=== PATIENT | male | born 1965 | race Caucasian/White ===

== ENCOUNTER 2023-04-05 14:49 | Outpatient (OUT) | payer BC, SELFPAY ==
[2023-04-05 15:19] LABS: Basophils Absolute Auto 0.1 10^3/uL (0.0-0.1); Basophils Percent Auto 0.8 % (0.2-2.0); Eosinophils Absolute Auto 0.1 10^3/uL (0.0-0.7); Eosinophils Percent Auto 1.3 % (0.9-7.0); Hematocrit 43.9 % (42.0-54.0); Hemoglobin 15.1 g/dL (14.0-18.0); Immature Granulocytes Abs Auto 0.02 10^3/uL (0.00-0.03); Immature Granulocytes Pct Auto 0.3 % (0.0-0.5); Lymphocytes Absolute Auto 2.6 10^3/uL (1.2-3.8); Mean Corpuscular HGB Conc 34.4 g/dL (29.9-35.2); Mean Corpuscular Hemoglobin 32.8 pg (25.9-34.0); Mean Corpuscular Volume 95.4 fL (80.0-94.0); Mean Platelet Volume 9.1 fL (9.5-13.5); Monocytes Absolute Auto 0.7 10^3/uL (0.3-0.8); Monocytes Percent Auto 10.5 % (1.7-12.0); Neutrophils Absolute Auto 2.8 10^3/uL (1.4-6.5); Neutrophils Percent Auto 45.1 % (43.0-75.0); Platelet Count 265 10^3/uL (150-450); Red Cell Distribution Width 12.6 % (11.0-15.0); White Blood Count 6.3 10^3/uL (4.0-11.0)
[2023-04-05 15:37] LABS: Alanine Aminotransferase 16 U/L (16-63); Albumin Globulin Ratio 1.2; Albumin Level 3.6 g/dL (3.4-5.0); Alkaline Phosphatase 76 U/L (46-116); Anion Gap 7.7; Aspartate Amino Transferase 24 U/L (15-37); BUN Creatinine Ratio 12.2; Bilirubin Total 0.4 mg/dL (0.2-1.0); Calcium 8.6 mg/dL (8.5-10.1); Carbon Dioxide 32.1 mmol/L (21.0-32.0); Chloride 103 mmol/L (98-107); Chol HDL Ratio 3.8; Cholesterol 181 mg/dL (<=200); Estimated GFR (African America >60 (>=60); Estimated GFR (Non-African Ame >60 (>=60); Glucose 88 mg/dL (74-106); HDL Cholesterol 48 mg/dL (40-60); Potassium 3.8 mmol/L (3.5-5.1); Sodium 139 mmol/L (136-145); Total Protein 6.6 g/dL (6.4-8.2); Triglycerides 150 mg/dL (<=150)
== END 2023-04-05 14:50 | disposition home or self-care (01) ==
PROVIDERS: PCP Nurse Practitioner Family; Visit Provider Nurse Practitioner Family
DX: Z00.00 Encounter for general adult medical examination without abnormal findings (principal); Z13.220 Encounter for screening for lipoid disorders; Z13.228 Encounter for screening for other metabolic disorders; Z13.0 Encounter for screening for diseases of the blood and blood-forming organs and certain disorders involving the immune mechanism
CPT/HCPCS: 36415; 80053; 80061; 85025

== ENCOUNTER 2023-04-23 15:00 | Outpatient (OUT) | payer BC, SELFPAY ==
--- NOTE | 2023-04-23 15:03 | CT_ITS ---
The [address] [address] Patient Name: BRYANT RICHARD MRN: [id number] date: 1965 Sex: M Assigned Patient Location: CT Current Patient Location: Accession/Order Number: [id number] Exam Date: 04/23/2023 15:10 Report Date: 04/24/2023 04:16 At the request of: NICOLA BELTRAN Procedure: CT lung screening low-dose EXAMINATION: CT lung screening low-dose HISTORY: Nicotine dependence F17.210 COMPARISON: No relevant comparison available. TECHNIQUE: Axial, Coronal, and Sagittal images were created without the administration of IV contrast material. Dose reduction techniques were achieved by using automated exposure control and/or adjustment of mA and/or kV according to patient size and/or use of iterative reconstruction technique. FINDINGS: LUNGS: Mild emphysematous changes. Several 5 mm smoothly circumscribed pleural-based nodules. PLEURA: No pleural effusion or pneumothorax. VASCULATURE: No abnormality. REGAN: No mass or pathologic adenopathy. MEDIASTINUM: No mass or pathologic adenopathy. CARDIAC: No enlargement, pericardial thickening, or significant calcification. AORTA: No aneurysm or dissection. CHEST WALL: No mass or axillary adenopathy BONES: No bone lesion or fracture. LIMITED ABDOMEN: No suspicious findings. Limited images of the upper abdomen. OTHER: Negative. CT/CT lung screening low-dose IMPRESSION: 1. Lung-RADS Category 3- Probably benign. Probably benign finding(s)- short term follow up suggested; includes nodules with a low likelihood of becoming a clinically active cancer. Six month LDCT. Electronically authenticated by: DINESH SANCHEZ Date: 04/24/2023 04:16
== END 2023-04-23 15:01 | disposition home or self-care (01) ==
LOC: CT 15:00
PROVIDERS: PCP Nurse Practitioner Family; Visit Provider Nurse Practitioner Family
DX: F17.210 Nicotine dependence, cigarettes, uncomplicated (principal)
CPT/HCPCS: 71271

== ENCOUNTER 2023-05-29 09:43 | Outpatient (OUT) | payer BC, SELFPAY ==
[2023-05-30 08:11] LABS: Testosterone 551 ng/dL (264-916)
== END 2023-05-29 09:44 | disposition home or self-care (01) ==
LOC: LAB 09:44
PROVIDERS: PCP Nurse Practitioner Family; Visit Provider Urology
DX: N52.9 Male erectile dysfunction, unspecified (principal)
CPT/HCPCS: 36415; 84403

== ENCOUNTER 2025-07-27 10:05 | Outpatient (OUT) | payer BC, SELFPAY ==
--- OUTSIDE RECORDS SUMMARY | 2025-06-30 13:15 | XMS_ITS | Encounter Summary ---
Author Organization [facility] Address [address] [facility] [address] [place] [place] [address] Care Team Providers Care Human Resources Clerk Name Role Phone Dorothea White RAEANN-ELECTRICAL ELECTRONICS ENGINEER Unavailable [phone] Mar Singh MD Unavailable Reason for Visit * ReasonCommentsPost Op Check Encounter Details DateTypeDepartmentCare Team (Latest Contact Info)Vkcwiuxqzzb39/19/2025 1:15 PM ESTOffice Visit [facility] [address] [place] [address] Mar Singh MD [address] [facility] [place] [address] Encounter for attention to colostomy (HCC) (Primary Dx); Body mass index (BMI) 26.0-26.9, adult Social History Tobacco UseTypesPacks/DayYears UsedDateSmoking Tobacco: Some DaysCigarettes Smokeless Tobacco: Never Tobacco Cessation:Counseling Given: Yes [facility] UtilitiesAnswerDate RecordedIn the past 12 months has the [employer], gas, oil, or water [employer] threatened to shut off services in your home?No04/26/2025 Humiliation, Afraid, Rape, and Kick questionnaireAnswerDate RecordedFear of Current or Ex-PartnerNot on file04/26/2025Within the last year, have you been humiliated or emotionally abused in other ways by your partner or ex-partner?No 04/26/2025Physically AbusedNot on file04/26/2025Sexually AbusedNot on file 04/26/2025Hunger Vital SignAnswerDate RecordedWithin the past 12 months, you worried that your food would run out before you got the money to buymore.Never true04/26/2025Ran Out of Food in the Last YearNot on file04/26/2025PRAPARE - TransportationAnswerDate RecordedIn the past 12 months, has lack of transportation kept you from medical appointments or from getting medications?No 04/26/2025Lack of Transportation (Non-Medical)Not on file04/26/2025Housing Stability Vital SignAnswerDate RecordedIn the last 12 months, was there a time when you were not able to pay the mortgage or rent on time?No04/26/2025Number of Times Moved in the Last YearNot on file04/26/2025Homeless in the Last YearNot on file04/26/2025Utilities - HistoricalAnswerDate RecordedIn the past 12 months has the [employer], gas, oil, or water [employer] threatened to shut off services in your home?No04/26/2025Sex and Gender InformationValueDate RecordedSex Assigned at BirthNot on fileLegal HsiFfsh9704/25/2025 9:14 PM EDTGender IdentityNot on file Sexual OrientationNot on filedocumented as of this encounter Last Filed Vital Signs Vital SignReadingTime TakenCommentsBlood Twmhygpk671/8206/30/2025 1:10 PM EST Mnffb470906/30/2025 1:10 PM ESTTemperature--Respiratory Rate--Oxygen Saturation-- Inhaled Oxygen Concentration--Kkpgwz48.9 kg (185 lb)06/30/2025 1:10 PM ESTHeight 177.8 cm (5' 10 )06/30/2025 1:10 PM ESTBody Mass Index26.5406/30/2025 1:10 PM ESTdocumented in this encounter Progress Notes * Mar Singh MD - 06/30/2025 1:15 PM EST [facility] Follow Up Cr Hall is a 59 year old male with obesity (BMI 26), tobacco use, diverticulitis s/p open Kourtney's with Drs. Milton and Americo on 04/30/25 here for follow-up. HPI: He was last seen by me in the office on 06/03/25 at which time he wasn't feeling a whole lot bettercompared to before surgery. He described chronic indigestion with decreased appetite and difficultywith this stoma bag. He saw Dorothea Valentinoalan on a weekly basis and they identified a pouching system that appears to be working. I did order a CT adrenal for him which he has this afternoon. Today he says he is doing well. He denies pain, bleeding. His stoma is pouching well and his wound is healing. Stoma has good function and has been stable in size. He has no complaints. Colonoscopy 1 year ago per patient report with precancerous polyps removed. Medical History[1] Surgical History[2] Medications Ordered Prior to Encounter[3] Allergies: Allergies[4] Family History[5] Social History[6] Review of Systems: A complete review of systems was performed and is negative except as noted in the HPI Physical Examination: Vitals Recorded in This Encounter No data found in the last 1 encounters. BMI: Data Unavailable General: No distress, awake Skin: No jaundice or rashes HEENT: Normocephalic, mucous membranes moist Lungs: Normal work of breathing Abdomen: Soft, nontender, nondistended. No masses. Healing midline wound, small colostomy which is pink, healthy peristomal skin. Extremities: Warm, no edema Neuro: Grossly intact Assessment & Plan Encounter for attention to colostomy (HCC) Doing well! Reports a colonoscopy last year. I would wait at least 6 months from the time of his surgery to reverse - today is two months. - Return to clinic 2 months to discus reversal in October Documentation: Mode: In Person Time-Based Billing Justifications: Charting in Epic Patient visit (including performing a medically appropriate exam) Obtaining history (or reviewing separately obtained history) Reviewing (chart, labs, and other clinical notes) Counseling/educating the patient/family/caregiver Mar Singh MD 06/30/25 7:55 AM [1] No past medical history on file. [2] Past Surgical History: Procedure Laterality Date INSERTION, STENT Bilateral 04/30/2025 Procedure: INSERTION, STENT; Surgeon: Domonique Milton MD; Location: PERIOPERATIVE SERVICES; Service: General LAPAROTOMY, EXPLORATORY N/A 04/30/2025 Procedure: Exploratory laparotomy, abdominal washout, sigmoidectomy, end colostomy, drainage pelvisabscess; Surgeon: Domonique Milton MD; Location: PERIOPERATIVE SERVICES; Service: General [3] Current Outpatient Medications on File Prior to Visit Medication Sig Dispense Refill AMOXICILLIN ORAL Take by mouth. acetaminophen (TYLENOL) 500 MG tablet Take 2 Tablets by mouth every 8 hours. 60 Tablet 0 methocarbamol (ROBAXIN) 750 MG tablet Take 1 Tablet by mouth every 6 (six) hours. 120 Tablet 3 pantoprazole (PROTONIX) 40 MG tablet Take 40 mg by mouth daily. No current facility-administered medications on file prior to visit. [4] No Known Allergies [5] No family history on file. [6] Social History Socioeconomic History Marital status: Tobacco Use Smoking status: Some Days Types: Cigarettes Smokeless tobacco: Never Vaping Use Vaping status: Never Used Social Drivers of Studentgems Food Insecurity: Unknown (04/26/2025) Hunger Vital Sign Worried About Running Out of Food in the Last Year: Never true Transportation Needs: Unknown (04/26/2025) PRAPARE - Transportation Lack of Transportation (Medical): No Intimate Partner Violence: Unknown (04/26/2025) Humiliation, Afraid, Rape, and Kick questionnaire Emotionally Abused: No documented in this encounter Plan of Treatment DateTypeDepartmentCare Team (Latest Contact Info)Hlnbfprvsod27/30/2025 1:30 PM ESTOffice Visit [facility] [address] [place] [phone] Dorothea White APRN-MCKENZIE [address] [place] [address] 09/01/2025 1:30 PM ESTOffice Visit [facility] General Surgery [address] [place] [address] Mar Singh MD [address] [place] [address] documented as of this encounter Visit Diagnoses Diagnosis Encounter for attention to colostomy (HCC)- Primary Attention to colostomy Body mass index (BMI) 26.0-26.9, adult documented in this encounter Care Teams Team MemberRelationshipSpecialtyStart DateEnd Date Thombs, Dorothea, [employer] HRMS DEVELOPER-ELECTRICAL ELECTRONICS ENGINEER [address] [place], [place] [id number] APNGeneral Slptepd04/6/25 Mar Singh MD [address] [place] [address] PhysicianGeneral Faxgifw59/6/25documented as of this encounter
--- OUTSIDE RECORDS SUMMARY | 2025-07-14 14:00 | XMS_ITS | Encounter Summary ---
Author Organization [facility] Address [address] [place] [address] Care Team Providers Care Tar Distillation Supervisor Name Role Phone Christopher Dorothea MACHINE HEEL SEAT LASTER-CONSTRUCTION SITE CROSSING GUARD Unavailable [phone] Mar Singh MD Unavailable Reason for Visit * ReasonCommentsWound CheckColostomy in place Encounter Details DateTypeDepartmentCare Team (Latest Contact Info)Tzaqlzworeu30/03/2025 2:00 PM ESTOffice Visit [facility] [address] [place] [address] Dorothea White, MACHINE HEEL SEAT LASTERCONSTRUCTION SITE CROSSING GUARD [address] [place], [place] [phone] 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); Peristomal dermatitis associated with moisture; Open wound of anterior abdominal wall with complication, subsequent encounter Social History Tobacco UseTypesPacks/DayYears UsedDateSmoking Tobacco: Some DaysCigarettes Smokeless Tobacco: NeverAHC UtilitiesAnswerDate RecordedIn the past 12 months has the [employer], gas, oil, or water [employer] threatened to shut off services in your home?No04/26/2025Humiliation, Afraid, Rape, and Kick questionnaireAnswer Date RecordedFear of Current or Ex-PartnerNot on file04/26/2025Within the last year, have you been humiliated or emotionally abused in other ways by your partner or ex-partner?No04/26/2025Physically AbusedNot on file04/26/2025Sexually AbusedNot on file04/26/2025Hunger Vital SignAnswerDate RecordedWithin the past 12 months, you worried that your food would run out before you got the money to buymore.Never true04/26/2025Ran Out of Food in the Last YearNot on file 04/26/2025PRAPARE - TransportationAnswerDate RecordedIn the past 12 months, has lack of transportation kept you from medical appointments or from getting medications?No04/26/2025Lack of Transportation (Non-Medical)Not on file 04/26/2025Housing Stability Vital SignAnswerDate RecordedIn the last 12 months, was there a time when you were not able to pay the mortgage or rent on time?No 04/26/2025Number of Times Moved in the Last YearNot on file04/26/2025Homeless in the Last YearNot on file04/26/2025Utilities - HistoricalAnswerDate RecordedIn the past 12 months has the electric, gas, oil, or water company threatened to shut off services in your home?No04/26/2025Sex and Gender InformationValueDate RecordedSex Assigned at BirthNot on fileLegal LapFefj1304/25/2025 9:14 PM EDT Gender IdentityNot on fileSexual OrientationNot on filedocumented as of this encounter Patient Instructions * Patient Instructions* Dorothea White APRN-CNS - 07/14/2025 2:20 PM EST Clean skin around stoma using soap and water, then dry. Use the domboro's solution soak only when needed for irritated skin, otherwise you can skip this step Apply ostomy powder all over skin- OK if it gets on the ostomy. Rub in the powder and brush off theexcess. Apply skin barrier all over skin to seal and to protect skin. Apply hollihesive triangle to skin, cut center out to accommodate ostomy Apply small bead of paste on sides of ostomy- at 3 and 9 o'clock Cut the pouch to about 7/8 size, oval and apply paste to edge of opening Apply the one piece Coloplast pouch. Apply curved barrier strips. Wear belt Follow up in 2 weeks. documented in this encounter Progress Notes * Dorothea White APRN-CNS - 07/14/2025 2:00 PM EST Ostomy Clinic Visit Patient was identified by name and date of . Preferred Language: Ethiopian Intervention Used: none HPI: 59 yo male with PMH of BPH, recently admitted with perforated diverticulitis S/p open sigmoidectomy, abdominal washout, end colostomy with rectal stump (Kourtney Procedure) with Dr Milton and Dr Driscoll on 04/30/25. Using the [place] hollihesive, paste applied to edge of pouch opening. coloplast deep convex pouchwith curved barrier strips and belt Pouch placed Saturday, still intact but with leakage medially Home is coming weekly to help with dressings/pouching Medical History[1] Surgical History[2] Allergies[3] Medications Ordered Prior to Encounter[4] Problem List[5] Review Of Systems: Skin: abdominal wounds Gastrointestinal: ostomy Neurologic: weakness Exam: General: No signs of distress, A+Ox3, ambulated to room independently Type of Stoma: colostomy and end Location: [facility] Present: no Stoma Measurement (inches) 3/4 , cut to 1 inch, oval Mucosa color/condition: red and moist Mucocutaneous Juncture: separation is minimal and healing well Peristomal Skin: intact, slight maceration just under ostomy due to location of opening Peristomal Contour: semi-firm abdomen with large mound of skin superiorly and ostomy in concave area under this mound Supportive Tissue: semi-firm Output: semi-loose stool Protrusion: skin level Pouch Changed: yes Pouch/Appliance: Peristomal skin cleansed using soap and water, then dried. Skin then dusted with nystatin powder. Excess powder dusted off and no sting barrier film applied. [place] hollihesive, paste applied to edge of pouch opening. Midline wounds covered in aquacel AG followed by rectangle hollihesive. Paste applied to medial edge of rectangle to caulk. Placed patient in a coloplast deep convex pouch with curved barrier strips and belt. 2 remaining open areas along surgical incision, mainly superior to ostomy. Hypergranular- silver nitrate applied. Smaller in size. Patient Education: Reviewed ostomy pouching procedure with patient. Reviewed wound care instructions. Time-based billing justifications: Reviewing (chart, labs, and other clinical notes) Obtaining history (or reviewing separately obtained history) Patient visit (including performing a medically appropriate exam) Counseling/educating the patient/family/caregiver Charting in [facility] Impression: 59 yo male with healing abdominal wounds, continue with pouching with deep convexity, added some beads of paste to sides today Plan: Clean skin around stoma using soap and water, then dry. Use the domboro's solution soak only when needed for irritated skin, otherwise you can skip this step Apply ostomy powder all over skin- OK if it gets on the ostomy. Rub in the powder and brush off theexcess. Apply skin barrier all over skin to seal and to protect skin. Apply hollihesive triangle to skin, cut center out to accommodate ostomy Apply small bead of paste on sides of ostomy- at 3 and 9 o'clock Cut the pouch to about 7/8 size, oval and apply paste to edge of opening Apply the one piece Coloplast pouch. Apply curved barrier strips. Wear belt Follow up in 2 weeks. Dorothea White, MACHINE HEEL SEAT LASTER- CONSTRUCTION SITE CROSSING GUARD, CWOCN [1] No past medical history on file. [2] Past Surgical History: Procedure Laterality Date INSERTION, STENT Bilateral 04/30/2025 Procedure: INSERTION, STENT; Surgeon: Domonique Milton MD; Location: PERIOPERATIVE SERVICES; Service: General LAPAROTOMY, EXPLORATORY N/A 04/30/2025 Procedure: Exploratory laparotomy, abdominal washout, sigmoidectomy, end colostomy, drainage pelvisabscess; Surgeon: Domonique Milton MD; Location: PERIOPERATIVE SERVICES; Service: General [3] No Known Allergies [4] Current Outpatient Medications on File Prior to Visit Medication Sig Dispense Refill AMOXICILLIN ORAL Take by mouth. (Patient not taking: Reported on 06/30/2025) acetaminophen (TYLENOL) 500 MG tablet Take 2 Tablets by mouth every 8 hours. (Patient not taking: Reported on 06/30/2025) 60 Tablet 0 methocarbamol (ROBAXIN) 750 MG tablet Take 1 Tablet by mouth every 6 (six) hours. (Patient not taking: Reported on 06/30/2025) 120 Tablet 3 pantoprazole (PROTONIX) 40 MG tablet Take 40 mg by mouth daily. No current facility-administered medications on file prior to visit. 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 Low back pain M54.50 Muscle strain of anterior chest wall S29.011A documented in this encounter Plan of Treatment DateTypeDepartmentCare Team (Latest Contact Info)Ebmanmvumwb80/30/2025 1:30 PM ESTOffice Visit [facility] [address] [place] [phone] Dorothea White APRN-CNS [address] [place], [place] [phone] 09/01/2025 1:30 PM ESTOffice Visit [facility] General Surgery [address] [place] [address] Mar Singh MD [address] [place] [address] [address] [place], [place] [phone] documented as of this encounter Visit Diagnoses Diagnosis Colostomy in place (HCC)- Primary Colostomy status Peristomal dermatitis associated with moisture Open wound of anterior abdominal wall with complication, subsequent encounter documented in this encounter Care Teams Team MemberRelationshipSpecialtyStart DateEnd Date Dorothea White APRN-CNS [address] [place] [id number] APNGeneral Qnjwlub80/6/25 Mar Singh MD [address] [place] [address] [place] [address] PhysicianGeneral Zipskvn35/6/25documented as of this encounter
--- OUTSIDE RECORDS SUMMARY | 2025-07-23 15:00 | XMS_ITS | Encounter Summary ---
Author Organization [facility] Address [address] [facility] [address] [place] [address] Care Team Providers Care Family Preservation Caseworker Name Role Phone Dorothea White RAEANN-AUTOMOBILE REPAIR SERVICE ESTIMATOR Unavailable [phone] Mar Singh MD Unavailable Reason for Visit * MRI/CAT Scan (Routine) - Pending ReviewSpecialtyDiagnoses / ProceduresReferred By ContactReferred To ContactRadiology Diagnoses Lesion of adrenal gland (HCC) Procedures CT ADRENAL W/+W/O CONTRAST Mar Singh MD [address] [facility] [place] [address] Phone: tel: fax: [facility] CT SCAN Phone: tel: Referral IDStatusReasonStart DateExpiration DateVisits RequestedVisits [id number] Review Patient Preference Encounter Details DateTypeDepartmentCare Team (Latest Contact Info)Tnjvppoidam87/12/2025 3:00 PM ESTAncillary Procedure [facility] [address] [place] [address] Arrived Social History Tobacco UseTypesPacks/DayYears UsedDateSmoking Tobacco: Some DaysCigarettes Smokeless Tobacco: NeverAHC UtilitiesAnswerDate RecordedIn the past 12 months has the electric, gas, oil, or water [employer] threatened to shut off services in your [...] has the electric, gas, oil, or water [employer] threatened to shut off services in your home?No04/26/2025Sex and Gender InformationValueDate RecordedSex Assigned at BirthNot on fileLegal FhcHxcy5404/25/2025 9:14 PM EDT Gender IdentityNot on fileSexual OrientationNot on filedocumented as of this encounter Plan of Treatment DateTypeDepartmentCare Team (Latest Contact Info)Qgynrzqeifz80/30/2025 1:30 PM ESTOffice Visit [facility] [address] [place] [address] Dorothea White APRN-MCKENZIE [address] [place] [address] 09/01/2025 1:30 PM ESTOffice Visit [facility] [id number] [place] [address] Mar Singh MD [address] [facility] [place] [address] documented as of this encounter Procedures Procedure NamePriorityDate/TimeAssociated DiagnosisCommentsCT ADRENAL W/+W/O DIBFCMTEHklowgg18/12/2025 3:35 PM EST Lesion of adrenal gland (HCC) documented in this encounter Results * CT ADRENAL W/+W/O CONTRAST (07/23/2025 3:35 PM EST)ComponentValueRef RangeTest MethodAnalysis TimePerformed AtPathologist SignatureCTDI VOL0.03 (mGy),0.03 (mGy),9.99 (mGy),8.98 (mGy),9.96 (mGy)RADIOLOGYPHANTOM TYPEIEC Body Dosimetry Phantom,IEC Body Dosimetry Phantom,IEC Body Dosimetry Phantom,IEC Body DosimetryPhantom,IEC Body Dosimetry PhantomRADIOLOGYCT LQD480 (mGy.cm) RADIOLOGYCT SeriesTopogram,Topogram,ADRENAL WO,ADRENAL WITH,15 MIN DELAY RADIOLOGYAnatomical RegionLateralityModalityCT AbdomenN/AComputed Tomography Specimen (Source)Anatomical Location / LateralityCollection Method / Volume Collection TimeReceived Time07/26/2025 2:35 PM EST Impressions 07/26/2025 2:53 PM EST 1. ??A right adrenal mass is present which has enhancement features which are consistent with a benign adenoma. Suggest correlation with laboratory values to assess whether this is functioning. No imaging follow-up is recommended.. MACRO: None Narrative 07/26/2025 2:53 PM EST EXAMINATION: CT ADRENAL W/+W/O CONTRASTPRO 07/23/2025 03:35 PM CLINICAL HISTORY: Adrenal lesion ASSOCIATED DIAGNOSIS: Lesion of adrenal gland (HCC) ORDERING PROVIDER: MAR SINGH TECHNOLOGISTS NOTE: COMPARISON: None TECHNIQUE: Contiguous unenhanced axial images were obtained through the adrenals. ??Following administration of intravenous contrast, contiguous axial images were obtained through the abdomen from the level of the diaphragmatic domes through iliac crest. 2D sagittal and coronal reconstructions wereobtained from the axial data. ??Delayed imaging obtained to calculate washout were also performed. Before infusion of intravenous contrast, radiology personnel investigated the possibility of an allergic history and any history of reaction to iodinated contrast material. Contrast Protocol: Omnipaque 350 [>or =100lb] 100 ml [<100 lb] 1 ml per 1 lb. INTRA-PROCEDURE MEDS: iohexol (OMNIPAQUE) 350 MG/ML injection 100 mL Route: Intravenous Findings: Included images of the lower thorax: There is elevation of the right hemidiaphragm with mild right lower lobe atelectasis. Minimal fibrosis is suggested within the inferior aspect of the lingula. No pleural effusions are identified. Hepatobiliary: Severe hepatic steatosis. 1 cm cyst is identified within segment 3 of the liver. Hepatomegaly. The craniocaudal dimension of the liver is 23 cm. Gallbladder: The gallbladder appears grossly unremarkable. Pancreas: Unremarkable Spleen: Unremarkable Adrenal glands: A left sided adrenal mass is present measuring 1.5 x 1.2 cm on image 48 of series number (precontrast). There is obvious central fat within the lesion. On the unenhanced images, the mass has an average attenuation of 19 Hounsfield unit (HU) on image #48. During the early enhanced phase, the mass has attenuation of 91 HU on image #53. During the delayed phase, the mass has attenuation of 42 HU on image #27. This lesion is not hyperenhancing. This corresponds to an absolute washout percentage of 68%. Kidneys: No calculi or hydroureteronephrosis. 18 mm Bosniak 1 lesion is identified within the upperpole of the left kidney. Abdominal vasculature: Mild atherosclerotic disease of the abdominal aorta. There are 2 renal arteries which are patent bilaterally. GI tract: No evidence of obstruction. Peritoneum and retroperitoneum: No free fluid or free air is noted. Lymph Nodes: No abdominal lymphadenopathy is evident Visualized musculoskeletal structures: No acute fracture or destructive osseous lesion is identified. Procedure Note Reece Delgado MD - 07/26/2025 EXAMINATION: CT ADRENAL W/+W/O CONTRASTPRO 07/23/2025 03:35 PM CLINICAL HISTORY: Adrenal lesion ASSOCIATED DIAGNOSIS: Lesion of adrenal gland (HCC) ORDERING PROVIDER: MAR SINGH TECHNOLOGISTS NOTE: COMPARISON: None TECHNIQUE: Contiguous unenhanced axial images were obtained through theadrenals. Following administration of intravenous contrast, contiguousaxial images were obtained through the abdomen from the level of thediaphragmatic domes through iliac crest. 2D sagittal and coronalreconstructions were obtained from the axial data. Delayed imagingobtained to calculate washout were also performed. Before infusion ofintravenous contrast, radiology personnel investigated the possibility ofan allergic history and any history of reaction to iodinated contrastmaterial. Contrast Protocol: Omnipaque 350 [>or =100lb] 100 ml [<100 lb] 1ml per 1 lb. INTRA-PROCEDURE MEDS: iohexol (OMNIPAQUE) 350 MG/ML injection 100 mLRoute: Intravenous Findings: Included images of the lower thorax: There is elevation of the right hemidiaphragm with mild right lower lobe atelectasis. Minimal fibrosis is suggested within the inferior aspect of the lingula. No pleural effusionsare identified. Hepatobiliary: Severe hepatic steatosis. 1 cm cyst is identified withinsegment 3 of the liver. Hepatomegaly. The craniocaudal dimension of theliver is 23 cm. Gallbladder: The gallbladder appears grossly unremarkable. Pancreas: Unremarkable Spleen: Unremarkable Adrenal glands: A left sided adrenal mass is present measuring 1.5 x 1.2cm on image 48 of series number (precontrast). There is obvious centralfat within the lesion. On the unenhanced images, the mass has an averageattenuation of 19 Hounsfield unit (HU) on image #48. During the earlyenhanced phase, the mass has attenuation of 91 HU on image #53. During thedelayed phase, the mass has attenuation of 42 HU on image #27. This lesionis not hyperenhancing. This corresponds to an absolute washout percentageof 68%. Kidneys: No calculi or hydroureteronephrosis. 18 mm Bosniak 1 lesion is identified within the upper pole of the left kidney. Abdominal vasculature: Mild atherosclerotic disease of the abdominalaorta. There are 2 renal arteries which are patent bilaterally. GI tract: No evidence of obstruction. Peritoneum and retroperitoneum: No free fluid or free air is noted. Lymph Nodes: No abdominal lymphadenopathy is evident Visualized musculoskeletal structures: No acute fracture or destructiveosseous lesion is identified. IMPRESSION: 1. A right adrenal mass is present which has enhancement features whichare consistent with a benign adenoma. Suggest correlation with laboratoryvalues to assess whether this is functioning. No imaging follow-up isrecommended.. MACRO: None Authorizing ProviderResult TypeResult StatusAlicia [facility] CT SCANFinal Result documented in this encounter Visit Diagnoses Diagnosis Lesion of adrenal gland (HCC) documented in this encounter Administered Medications Medication OrderMAR ActionAction DateDoseRateSite iohexol (OMNIPAQUE) 350 MG/ML injection 100 mL, Intravenous, Once at Radiology exam, 1 dose, Starting on Sat07/23/25 at 1518, Until Sat07/23/25 at 1515, Imaging Protocol Orders Given07/23/2025 3:15 PM BSQ093 mLdocumented in this encounter Care Teams Team MemberRelationshipSpecialtyStart DateEnd Date Dorothea White APRN-AUTOMOBILE REPAIR SERVICE ESTIMATOR [address] [place], [place] [id number] APNGeneral Mpjrrte82/6/25 Mar Singh MD [address] [place] [address] PhysicianGeneral Whpshhr76/6/25documented as of this encounter
--- OUTSIDE RECORDS SUMMARY | 2025-07-26 13:00 | XMS_ITS | Encounter Summary ---
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) Social History Tobacco UseTypesPacks/DayYears UsedDateSmoking Tobacco: Some DaysCigarettes Smokeless Tobacco: NeverAHC UtilitiesAnswerDate RecordedIn the past 12 months has the electric, gas, oil, or water [employer] threatened to shut off services in your [...] InformationValueDate RecordedSex Assigned at BirthNot on fileLegal VkpNqfk7504/25/2025 9:14 PM EDT Gender IdentityNot on fileSexual OrientationNot on filedocumented as of this encounter Patient Instructions * Patient Instructions* Dorothea White APRN-CNS - 07/26/2025 1:25 PM EST Clean skin around stoma using [...] skin, cut center out to accommodate ostomy Cut the pouch to about 7/8 size, oval and apply paste to edge of opening Apply the one piece Coloplast pouch. Apply curved barrier strips. Wear belt Follow up in 2 weeks. documented in this encounter Progress Notes * Dorothea White APRN-CNS - 07/26/2025 1:00 PM EST Ostomy Clinic Visit Patient was identified by name and date of . Preferred Language: Bengali Intervention Used: none HPI: 60 yo male with PMH of BPH, recently admitted with perforated diverticulitis S/p open sigmoidectomy, abdominal washout, end colostomy with rectal stump (Kourtney Procedure) with Dr Milton and Dr Driscoll on 04/30/25. Using the Corona hollihesive, paste applied to edge of pouch opening. coloplast deep convex pouchwith curved barrier strips and belt Pouch placed 4 days ago- seal intact Home is coming weekly to help with dressings/pouching though they may be done soon. assists with changes. Medical History[1] Surgical History[2] Allergies[3] Medications Ordered Prior to Encounter[4] Problem List[5] Review Of Systems: Skin: abdominal wounds Gastrointestinal: ostomy Neurologic: weakness Exam: General: No signs of distress, A+Ox3, ambulated to room independently Type of Stoma: colostomy and end Location: LLQ [place] Present: no Stoma Measurement (inches) 3/4 , cut to 7/8 , oval Mucosa color/condition: red and moist Mucocutaneous Juncture: separation is minimal and healing well Peristomal Skin: intact Peristomal Contour: semi-firm abdomen with large mound of skin superiorly and ostomy in concave area under this mound Supportive Tissue: semi-firm Output: semi-loose stool Protrusion: skin level Pouch Changed: yes Pouch/Appliance: Peristomal skin cleansed using soap and water, then dried. Skin then dusted with nystatin powder. Excess powder dusted off and no sting barrier film applied. Corona hollihesive, paste applied to edge of pouch opening. Placed patient in a coloplast deep convex pouch with curved barrier strips and belt. Patient Education: Reviewed ostomy pouching procedure with patient. Reviewed wound care instructions. Time-based billing justifications: Reviewing (chart, labs, and other clinical notes) Obtaining history (or reviewing separately obtained history) Patient visit (including performing a medically appropriate exam) Counseling/educating the patient/family/caregiver Charting in Epic Impression: 60 yo male with healing abdominal wounds, continue with pouching with deep convexity, Plan: Clean skin around stoma using soap [...] skin, cut center out to accommodate ostomy Cut the pouch to about 7/8 size, oval and apply paste to edge of opening Apply the one piece Coloplast pouch. Apply curved barrier strips. Wear belt Follow up in 2 weeks. ZAIN Aleman, CWOCN [1] No past medical history on [...] Plan of Treatment DateTypeDepartmentCare Team (Latest Contact Info)Iwzwatsoyjg51/30/2025 1:30 PM ESTOffice Visit [facility] [place] [address] Dorothea White APRN-CNS [address] [place], [place] [id number] 09/01/2025 1:30 PM ESTOffice Visit [facility] General Surgery [address] [place] [address] Mar Singh MD [address] [facility] [place] [address] documented as of this encounter Visit Diagnoses Diagnosis Colostomy in place (HCC)- Primary Colostomy status documented in this encounter Care Teams Team MemberRelationshipSpecialtyStart DateEnd Date Dorothea White APRN-CNS [address] [place] [address] APNGeneral Diylbiq86/6/25 Mar Singh MD [address] [place] [address] [place] [address] PhysicianGeneral Bwhnbor98/6/25documented as of this encounter
--- OUTSIDE RECORDS SUMMARY | 2025-07-27 10:08 | XMS_ITS | Clinical Summary ---
Author Organization [facility] Address [address] [place] [address] Care Team Providers Care Red Mud Thickener Operator Name Role Phone Ivania Blas NP Primary Care Provider Social History Tobacco UseTypesPacks/DayYears UsedDateSmoking Tobacco: Never AssessedSex and Gender InformationValueDate RecordedSex Assigned at BirthNot on fileLegal Sex Male10/24/2022 7:36 PM EDTGender IdentityNot on fileSexual OrientationNot on file Plan of Treatment Not on file Insurance Care Teams Team MemberRelationshipSpecialtyStart DateEnd Date Ivania Blas NP [address] [place] [address] [place] [address] PCP - GeneralFamily Medicine05/04/25
--- NOTE | 2025-07-27 10:09 | CT_ITS ---
The [address] [address] Patient Name: BRYANT RICHARD MRN: [id number] date: 1965 Sex: M Assigned Patient Location: CT Current Patient Location: CT Accession/Order Number: [id number] Exam Date: 07/27/2025 10:15 Report Date: 07/27/2025 11:22 At the request of: NICOLA BELTRAN Procedure: CT lung screening low-dose LOW-DOSE SCREENING CHEST CT WITHOUT CONTRAST COMPARISON: 04/23/2023 CLINICAL DATA: Current smoker with 33 pack year history. Spiral axial unenhanced images were obtained through the chest. Images were reviewed using both narrow and wide window settings. This CT exam was performed using one or more following dose reduction techniques: Automated exposure control, adjustment of the mA and/or kV according to patient size, or use of iterative reconstruction technique. The heart is normal size. No pericardial effusion is present. Minimal coronary disease is seen. The ascending aorta is slightly ectatic. Minor plaque is visualized at the aortic arch. No adenopathy is seen. Mild endplate spurring is present at the spine. There is minor apical scarring. There is also atelectasis or scarring adjacent to an elevated right hemidiaphragm and at the lingula. There is no additional consolidation, pleural effusion or pneumothorax. There are stable subpleural nodules, 2 at the right upper, 2 at the right middle and 1 at the left lower lobe. No developing nodularity is seen. Limited imaging through the upper abdomen shows possible fatty liver. CT/CT lung screening low-dose IMPRESSION: MILD ATELECTASIS AND/OR SCARRING. STABLE SUBPLEURAL NODULES. NO NEW ABNORMALITIES. Lung RADS category 2 - benign Twelve-month low-dose CT follow-up suggested Impression dictated by: Viviana Madera M.D. 07/27/2025 11:22 AM Dictation Location: [facility] HOSPITALVostu Electronically authenticated by: [id number] Y Date: 07/27/2025 11:22
--- OUTSIDE RECORDS SUMMARY | 2025-07-27 10:10 | XMS_ITS | Clinical Summary ---
Author Organization [facility] Address [address] [facility] [address] [place] [address] Care Team Providers Care Java Programmer Name Role Phone Dorothea White RAEANN-BAG LOADER MACHINE OPERATOR Unavailable [phone] Mariangel Singh MD Unavailable Source Comments The following information is NOT included in Care Everywhere downloads:Psychiatric notes, ECG results, Cardiac Rehab notes, Pulmonary Function notes, data from SmartForms (includes but not limited toPregnancy data,audiograms, eye exams, pre-surgical evaluation notes, well-child exam data).[facility] Allergies No known active allergies Medications MedicationSigDispense QuantityRefillsLast FilledStart DateEnd DateStatus pantoprazole (PROTONIX) 40 MG tablet Take 40 mg by mouth daily.5Active acetaminophen (TYLENOL) 500 MG tablet Take 2 Tablets by mouth every 8 hours. 60 Tablet 05/18/2025 3:06 PM EDT15Active Additional Information Patient not taking.Reported on 06/30/2025 methocarbamol (ROBAXIN) 750 MG tablet Take 1 Tablet by mouth every 6 (six) hours. 120 Tablet 3:06 PM EDT15Active Additional Information Patient not taking.Reported on 06/30/2025 AMOXICILLIN ORAL Take by mouth.ActiveHospital, Clinic, or Other Facility Administered Medication Ordered DoseRouteFrequencyStart DateEnd DateStatus silver dressing (AQUACEL [employer] ADVANTAGE) 4 X5 1 KkxkECGWEHCMcql33Ended iohexol (OMNIPAQUE) 350 MG/ML injection 100 mLIVOnce at Radiology examEnded Active Problems ProblemNoted DateDiagnosed DateMuscle strain of anterior chest wall05/03/2025 Dzdygltztyexvi49/15/2025Diverticulitis of colon with djalgzrhley26/12/2025 Gastroesophageal reflux xjuojtk6204/23/2025Low back pain12/02/2024urrent smoker 09/11/2024 Overview (05/03/2025): Comment on above: Added secondary to documentation in Social History. 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)07/23/2025 3:00 PM ESTAncillary Procedure [facility] [address] [place] [address] Zyonodx5407/14/2025 2:00 PM ESTOffice Visit [facility] [address] [place] [phone] Dorothea White NET DEVELOPER WITH WCF-BAG LOADER MACHINE OPERATOR 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); Peristomal dermatitis associated with moisture; Open wound of anterior abdominal wall with complication, subsequent encounter 06/30/2025 1:30 PM ESTOffice Visit [facility] [address] [place] [phone] Dorothea White NET DEVELOPER WITH WCF-BAG LOADER MACHINE OPERATOR 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); Open wound of anterior abdominal wall with complication, subsequent encounter; Body mass index (BMI) 26.0-26.9, adult06/30/2025 1:15 PM ESTOffice Visit [facility] [address] [place] [phone] Mariangel Singh MD Encounter for attention to colostomy (HCC) (Primary Dx); Body mass index (BMI) 26.0-26.9, adult06/23/2025 1:00 PM ESTOffice Visit [facility] [address] [place] [phone] Thombs, Dorothea, NET DEVELOPER WITH WCF-BAG LOADER MACHINE OPERATOR 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); Open wound of anterior abdominal wall with complication, subsequent encounter 06/16/2025 11:30 AM ESTOffice Visit [facility] [address] [place] [phone] Thombs, Dorothea, NET DEVELOPER WITH WCF-BAG LOADER MACHINE OPERATOR 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); Peristomal dermatitis associated with moisture; Open wound of anterior abdominal wall with complication, subsequent encounter 06/09/2025 11:30 AM EDTOffice Visit [facility] [address] [place] [phone] Thombs, Dorothea, NET DEVELOPER WITH WCF-BAG LOADER MACHINE OPERATOR 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); Peristomal dermatitis associated with moisture; Open wound of anterior abdominal wall with complication, subsequent encounter 06/09/2025Orders Only [facility] Main OR PACU [address] [place] [address] Jean Claude Hall MD 06/03/2025 1:30 PM EDTOffice Visit [facility] [address] [place] [phone] Mariangel Singh MD Postoperative follow-up (Primary Dx); Lesion of adrenal gland (HCC)06/02/2025 1:30 PM EDTOffice Visit [facility] [address] [place] [phone] Thombs, Dorothea, NET DEVELOPER WITH WCF-BAG LOADER MACHINE OPERATOR 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); Peristomal dermatitis associated with uxwfjjpg31/22/2025 12:00 PM EDTAncillary Procedure [facility] CT Scan [address] [place] [address] 06/02/2025 11:00 AM EDTAncillary Procedure [facility] CT Scan [address] [place] [address] 06/02/20251471Qhubag32/10/2025Telephone [facility] Surgery General [address] [place] [address] Mariangel Singh MD 05/19/2025Patient Outreach [facility] Care Management/Patient Access [address] [place] [address] Marlin Onofre, mobile product manager Management; Hospital follow-up05/18/2025Orders Only [facility] Radiology [address] [place] [address] Aki Vargas MD 05/18/2025Telephone [facility] Surgery General [address] [place] [address] Abdirizak Rutledge RN 05/09/20258543Foysje52/19/2025 6:23 PM EDTAnesthesia Event [facility] OR [address] [place] [address] Yuliet Booker MD Fisher, Andrew, MD 04/30/2025 4:20 PM EDT - 04/30/2025 7:21 PM EDTSurgery [facility] OR [address] [place] [address] Domonique Milton MD Exploratory laparotomy, abdominal washout, sigmoidectomy, end colostomy, drainage pelvis sljxcbo8304/30/20259470Aizsxk38/15/2025 2:42 AM EDT - 05/18/2025 4:04 PM EDTHospital Encounter [place] [address] [place] [address] Rika Feng MD Adams, Alicia, MD McQuade, Jennifer, MD Diverticulitis (Primary Dx); Open wound of abdominal wall, subsequent encounter Discharge Disposition: Discharge to Homefrom Last 3 Months Social History Tobacco UseTypesPacks/DayYears UsedDateSmoking Tobacco: Some DaysCigarettes Smokeless Tobacco: Never Tobacco Cessation:Counseling Given: Yes [facility] UtilitiesAnswerDate RecordedIn the past 12 months has the electric, gas, oil, or water [employer] threatened to shut off services in your [...] RecordedIn the past 12 months has the [employer], gas, oil, or water [employer] threatened to shut off services in your home?No04/26/2025Sex and Gender InformationValueDate RecordedSex Assigned at BirthNot on fileLegal MfmIzwy2904/25/2025 9:14 PM EDTGender IdentityNot on file Sexual OrientationNot on file Last Filed Vital Signs Vital SignReadingTime TakenCommentsBlood Yxawlnry835/8211 1:14 PM EST Zvlza602706/30/2025 1:14 PM IEOWeqfeoyrwig31.8 ??C (96.5 ??F)05/18/2025 1:45 PM EDTRespiratory Pgsq8304 1:45 PM EDTOxygen Kfnhywnwki99%05/18/2025 1:45 PM EDTInhaled Oxygen Concentration--Jizhcz21.9 kg (185 lb)06/30/2025 1:14 PM EST Rkazfl113.8 cm (5' 10 )06/30/2025 1:14 PM ESTBody Mass Index26.5406/30/2025 1:14 PM EST Plan of Treatment DateTypeDepartmentCare Team (Latest Contact Info)Dhmsieddxyl24/30/2025 1:30 PM ESTOffice Visit [facility] [address] [place] [address] [phone] Dorothea White APRN-MCKENZIE [address] [place], [place] [phone] 09/01/2025 1:30 PM ESTOffice Visit [facility] [address] [place] [address] Mariangel Singh MD [address] [place] [address] Health MaintenanceDue DateLast SdtnNqeafgznWqrufxyjeuc1965HIV Test 1980Hepatitis C Qnsoyrau10/05/1983Tdap Zchqbqn9407/16/1983Hepatitis A (HAV) Vaccine (optional start 19+ years)1984Pneumococcal Vaccine(s) (50+ yrs) (1 of 2 - PCV)1984CRC Cydffmxio76/05/2010Cologuard (Stool DNA)2010FIT 2010Shingles (RZV) Vaccine (1 of 2)2015COVID-19 Vaccine (2024- season)504/08/2021, 02/28/2021, 02/01/2021Influenza Vaccine (#1) 2025Hepatitis B (HBV) Vaccine (optional start 60+ years)2025 Fpzteggezbq85/22/699408/2RSV vaccine (adult) (1 - 1-dose 75+ series) 2040 Procedures Procedure NamePriorityDate/TimeAssociated DiagnosisCommentsCT ADRENAL W/+W/O YGIRMUTZEaowuwf23/12/2025 3:35 PM EST Lesion of adrenal gland (HCC) CHEMICAL CAUTERIZATION OF GRANULATION VEFMYFJoewfcy21/19/2025 1:36 PM EST [address] in place (HCC) Open wound of anterior abdominal wall with complication, subsequent encounter CHEMICAL CAUTERIZATION OF GRANULATION WRKTNUKfbszkj33/12/2025 1:24 PM EST Colostomy in place (HCC) Open wound of anterior abdominal wall with complication, subsequent encounter CHEMICAL CAUTERIZATION OF GRANULATION JTQSVAVvvzfvt07/05/2025 11:41 AM EST Colostomy in place (HCC) Peristomal dermatitis associated with moisture Open wound of anterior abdominal wall with complication, subsequent encounter CHEMICAL CAUTERIZATION OF GRANULATION TSCBWMSlqxaob68/29/2025 12:12 PM EDT Colostomy in place (HCC) Peristomal dermatitis associated with moisture Open wound of anterior abdominal wall with complication, subsequent encounter CT ABDOMEN/PELVIS W/ HKPRTWYYVqcpvxr18/22/2025 11:30 AM EDT Diverticulitis ISBUVMBVUDAAIQ12/07/2025 12:40 PM EDT ZMNHAQWFIOHCLJ72/07/2025 12:40 PM EDT XR CHEST AP OR PA 1 VIEWPending DC Now05/18/2025 11:25 AM EDT CMHAHYTNHKLlmmnri32/07/2025 3:56 AM EDT FRRHLJXCETbajuyz97/07/2025 3:56 AM EDT COMPLETE BLOOD XTNJQEajoxwv50/07/2025 3:56 AM EDT BASIC METABOLIC VEYQACsilwzr73/07/2025 3:56 AM EDT HC HEPATIC FUNCTION XRUXFRsbjudh05/06/2025 6:22 AM EDT ANDMWBZLTSRGCYgejtbf93/06/2025 6:22 AM EDT BKIVMIYEDIXqlzoce97/06/2025 6:22 AM EDT FRJVBYEOKYxpwpix04/06/2025 6:22 AM EDT BASIC METABOLIC NIKAKMtycxym47/06/2025 6:22 AM EDT COMPLETE BLOOD AGCWJVREB28/06/2025 6:22 AM EDT GLUCOSE, FINGERSTICK-IN ZRAKPXBeaubdk13/05/2025 8:23 PM EDT GLUCOSE, FINGERSTICK-IN BFNSYWLyonxak83/05/2025 4:26 PM EDT GLUCOSE, FINGERSTICK-IN NSOBCGAxfiinm91/05/2025 11:21 AM EDT GLUCOSE, FINGERSTICK-IN MHQKXKTlqnxue28/05/2025 7:18 AM EDT COMPLETE BLOOD UGSFKNCDT95/05/2025 3:23 AM EDT BASIC METABOLIC MAASFWvehysy88/05/2025 3:23 AM EDT ODZZIQXFICtqtsdr52/05/2025 3:23 AM EDT NIUQYQGPHGKfxulfd57/05/2025 3:23 AM EDT GIOYVNHBUYZPFWmpxxqn20/05/2025 3:23 AM EDT HC HEPATIC FUNCTION MJLPYTuarfsm69/05/2025 3:23 AM EDT GLUCOSE, FINGERSTICK-IN IQSMKTQaljvia57/04/2025 8:56 PM EDT GLUCOSE, FINGERSTICK-IN OBCZYIEupibes95/04/2025 4:39 PM EDT GLUCOSE, FINGERSTICK-IN NVEXMNDeymnpr14/04/2025 3:19 PM EDT GLUCOSE, FINGERSTICK-IN VNCUOUWztxusc84/04/2025 11:26 AM EDT GLUCOSE, FINGERSTICK-IN ISXSWELyvmdxo78/04/2025 7:29 AM EDT EOXENTPMABScwwvds80/04/2025 3:35 AM EDT SSWPJZJMDGtzgkib48/04/2025 3:35 AM EDT BASIC METABOLIC VKJROEfqwdme77/04/2025 3:35 AM EDT COMPLETE BLOOD KJNKLMWTC79/04/2025 3:35 AM EDT GLUCOSE, FINGERSTICK-IN UTEBXTUdffhfm77/03/2025 9:20 PM EDT GLUCOSE, FINGERSTICK-IN DWUZSNQychnjz61/03/2025 4:53 PM EDT GLUCOSE, FINGERSTICK-IN MBOTTWKmgeifj90/03/2025 12:15 PM EDT GLUCOSE, FINGERSTICK-IN NKNQCGNxozqqz63/03/2025 8:01 AM EDT LRVYPWZznveuw78/03/2025 6:14 AM EDT BEMOIvafzya19/03/2025 6:14 AM EDT CQSDQOHOYKUptsxnf36/03/2025 1:01 AM EDT TDCQDNVNVUyazhdb15/03/2025 1:01 AM EDT BASIC METABOLIC PHJXIVxlutxf56/03/2025 1:01 AM EDT COMPLETE BLOOD ATOBXDFBI66/03/2025 1:01 AM EDT GLUCOSE, FINGERSTICK-IN WYPQQFAnyqwer22/02/2025 9:12 PM EDT GLUCOSE, FINGERSTICK-IN TNQYXAPipoqbh53/02/2025 4:46 PM EDT GLUCOSE, FINGERSTICK-IN ITPJORByzbgzv35/02/2025 11:51 AM EDT GLUCOSE, FINGERSTICK-IN RYRPNVSvepcuz03/02/2025 7:46 AM EDT ZBTMVQRAKJXljgwck43/02/2025 12:39 AM EDT C-REACTIVE DNBUOYFUcofnpe41/02/2025 12:39 AM EDT COMPLETE BLOOD SFYSLXVAP44/02/2025 12:39 AM EDT BASIC METABOLIC YYSJYImroroc93/02/2025 12:39 AM EDT WRKMLOVBZUjxibbn81/02/2025 12:39 AM EDT HBVXJJIILRDjkssfa03/02/2025 12:39 AM EDT EABYLQMCFUEOTVjhxklh01/02/2025 12:39 AM EDT HC HEPATIC FUNCTION ITMYHGiyfuxv88/02/2025 12:39 AM EDT GLUCOSE, FINGERSTICK-IN HZUUDTExlimhg00/01/2025 8:39 PM EDT GLUCOSE, FINGERSTICK-IN LCUIVEPtbqknf37/01/2025 4:55 PM EDT GLUCOSE, FINGERSTICK-IN RSGPQVQfhnxil93/01/2025 11:17 AM EDT GLUCOSE, FINGERSTICK-IN DBSEQESsfckzh93/01/2025 7:51 AM EDT PDJQPICUJJUhlywqk87/01/2025 12:23 AM EDT EVQHKMWMQEiprprp04/01/2025 12:23 AM EDT BASIC METABOLIC YAEZNQrvokzq75/01/2025 12:23 AM EDT COMPLETE BLOOD QSNEADLED95/01/2025 12:23 AM EDT GLUCOSE, FINGERSTICK-IN BPAYWERgcujem55/30/2025 10:17 PM EDT GLUCOSE, FINGERSTICK-IN ROEJXAWabvuyv46/30/2025 4:40 PM EDT GLUCOSE, FINGERSTICK-IN BVUIBOEkvxvfk13/30/2025 8:10 AM EDT URINALYSIS WITH REFLEX CULTURE BOCVPGQXTDVZmkuyhg42/30/2025 4:26 AM EDT URINALYSIS W/REFLEX AVXGCUYKyjsxgl33/30/2025 4:26 AM EDT HC HEPATIC FUNCTION DQNCIJtwmusx66/30/2025 2:12 AM EDT OJFSAPFMTMCUROqscnzm32/30/2025 2:12 AM EDT KWRDOTDRDQJkkhsaq33/30/2025 2:12 AM EDT FGTDDJBKYHxhnngv19/30/2025 2:12 AM EDT BASIC METABOLIC KNMPNEtuizyl89/30/2025 2:12 AM EDT COMPLETE BLOOD CBQMHFNIM60/30/2025 2:12 AM EDT GLUCOSE, FINGERSTICK-IN FRSLKQQhwloxy46/30/2025 2:06 AM EDT GLUCOSE, FINGERSTICK-IN CMVXXDNxtsjxm80/29/2025 8:23 PM EDT GLUCOSE, FINGERSTICK-IN EDUDNLWyuduvd02/29/2025 2:24 PM EDT GLUCOSE, FINGERSTICK-IN XCANGSDrakqft41/29/2025 10:08 AM EDT HC HEPATIC FUNCTION BMKDFCjnlbub67/29/2025 4:22 AM EDT MKMOXWJHBHAHMLgcajou35/29/2025 4:22 AM EDT JWKXOIXXINIwfkclv22/29/2025 4:22 AM EDT PJOXKUQLDVfdbipj75/29/2025 4:22 AM EDT BASIC METABOLIC EAFUEAgdtnyo05/29/2025 4:22 AM EDT COMPLETE BLOOD CCHJTFMFE77/29/2025 4:22 AM EDT GLUCOSE, FINGERSTICK-IN UYJODPIwfxgcx52/29/2025 2:41 AM EDT XR CHEST AP OR PA 1 GQMHHQLO59/29/2025 1:09 AM EDT GLUCOSE, FINGERSTICK-IN VHUJIDYxikvms16/28/2025 9:03 PM EDT EKG 12 LEAD - RCFVKNLGvhoqgv07/28/2025 8:06 PM EDT GLUCOSE, FINGERSTICK-IN WRLMDLAlzvwgz72/28/2025 1:[address] ABDOMEN/PELVIS W/ YAULJVVEYUTF75/28/2025 11:35 AM EDT EKG 12 LEAD - HSGDOMDQnqaxfl42/28/2025 9:54 AM EDT GLUCOSE, FINGERSTICK-IN RQUACPUaygiyt42/28/2025 6:42 AM EDT HC HEPATIC FUNCTION SVFFACqxxuep81/28/2025 1:09 AM EDT VJCNRHZIWUJQHGghxbzp28/28/2025 1:09 AM EDT OLHFTOPVXPHwczrjp63/28/2025 1:09 AM EDT DQWWFHVBRAjqznzr42/28/2025 1:09 AM EDT BASIC METABOLIC VUTSEQjnzewu53/28/2025 1:09 AM EDT COMPLETE BLOOD LEAQTVAVX82/28/2025 1:09 AM EDT GLUCOSE, FINGERSTICK-IN XBCXPNOmeasos97/28/2025 12:21 AM EDT GLUCOSE, FINGERSTICK-IN ADHURJYebaccg34/27/2025 6:19 PM EDT GLUCOSE, FINGERSTICK-IN OWZMMHAhnxzgh35/27/2025 11:39 AM EDT GLUCOSE, FINGERSTICK-IN EYPENNZbxyxxx84/27/2025 6:14 AM EDT BRHLOUSXXWOarynxc61/27/2025 12:40 AM EDT AGLTJLDZCTprayam78/27/2025 12:40 AM EDT BASIC METABOLIC EENKFUoaqwmq19/27/2025 12:40 AM EDT COMPLETE BLOOD IWUCQAYWD35/27/2025 12:40 AM EDT GLUCOSE, FINGERSTICK-IN HLWDPTRcejwzg30/27/2025 12:27 AM EDT GLUCOSE, FINGERSTICK-IN PKCPNVNrzdolr75/26/2025 5:16 PM EDT GLUCOSE, FINGERSTICK-IN ISBJOSBygvxhw65/26/2025 11:27 AM EDT GLUCOSE, FINGERSTICK-IN EGVOKBQlecjjo47/26/2025 8:01 AM EDT XR ABDOMEN AP 1 GDUELXWG17/26/2025 3:51 AM EDT TUOUFZDXNUOkbvpdy91/26/2025 2:25 AM EDT AIMVYYNYJLeqalwo32/26/2025 2:25 AM EDT BASIC METABOLIC EXUBMYjhvdad51/26/2025 2:25 AM EDT COMPLETE BLOOD UFEDQLPRI17/26/2025 2:10 AM EDT GLUCOSE, FINGERSTICK-IN CDIHAWWcittcy89/25/2025 10:25 PM EDT XR SMALL BOWEL WATER SOLUBLE CHALLENGE SINGLE CFVDRNGFDFAI31/25/2025 5:58 PM EDT GLUCOSE, FINGERSTICK-IN RDJBNKObgbned44/25/2025 4:15 PM EDT GLUCOSE, FINGERSTICK-IN ZRTHMRCfoybnd08/25/2025 11:53 AM EDT GLUCOSE, FINGERSTICK-IN ICZDYUZsrtodo14/25/2025 6:56 AM EDT HC HEPATIC FUNCTION WJZFIScztycj59/25/2025 5:35 AM EDT GNKYPITFFNSNNXlayhse16/25/2025 5:35 AM EDT AAFYEYBFRBBqwqbqb57/25/2025 5:35 AM EDT KHHEWUCGLQbmctbu12/25/2025 5:35 AM EDT BASIC METABOLIC SAGGDLfolbsk00/25/2025 5:35 AM EDT COMPLETE BLOOD GPAVJRPLT59/25/2025 5:35 AM EDT C-REACTIVE CZLXTAITnobcln68/25/2025 5:35 AM EDT BVHWSJYBTGDdhyxrr88/25/2025 5:35 AM EDT GLUCOSE, FINGERSTICK-IN SOAMVXWexptgp12/25/2025 12:54 AM EDT GLUCOSE, FINGERSTICK-IN UOQBEOSdtxsly01/24/2025 6:38 PM EDT GLUCOSE, FINGERSTICK-IN YXDGDPFstogbx66/24/2025 11:54 AM EDT ZRVEKCTBZCOwlkvow78/24/2025 12:59 AM EDT IZMRCSTEEAtoyywf62/24/2025 12:59 AM EDT BASIC METABOLIC RUKNEDoqyopm55/24/2025 12:59 AM EDT COMPLETE BLOOD CSQALQCLX95/24/2025 12:59 AM EDT XR ABDOMEN AP 1 RFTUOBQY90/23/2025 7:20 PM EDT GLUCOSE, FINGERSTICK-IN GNKYDGCtigyky73/23/2025 5:02 PM EDT GLUCOSE, FINGERSTICK-IN LSENLWAovtcgv30/23/2025 11:51 AM EDT XR ABDOMEN AP 1 MKPBZAWK22/23/2025 9:53 AM EDT GLUCOSE, FINGERSTICK-IN ICNEOOEfnlrbm05/23/2025 7:53 AM EDT XEVSZPNHMWSgamxlr20/23/2025 1:28 AM EDT DZDRGOFDFKxswxmv32/23/2025 1:28 AM EDT BASIC METABOLIC OBXQUXkttijd08/23/2025 1:28 AM EDT COMPLETE BLOOD JKPZWVPHH03/23/2025 1:28 AM EDT GLUCOSE, FINGERSTICK-IN TFLQBSIhkulfn08/23/2025 1:26 AM EDT GLUCOSE, FINGERSTICK-IN YZXFCZUwqabim94/22/2025 5:49 PM EDT GLUCOSE, FINGERSTICK-IN UPNZCCTfrjnpw73/22/2025 12:08 PM EDT GLUCOSE, FINGERSTICK-IN AQQNECDfvqedw71/22/2025 5:53 AM EDT HC HEPATIC FUNCTION AYSXNRxhofwt72/22/2025 12:38 AM EDT SKHTREVSHZTJVWkcsznv74/22/2025 12:38 AM EDT TMULNGRFYIHqmrawa85/22/2025 12:38 AM EDT KSRNJFTQORyfpoyp03/22/2025 12:38 AM EDT BASIC METABOLIC FRWYBIdlyelk52/22/2025 12:38 AM EDT COMPLETE BLOOD GTJKWNUSH07/22/2025 12:38 AM EDT GLUCOSE, FINGERSTICK-IN FMTWHLNcxjaeb96/22/2025 12:37 AM EDT GLUCOSE, FINGERSTICK-IN TKPHIORrxdwwb62/21/2025 5:58 PM EDT GLUCOSE, FINGERSTICK-IN JHHOGLHzjmadl92/21/2025 12:02 PM EDT GLUCOSE, FINGERSTICK-IN TGRPBKOnvkxsc13/21/2025 6:02 AM EDT GLUCOSE, FINGERSTICK-IN PASVFAApirfzx76/21/2025 12:26 AM EDT HC HEPATIC FUNCTION GBAQGMfcpsax03/21/2025 12:25 AM EDT CTOKJNMZFOBTOQvdrsck73/21/2025 12:25 AM EDT TIQKNGNNFEVcnqxse02/21/2025 12:25 AM EDT QYYIYTXXHVbjenak81/21/2025 12:25 AM EDT BASIC METABOLIC BMPFHGzyxwfs89/21/2025 12:25 AM EDT COMPLETE BLOOD GOGFXAVKV70/21/2025 12:25 AM EDT GLUCOSE, FINGERSTICK-IN WFRBUIVqrjavl82/20/2025 5:33 PM EDT GLUCOSE, FINGERSTICK-IN HDYGTCZoumaok55/20/2025 11:49 AM EDT GLUCOSE, FINGERSTICK-IN CVJZDNRhvidgf85/20/2025 6:54 AM EDT GLUCOSE, FINGERSTICK-IN NLIYTVXztmumr46/20/2025 1:33 AM EDT HC HEPATIC FUNCTION PFPSDFncimey74/20/2025 12:34 AM EDT UESZLKFOAIRLMFyisfkl24/20/2025 12:34 AM EDT YILNOHGFCECwvqjfk79/20/2025 12:34 AM EDT MNSAFUDXYXigedvl72/20/2025 12:34 AM EDT BASIC METABOLIC JIUTVFbiflwz87/20/2025 12:34 AM EDT COMPLETE BLOOD CBYBSGTJV82/20/2025 12:34 AM EDT SPECIMEN FOR SURGICAL YBTIEkpebuj95/19/2025 8:38 PM EDT Diverticulitis FUNGAL CULTURE & OLU OEWGIyjxleq61/19/2025 8:22 PM EDT Diverticulitis ANAEROBIC CULTURE, MZCRLdkpkdx66/19/2025 8:22 PM EDT Diverticulitis AEROBIC WOUND NHITHIVRurixbd68/19/2025 8:22 PM EDT Diverticulitis INSERTION, STENT3/C - Within 4 Hours04/30/2025 6:08 PM EDT Diverticulitis EXPLORATORY LAPAROTOMY, EXPLORATORY CELIOTOMY W/WO BIOPSY(S) (SEP PROC)3/C - Within 4 Hours04/30/2025 6:08 PM EDT Diverticulitis GLUCOSE, FINGERSTICK-IN HZGJYQIkctyyo70/19/2025 4:55 PM EDT XA PICC INSERT ADULT RN (HILARIA)STAT04/30/2025 3:30 PM EDTXR ABDOMEN AP 1 VIEWSTAT 04/30/2025 2:41 PM EDT BASIC METABOLIC ALLNVOTSZ48/19/2025 1:11 PM EDT TYPE AND WVJTIXGdabfld16/19/2025 1:11 PM EDT PARTIAL THROMBOPLASTIN QZPDWSXB35/19/2025 1:11 PM EDT PROTHROMBIN TIME AND XPQCQIX6304/30/2025 1:[address] ABDOMEN/PELVIS W/ FBCJHCGKFMOO90/19/2025 12:19 PM EDT GLUCOSE, FINGERSTICK-IN AQWUIVNkjxgoy14/19/2025 11:47 AM EDT CLOSTRIDIUM SISIHPPNBMHJG92/19/2025 10:10 AM EDT GLUCOSE, FINGERSTICK-IN KMVHOIJpzpqcc60/19/2025 8:21 AM EDT KHPKFIWBRHXegcrmw47/19/2025 3:31 AM EDT ZQJWHIEIEEbwojwj25/19/2025 3:31 AM EDT BASIC METABOLIC MCATBZkqhnyk24/19/2025 3:31 AM EDT COMPLETE BLOOD DEQCEMTSN23/19/2025 3:31 AM EDT GLUCOSE, FINGERSTICK-IN CAOWJDYeuhmcy73/18/2025 9:42 PM EDT GLUCOSE, FINGERSTICK-IN BUIKTTHaiwhsd74/18/2025 4:24 PM EDT GLUCOSE, FINGERSTICK-IN QSPRLCEbqnfhr64/18/2025 11:18 AM EDT GLUCOSE, FINGERSTICK-IN PWNERWUxuqsre07/18/2025 9:05 AM EDT HC HEPATIC FUNCTION UPKYTSyfjqci50/18/2025 3:28 AM EDT HHIQIQUEHKULBNuytacq25/18/2025 3:28 AM EDT LBXDGUSVQJFaatkfh36/18/2025 3:28 AM EDT GNOJKOFSATfmcpxh94/18/2025 3:28 AM EDT BASIC METABOLIC HVTXTMyqavtd51/18/2025 3:28 AM EDT COMPLETE BLOOD BLNDSIXVA84/18/2025 3:28 AM EDT GLUCOSE, FINGERSTICK-IN GIZMOFWnwsioa71/18/2025 3:25 AM EDT GLUCOSE, FINGERSTICK-IN BNBLIWCipwchp45/17/2025 9:06 PM EDT GLUCOSE, FINGERSTICK-IN MENWCZMzbguap09/17/2025 2:54 PM EDT GLUCOSE, FINGERSTICK-IN INOXTPZwidcwa92/17/2025 8:50 AM EDT FWLDBRTCMJNvzlpqa07/17/2025 3:47 AM EDT EWNEWONAZUvpjbou07/17/2025 3:47 AM EDT BASIC METABOLIC XJFDYCmglgbc20/17/2025 3:47 AM EDT GLUCOSE, FINGERSTICK-IN GZQUFQTpzdjgo58/17/2025 3:09 AM EDT COMPLETE BLOOD THDEAXLUP91/17/2025 2:45 AM EDT GLUCOSE, FINGERSTICK-IN XCEUWVCexfvyf30/16/2025 8:58 PM EDT XR ABDOMEN AP 1 UCHRWBMC68/16/2025 6:51 PM EDT GLUCOSE, FINGERSTICK-IN CUPUUKAeuporq58/16/2025 3:47 PM EDT ANTI FXA-LMW FVWDICXHqrkaiw53/16/2025 12:38 PM EDT CONFIRMATION ABO/WFEciltby59/16/2025 12:38 PM EDT GLUCOSE, FINGERSTICK-IN IEWYPLPtuhjru79/16/2025 8:48 AM EDT COMPLETE BLOOD DPHWWFithwls20/16/2025 3:27 AM EDT YSJNHUAGRXwjrczt51/16/2025 3:27 AM EDT KHWOIAPCBGUfmbznf60/16/2025 3:27 AM EDT BASIC METABOLIC VQDJWTpcma78/16/2025 3:27 AM EDT GLUCOSE, FINGERSTICK-IN RXXSEMNsljhmh70/16/2025 2:32 AM EDT from Last 3 Months Results * CT ADRENAL W/+W/O CONTRAST (07/23/2025 3:35 PM EST)ComponentValueRef RangeTest MethodAnalysis TimePerformed AtPathologist SignatureCTDI VOL0.03 (mGy),0.03 (mGy),9.99 (mGy),8.98 (mGy),9.96 (mGy)RADIOLOGYPHANTOM TYPEIEC Body Dosimetry Phantom,IEC Body Dosimetry Phantom,IEC Body Dosimetry Phantom,IEC Body DosimetryPhantom,IEC Body Dosimetry PhantomRADIOLOGYCT GKB974 (mGy.cm) RADIOLOGYCT SeriesTopogram,Topogram,ADRENAL WO,ADRENAL WITH,15 MIN DELAY [...] Lesion of adrenal gland (HCC) ORDERING PROVIDER: MARIANGEL SINGH TECHNOLOGISTS NOTE: COMPARISON: None TECHNIQUE: Contiguous [...] Lesion of adrenal gland (HCC) ORDERING PROVIDER: MARIANGEL SINGH TECHNOLOGISTS NOTE: COMPARISON: None TECHNIQUE: Contiguous [...] isrecommended.. MACRO: None Authorizing ProviderResult TypeResult StatusAlicia St. [facility] CT SCANFinal Result * CT ABDOMEN/PELVIS W/ CONTRAST (06/02/2025 11:30 AM EDT)ComponentValueRef Range Test MethodAnalysis TimePerformed AtPathologist SignatureCTDI VOL18.25 (mGy) RADIOLOGYPHANTOM [facility] Body Dosimetry PhantomRADIOLOGYCT EHD8766.61 (mGy*cm) RADIOLOGYCT SeriesTopogram,Abd RoutineRADIOLOGYAnatomical RegionLaterality ModalityCT Abdomen, Pelvis and lower extremitiesN/AComputed TomographySpecimen (Source)Anatomical Location / LateralityCollection Method / VolumeCollection TimeReceived Time06/03/2025 9:36 AM EDT Narrative 06/03/2025 10:28 AM EDT EXAMINATION: CT ABDOMEN/PELVIS W/ CONTRASTPRO 06/02/2025 11:30 AM CLINICAL HISTORY: Diverticulitis; S/p open sigmoidectomy and creation of end colostomy ASSOCIATED DIAGNOSIS: Diverticulitis ORDERING PROVIDER: MANJULA WILLIAMSON TECHNOLOGISTS NOTE: COMPARISON: Compared to the prior CTs of the abdomen and pelvis dated 04/30/2025 and 05/09/2025. TECHNIQUE: Contiguous axial images were obtained through the abdomen and pelvis from the level of the diaphragmatic domes through the pubic symphysis following bolus administration of intravenous contrast. MPR sagittal and coronal reconstructions were obtained from the axial data. Before infusion of intravenous contrast, radiology personnel investigated the possibility of an allergic history and of any history of reaction to iodinated contrast material. Contrast Protocol: Omnipaque 350 [>or =100lb] 100 ml [<100 lb] 1 ml per 1 lb. INTRA-PROCEDURE MEDS: iohexol (OMNIPAQUE) 300 MG/ML injection 50 mL Route: Oral iohexol (OMNIPAQUE) 350 MG/ML injection 100 mL Route: Intravenous FINDINGS: Included images of the lower thorax: The trace right pleural effusion has resolved and there is decreased confluent airspace opacity within the anterior basilar aspect of the right lower lobe that isconsistent with atelectasis. There is stable mild patchy linear scarring within the lingula. The remaining visualized lung basesare clear and interstitial markings are normal with no evidence of pleural disease on the left. The visualized cardiac structures are grossly normal. Hepatobiliary: There is a relatively stable ovoid low-density lesion within the posterior medial medial left hepatic lobe (axial image 41) measuring 9 x 10 x 11 mm that may represent a small cyst. The liver measures 191 mm in longitudinal dimension along the midclavicular line and is mildly decreased in density relative to the spleen with no evidence of other focal lesions or abnormal enhancement. The gallbladder is normal with no evidence of gallstones or inflammatory change and the intrahepatic and extrahepatic bile ducts are normal. Pancreas: The pancreas is unchanged and normal in size and shape with no evidence of focal lesions,abnormal enhancement, ductal dilatation or inflammatory change. Spleen: The spleen is unchanged and normal in size, shape and density with no evidence of focal lesions or abnormal enhancement. There is a stable 14 x 14 x 14 mm accessory spleen lateral to the gastric body and superior to the spleen. Adrenal Glands: There is a stable nodular area of decreased density within the central aspect of the left adrenal gland (axial image 59) measuring 13 x 11 x 14 mm that is indeterminate in density on this single phase study. The right adrenal gland is unchanged and normal in size and shape with no evidence of focal lesionsor abnormal enhancement. Kidneys, ureters and bladder: There is a stable partially exophytic low-density lesion arising fromthe posterior lateral upper pole of the left kidney measuring 19 x 19 x 18 mm. The kidneys are normal in size and shape with no evidence of other focal lesions, abnormal enhancement or renal stones. The visualized intrarenal and extrarenal collecting systems and ureters are grossly normal with no evidence of ureterolithiasis. The bladder is moderately collapsed and thickening of the bladder wall cannot be excluded. There is decreased mild perivesicular soft tissue stranding. The bladder is otherwise grossly normal with no evidence of bladder stones. Abdominal and pelvic vasculature: The abdominal aorta is normal in caliber and course with stable mild to moderate patchy atherosclerotic calcification that extends to the bifurcation and into both common iliac arteries with no evidence of flow-limiting stenosis. The celiac, superior mesenteric and renal arteries are normal. There are bilateral accessory renal artery supplying the upper pole the left kidney and the lower pole the right kidney The inferior vena cava and portal venous system are normal. GI tract: The distal small bowel is not opacified with oral contrast and grossly normal. The stomach, duodenum and remaining small bowel are opacified with oral contrast and normal with noevidence of obstruction or inflammatory change. The patient is status post partial sigmoidectomy with a left mid abdominal colostomy and the Isaacs's pouch within the right posterior lateral inferior pelvis is grossly stable. There is mild diverticulosis of the partially collapsed descending colon with no evidence of diverticulitis. There is a mild amount of gas and stool throughout the right colon and transverse colon and the remaining large bowel and partially collapsed rectum are grossly normal. The appendix is not visualized and there are no inflammatory changes adjacent to cecum. Peritoneum and retroperitoneum: The previously noted pelvic fluid collections have resolved with residual bilateral pericolic gutter, posterior lower abdominal and pelvic soft tissue stranding. There is no evidence of free air or free fluid throughout the remainder of the abdomen and pelvis. Lymph Nodes: There is no evidence of adenopathy throughout the abdomen and pelvis. Prostate and seminal vesicles: The prostate gland is enlarged and mildly heterogeneous with internal calcifications, measuring 36 x 45 x 45 mm and the seminal vesicles are normal. Visualized musculoskeletal structures: There is stable mild osteopenia throughout study with stablemild chronic appearing compression deformities of T7, T8 and T9. The visualized vertebral bodies, pedicles and posterior lamina are intact and the remaining visualized vertebral body heights are normal. There is stable moderate to marked degenerative change of the visualized lower thoracic spine with multilevel disc space narrowing, vacuum phenomena, degenerative bony endplate change and facet jointhypertrophy. There is stable moderate disc space narrowing with mild to moderate degenerative bony endplate change and moderate to marked facet joint hypertrophy at L3-4, L4- 5 and L5-S1. There is stable mild to moderate degenerative change throughout the remaining lumbar spine, sacroiliac joints and hip joints. The remainder of the bony pelvis and sacrum are unchanged and otherwise normal. There is a stable moderate to large right fat-containing indirect inguinal hernia. There is stable moderate combined direct and indirect fat-containing left inguinal hernia. There are stable postoperative changes of anterior midline abdominal wall with a stable small fat-containing umbilical hernia. The remaining muscular and soft tissue structures of the body wall, pelvic and hip regions are normal. IMPRESSION: 1. ??There are stable postoperative changes consistent with partial sigmoidectomy, left midabdominal colostomy and right lower pelvic Kourtney pouch formation. 2. ??The previously noted loculated fluid collections within the lower abdomen and pelvis of largely resolved with residual soft tissue stranding that may represent scarring versus edema. 3. ??There is stable mild diverticulosis of the partially collapsed descending colon with no evidence of diverticulitis. 4. ??There is stable mild hepatomegaly and mild fatty change of the liver with the stable low-density lesion within the left hepatic lobe that is consistent with a hepatic cyst. 5. ??There is a stable low-density lesion arising from the central aspect of the left adrenal glandthat may represent an adenoma. However, further evaluation of this lesion is not possible on this single phase study. Dedicated CT or MRI utilizing and adrenal imaging protocol may be helpful to better evaluate this finding. 6. ??There is a stable low-density lesion arising from the upper pole of the left kidney that is consistent with a renal cyst. 7. ??There is no evidence of adenopathy. 8. ??The remaining solid organs are normal and the remaining bowel is grossly normal. 9. ??There are additional findings as described above. MACRO: None Procedure Note Selvin Ramírez MD - 06/03/2025 EXAMINATION: CT ABDOMEN/PELVIS W/ CONTRASTPRO 06/02/2025 11:30 AM CLINICAL HISTORY: Diverticulitis; S/p open sigmoidectomy and creation ofend colostomy ASSOCIATED DIAGNOSIS: Diverticulitis ORDERING PROVIDER: MANJULA WILLIAMSON TECHNOLOGISTS NOTE: COMPARISON: Compared to the prior CTs of the abdomen and pelvis dated04/30/2025 and 05/09/2025. TECHNIQUE: Contiguous axial images were obtained through the abdomen andpelvis from the level of the diaphragmatic domes through the pubicsymphysis following bolus administration of intravenous contrast. MPRsagittal and coronal reconstructions were obtained from the axial data.Before infusion of intravenous contrast, radiology personnel investigatedthe possibility of an allergic history and of any history of reaction toiodinated contrast material. Contrast Protocol: Omnipaque 350 [>or =100lb]100 ml [<100 lb] 1 ml per 1 lb. INTRA-PROCEDURE MEDS: iohexol (OMNIPAQUE) 300 MG/ML injection 50 mL Route: Oral iohexol (OMNIPAQUE) 350 MG/ML injection 100 mL Route: Intravenous FINDINGS: Included images of the lower thorax: The trace right pleural effusion has resolved and there is decreased confluent airspace opacity within theanterior basilar aspect of the right lower lobe that is consistent withatelectasis. There is stable mild patchy linear scarring within the lingula. Theremaining visualized lung bases are clear and interstitial markings arenormal with no evidence of pleural disease on the left. The visualized cardiac structures are grossly normal. Hepatobiliary: There is a relatively stable ovoid low-density lesionwithin the posterior medial medial left hepatic lobe (axial image 41)measuring 9 x 10 x 11 mm that may represent a small cyst. The liver measures 191 mm in longitudinal dimension along themidclavicular line and is mildly decreased in density relative to thespleen with no evidence of other focal lesions or abnormal enhancement. The gallbladder is normal with no evidence of gallstones or inflammatorychange and the intrahepatic and extrahepatic bile ducts are normal. Pancreas: The pancreas is unchanged and normal in size and shape with noevidence of focal lesions, abnormal enhancement, ductal dilatation orinflammatory change. Spleen: The spleen is unchanged and normal in size, shape and density withno evidence of focal lesions or abnormal enhancement. There is a stable 14 x 14 x 14 mm accessory spleen lateral to the gastricbody and superior to the spleen. Adrenal Glands: There is a stable nodular area of decreased density withinthe central aspect of the left adrenal gland (axial image 59) measuring 13x 11 x 14 mm that is indeterminate in density on this single phasestudy. The right adrenal gland is unchanged and normal in size and shape with no evidence of focal lesions or abnormal enhancement. Kidneys, ureters and bladder: There is a stable partially exophyticlow-density lesion arising from the posterior lateral upper pole of theleft kidney measuring 19 x 19 x 18 mm. The kidneys are normal in size and shape with no evidence of other focallesions, abnormal enhancement or renal stones. The visualized intrarenal and extrarenal collecting systems and uretersare grossly normal with no evidence of ureterolithiasis. The bladder is moderately collapsed and thickening of the bladder wallcannot be excluded. There is decreased mild perivesicular soft tissue stranding. The bladderis otherwise grossly normal with no evidence of bladder stones. Abdominal and pelvic vasculature: The abdominal aorta is normal in caliberand course with stable mild to moderate patchy atheroscleroticcalcification that extends to the bifurcation and into both common iliacarteries with no evidence of flow-limiting stenosis. The celiac, superior mesenteric and renal arteries are normal. There are bilateral accessory renal artery supplying the upper pole the left kidneyand the lower pole the right kidney The inferior vena cava and portal venous system are normal. GI tract: The distal small bowel is not opacified with oral contrast andgrossly normal. The stomach, duodenum and remaining small bowel are opacified with oralcontrast and normal with no evidence of obstruction or inflammatorychange. The patient is status post partial sigmoidectomy with a left mid abdominal colostomy and the Isaacs's pouch within the right posterior lateralinferior pelvis is grossly stable. There is mild diverticulosis of the partially collapsed descending colonwith no evidence of diverticulitis. There is a mild amount of gas and stool throughout the right colon andtransverse colon and the remaining large bowel and partially collapsedrectum are grossly normal. The appendix is not visualized and there are no inflammatory changesadjacent to cecum. Peritoneum and retroperitoneum: The previously noted pelvic fluidcollections have resolved with residual bilateral pericolic gutter,posterior lower abdominal and pelvic soft tissue stranding. There is no evidence of free air or free fluid throughout the remainder ofthe abdomen and pelvis. Lymph Nodes: There is no evidence of adenopathy throughout the abdomen and pelvis. Prostate and seminal vesicles: The prostate gland is enlarged and mildly heterogeneous with internal calcifications, measuring 36 x 45 x 45 mm andthe seminal vesicles are normal. Visualized musculoskeletal structures: There is stable mild osteopeniathroughout study with stable mild chronic appearing compressiondeformities of T7, T8 and T9. The visualized vertebral bodies, pedicles and posterior lamina are intactand the remaining visualized vertebral body heights are normal. There is stable moderate to marked degenerative change of the visualizedlower thoracic spine with multilevel disc space narrowing, vacuumphenomena, degenerative bony endplate change and facet jointhypertrophy. There is stable moderate disc space narrowing with mild to moderatedegenerative bony endplate change and moderate to marked facet jointhypertrophy at L3-4, L4-5 and L5-S1. There is stable mild to moderate degenerative change throughout theremaining lumbar spine, sacroiliac joints and hip joints. The remainder ofthe bony pelvis and sacrum are unchanged and otherwise normal. There is a stable moderate to large right fat-containing indirect inguinal hernia. There is stable moderate combined direct and indirect fat-containing left inguinal hernia. There are stable postoperative changes of anterior midline abdominal wallwith a stable small fat-containing umbilical hernia. The remainingmuscular and soft tissue structures of the body wall, pelvic and hipregions are normal. IMPRESSION: 1. There are stable postoperative changes consistent with partialsigmoidectomy, left midabdominal colostomy and right lower pelvic Hartmannpouch formation. 2. The previously noted loculated fluid collections within the lowerabdomen and pelvis of largely resolved with residual soft tissue strandingthat may represent scarring versus edema. 3. There is stable mild diverticulosis of the partially collapseddescending colon with no evidence of diverticulitis. 4. There is stable mild hepatomegaly and mild fatty change of the liverwith the stable low-density lesion within the left hepatic lobe that isconsistent with a hepatic cyst. 5. There is a stable low-density lesion arising from the central aspectof the left adrenal gland that may represent an adenoma. However, furtherevaluation of this lesion is not possible on this single phase study.Dedicated CT or MRI utilizing and adrenal imaging protocol may be helpfulto better evaluate this finding. 6. There is a stable low-density lesion arising from the upper pole ofthe left kidney that is consistent with a renal cyst. 7. There is no evidence of adenopathy. 8. The remaining solid organs are normal and the remaining bowel isgrossly normal. 9. There are additional findings as described above. MACRO: None Authorizing ProviderResult TypeResult StatusJessica Williamson PA-CEC CT SCANFinal Result * (ABNORMAL) URINALYSIS (05/18/2025 12:40 PM EDT)ComponentValueRef RangeTest MethodAnalysis TimePerformed AtPathologist SignatureColorYellowYellow 05/18/2025 1:29 PM [facility] RZNEJZUYBOLgwqjuroznXesjrItrww19/07/2025 1:29 PM [facility] LABORATORYpH6.05.0 - 8.010 1:29 PM [facility] LABORATORYSpec [place]>1.030(H)1.005 - 1.1724005/18/2025 1:29 PM EDT S PATHOLOGY LABORATORYProteinTrace(A)Negative mg/dL05/18/2025 1:29 PM [facility] LABORATORYBloodModerate(A)Gfxnjqkl48/07/2025 1:29 PM [facility] KNXKTARBOMJkzupkcuxJfraycblPxmtxqye64/07/2025 1:29 PM [facility] LABORATORYUrobilinogen0.20.2 - 1.0 mg/dL05/18/2025 1:29 PM [facility] LABORATORYKetonesNegativeNegative mg/dL05/18/2025 1:29 PM [facility] LABORATORYLeuk. YaczlsusFtsvtsofIwhqaqyh51/07/2025 1:29 PM [facility] NACRJNVYLNLrdykuuLyypbrbeVsbrpyib32/07/2025 1:29 PM [facility] LABORATORYGlucoseNegativeNegative mg/dL05/18/2025 1:29 PM [facility] LABORATORYWBC0-20 - 2 /HPF05/18/2025 1:29 PM [facility] LABORATORYRBC3-5 (A)0 - 2 /HPF05/18/2025 1:29 PM [facility] LABORATORYMucous Threads Xzvupdb1905/18/2025 1:29 PM [facility] LABORATORYSpecimen (Source) Anatomical Location / LateralityCollection Method / VolumeCollection Time Received TimeUrineMID-STREAM URINE SPECIMEN / Gwxjacf0105/18/2025 12:40 PM EDT 05/18/2025 12:43 PM EDT Narrative [facility] - 05/18/2025 1:29 PM EDT A negative leukocyte esterase AND negative nitrite test or absence of pyuria (urine WBC count <= 5-10) make a UTI (urinary tract infection) very unlikely in a non-neutropenic adult (<=5% likelihood in many studies). ? A positive leukocyte esterase, nitrite and/or pyuria is a nonspecific ? result. ??This can be seen in conditions other than a UTI e.g. asymptomatic bacteriuria, gynecologic infections, sexually transmitted infections, and noninfectious conditions (positive predictive value for UTI around 50%) ?? Authorizing ProviderResult TypeResult StatusAlicia Francisco MD98 GENERAL LABFinal ResultPerforming OrganizationAddressCity/State/ZIP CodePhone Number [facility] [address] [place] [phone] * XR CHEST AP OR PA 1 VIEW (05/18/2025 11:25 AM EDT)Anatomical RegionLaterality ModalityXR ChestN/AComputed RadiographySpecimen (Source)Anatomical Location / LateralityCollection Method / VolumeCollection TimeReceived Time05/18/2025 12:29 PM EDT Narrative 05/18/2025 12:32 PM EDT EXAMINATION: XR CHEST AP OR PA 1 VIEWPRO 05/18/2025 11:25 AM CLINICAL HISTORY: Colon mass; Fever; follow up ASSOCIATED DIAGNOSIS: Colon mass Fever follow up ORDERING PROVIDER: MARIANGEL SINGH TECHNOLOGISTS NOTE: COMPARISON: XR CHEST AP OR PA 1 VIEW 05/10/2025 1:20 AM FINDINGS: Lines, tubes, and devices: A left-sided PICC line is present with tip overlying the SVC, unchanged. Lungs and pleura: No focal pulmonary consolidation, effusion or pneumothorax. There again is elevation of the right hemidiaphragm with partial right lower lobe collapse. New linear scarring or atelectasis in the left lung. Centrilobular emphysema is noted. Cardiomediastinal silhouette: Normal cardiomediastinal silhouette. Musculoskeletal: Unremarkable. IMPRESSION: There again is elevation of the right hemidiaphragm with partial right lower lobe collapse. New linear scarring or atelectasis in the left lung. No pneumonia identified. Procedure Note Brenden Ramirez MD - 05/18/2025 EXAMINATION: XR CHEST AP OR PA 1 VIEWPRO 05/18/2025 11:25 AM CLINICAL HISTORY: Colon mass; Fever; follow up ASSOCIATED DIAGNOSIS: Colon mass Fever follow up ORDERING PROVIDER: MARIANGEL SINGH TECHNOLOGISTS NOTE: COMPARISON: XR CHEST AP OR PA 1 VIEW 05/10/2025 1:20 AM FINDINGS: Lines, tubes, and devices: A left-sided PICC line is present with tipoverlying the SVC, unchanged. Lungs and pleura: No focal pulmonary consolidation, effusion orpneumothorax. There again is elevation of the right hemidiaphragm withpartial right lower lobe collapse. New linear scarring or atelectasis inthe left lung. Centrilobular emphysema is noted. Cardiomediastinal silhouette: Normal cardiomediastinal silhouette. Musculoskeletal: Unremarkable. IMPRESSION: There again is elevation of the right hemidiaphragm with partial rightlower lobe collapse. New linear scarring or atelectasis in the left lung.No pneumonia identified. Authorizing ProviderResult TypeResult StatusAlicia Francisco MD DIAGNOSTIC X-RAY 2 Final Result * BASIC METABOLIC PANEL (05/18/2025 3:56 AM EDT)ComponentValueRef RangeTest MethodAnalysis TimePerformed AtPathologist JdwrocjbiVzprwyn1887 - 109 mg/dL 05/18/2025 4:34 AM [facility] CSTCJPHNRHJmfptz691330 - 145 mmol/L 05/18/2025 4:34 AM [facility] LABORATORYPotassium4.03.5 - 5.0 mmol/L 05/18/2025 4:34 AM [facility] LABORATORYCarbon Dpwolqb3888 - 31 mmol/L 05/18/2025 4:34 AM [facility] PRDFSAFHWPOsyichxj53198 - 107 mmol/L 05/18/2025 4:34 AM [facility] LABORATORYBlood Urea Uemktwqo000 - 25 mg/dL05/18/2025 4:34 AM [facility] LABORATORYCreatinine0.880.70 - 1.30 mg/dL05/18/2025 4:34 AM [facility] LABORATORYCalcium8.78.6 - 10.3 mg/dL 05/18/2025 4:34 AM [facility] LABORATORYAnion Jny4939 - 4:34 AM [facility] LABORATORYEstimated GFR (CKD-EPI)99>=60 mL/min/1.41hxl82 4:34 AM [facility] LABORATORYComment: 2020 CKD EPI Equation using Creatinine without Race Comment: ??Estimated glomerular filtration rate (eGFR) is calculated without a race coefficient. Values should be interpreted in the context of the patient's full clinical presentation. Reference: 1. Terrance C, Tal M, Arnold SIDHU, et al.. A Unifying Approach for GFR Estimation: Recommendations of the NKF-ASN Task Force on Reassessing the Inclusion of Race in Diagnosing Kidney Disease. AmericanJournal of Kidney Diseases 2021;79(2):268-88.e1. 2. N Engl J Med 2021 Vol. 385 Issue 19 Pages 3628-8124 Specimen (Source)Anatomical Location / LateralityCollection Method / Volume Collection TimeReceived TimeBloodBLOOD SPECIMEN / UnknownVenipuncture / Unknown 05/18/2025 3:56 AM EDT1 4:05 AM EDT Narrative Authorizing ProviderResult TypeResult StatusCarlos Thomas MD98 GENERAL LAB Final ResultPerforming OrganizationAddressCity/State/ZIP CodePhone Number [facility] [address] [place] [phone] * (ABNORMAL) COMPLETE BLOOD COUNT (05/18/2025 3:56 AM EDT)ComponentValueRef RangeTest MethodAnalysis TimePerformed AtPathologist SignatureWBC8.04.5 - 11.5 K/uL05/18/2025 4:12 AM [facility] LABORATORYRBC3.46(L)4.50 - 5.90 M/uL 05/18/2025 4:12 AM [facility] HFXUDPEEOLWkwpfhmgdg17.9(L)13.9 - 16.3 g/dL05/18/2025 4:12 AM [facility] OCUZSKYDUEUjbaclpwgv82.1(L)41.0 - 53.0 %05/18/2025 4:12 AM [facility] ANKIZTDXCMUMI6952 - 100 fL05/18/2025 4:12 AM [facility] XUIDHOPEAFPQZ68.426.0 - 34.0 pg05/18/2025 4:12 AM [facility] QWGZJKFDPWLTFL31.932.0 - 35.9 g/dL05/18/2025 4:12 AM [facility] SRYFIDNPPTJplrsili847(H)150 - 400 K/uL05/18/2025 4:12 AM [facility] LABORATORYRDW-CV14.111.5 - 14.5 %05/18/2025 4:12 AM [facility] LABORATORYMPV8.27.5 - 11.2 fL05/18/2025 4:12 AM [facility] Specimen (Source)Anatomical Location / LateralityCollection Method / Volume Collection TimeReceived TimeBloodBLOOD SPECIMEN / UnknownVenipuncture / Xvtddsm0805/18/2025 3:56 AM EDT1 4:05 AM EDT Narrative Authorizing ProviderResult TypeResult Ammon LI GENERAL LAB Final ResultPerforming OrganizationAddressty/State/ZIP CodePhone Number [facility] [address] [place] [phone] * PHOSPHORUS (05/18/2025 3:56 AM EDT)ComponentValueRef RangeTest MethodAnalysis TimePerformed AtPathologist SignaturePhosphorus, Serum4.82.5 - 5.0 mg/dL 05/18/2025 4:34 AM [facility] PATH[facility] LABORATORYSpecimen (Source)Anatomical Location / LateralityCollection Method / VolumeCollection TimeReceived Time BloodBLOOD SPECIMEN / UnknownVenipuncture / Hkazxjm5205/18/2025 3:56 AM EDT 05/18/2025 4:05 AM EDT Narrative Authorizing ProviderResult TypeResult Ammon LI GENERAL LAB Final ResultPerforming OrganizationAddressty/State/ZIP CodePhone Number [facility] [address] [place] [phone] * MAGNESIUM (05/18/2025 3:56 AM EDT)ComponentValueRef RangeTest MethodAnalysis TimePerformed AtPathologist SignatureMagnesium2.11.9 - 2.7 mg/dL05/18/2025 4:34 AM EDTMHS PATHOLOGY LABORATORYSpecimen (Source)Anatomical Location / LateralityCollection Method / VolumeCollection TimeReceived TimeBloodBLOOD SPECIMEN / UnknownVenipuncture / Ydflmnd0905/18/2025 3:56 AM EDT1 4:05 AM EDT Narrative Authorizing ProviderResult TypeResult Ammon LI GENERAL LAB Final ResultPerforming OrganizationAddEncompass Health [facility] of Yorkty/State/ZIP CodePhone Number [facility] [address] [place] [phone] * (ABNORMAL) HEPATIC FUNCTION PANEL (05/17/2025 6:22 AM EDT)ComponentValueRef RangeTest MethodAnalysis TimePerformed AtPathologist SignatureAlbumin2.9(L)3.5 - 5.7 g/dL05/17/2025 6:54 AM EDTMHS PATHOLOGY LABORATORYBilirubin, Direct0.09 0.03 - 0.18 mg/dL05/17/2025 6:54 AM ED[facility] PATH[facility]Y LABORATORYBilirubin, Total0.30.3 - 1.0 mg/dL05/17/2025 6:54 AM [facility] LABORATORYComment: Note updated reference range.Alkaline Dhvvivqhson8154 - 104 IU/L1 6:54 AM [facility] LABORATORYALT (SGPT)157 - 52 IU/L1 6:54 AM [facility] PATH[facility] LABORATORYAST (SGOT)1313 - 39 IU/L1 6:54 AM [facility] LABORATORYProtein, Total5.9(L)6.1 - 7.9 g/dL05/17/2025 6:54 AM EDT [facility] PATHOLOGY LABORATORYComment:Note updated reference range.Specimen (Source) Anatomical Location / LateralityCollection Method / VolumeCollection Time Received TimeBloodBLOOD SPECIMEN / UnknownVenipuncture / Rkzhrta4205/17/2025 6:22 AM EDT1 6:27 AM EDT Narrative Authorizing ProviderResult TypeResult StatusDick Felipe MD98 GENERAL LABFinal ResultPerforming OrganizationAddressCity/State/ZIP CodePhone Number [facility] [address] [place] [phone] * (ABNORMAL) BASIC METABOLIC PANEL (05/17/2025 6:22 AM EDT)ComponentValueRef RangeTest MethodAnalysis TimePerformed AtPathologist JvbwxemuaFvujlik2355 - 109 mg/dL05/17/2025 6:54 AM [facility] FBZPZWHIJWNybgoi635438 - 145 mmol/L1 6:54 AM [facility] LABORATORYPotassium4.13.5 - 5.0 mmol/L1 6:54 AM [facility] PATH[facility] LABORATORYCarbon Vqnekcm3766 - 31 mmol/L1 6:54 AM [facility] SGXYOWDONPLvytqtku23486 - 107 mmol/L 05/17/2025 6:54 AM [facility] PATH[facility] LABORATORYBlood Urea Rydetdwg252 - 25 mg/dL05/17/2025 6:54 AM [facility] PATHOLOG[facility] LABORATORYCreatinine0.840.70 - 1.30 mg/dL05/17/2025 6:54 AM [facility] PATHOLOG[facility] LABORATORYCalcium8.5(L)8.6 - 10.3 mg/dL05/17/2025 6:54 AM [facility] PATH[facility] LABORATORYAnion Dls5654 - 20 05/17/2025 6:54 AM [facility] PATHOLOG[facility] LABORATORYEstimated GFR (CKD-EPI)100>=60 mL/min/1.22vtd58 6:54 AM [facility] PATHOLOGY LABORATORYComment: 2020 CKD EPI Equation using Creatinine without Race Comment: ??Estimated glomerular filtration rate (eGFR) is calculated without a race coefficient. Values should be interpreted in the context of the patient's full clinical presentation. Reference: 1. Terrance C, Tal M, Arnold DC, et al.. A Unifying Approach for GFR Estimation: Recommendations of the NKF-ASN Task Force on Reassessing the Inclusion of Race in Diagnosing Kidney Disease. AmericanJournal of Kidney Diseases 2021;79(2):268-88.e1. 2. N Engl J Med 1 Vol. 385 Issue 19 Pages 4810-0288 Specimen (Source)Anatomical Location / LateralityCollection Method / Volume Collection TimeReceived TimeBloodBLOOD SPECIMEN / UnknownVenipuncture / Unknown 05/17/2025 6:22 AM EDT1 6:27 AM EDT Narrative Authorizing ProviderResult TypeResult StatusDick Felipe MD98 GENERAL LABFinal ResultPerforming OrganizationAddressCity/State/ZIP CodePhone Number [facility] [address] [place] [phone] * (ABNORMAL) COMPLETE BLOOD COUNT (05/17/2025 6:22 AM EDT)ComponentValueRef RangeTest MethodAnalysis TimePerformed AtPathologist SignatureWBC9.44.5 - 11.5 K/uL05/17/2025 6:32 AM [facility] PATH[facility] LABORATORYRBC3.54(L)4.50 - 5.90 M/uL 05/17/2025 6:32 AM [facility] UNNNPUUUURUhvseeihsu82.2(L)13.9 - 16.3 g/dL05/17/2025 6:32 AM [facility] VFTCPZMUYPUwgeqlpvto76.0(L)41.0 - 53.0 %05/17/2025 6:32 AM [facility] FQTFVLVHFWTDN1886 - 100 fL05/17/2025 6:32 AM [facility] UBAFGVBUXHMEV56.726.0 - 34.0 pg05/17/2025 6:32 AM [facility] EPVUUVSHWULUEY70.032.0 - 35.9 g/dL05/17/2025 6:32 AM [facility] VOQKOZVDOKBjzxmrub574(H)150 - 400 K/uL05/17/2025 6:32 AM [facility] PATH[facility] LABORATORYRDW-CV14.311.5 - 14.5 %05/17/2025 6:32 AM [facility] PATH[facility] LABORATORYMPV7.87.5 - 11.2 fL05/17/2025 6:32 AM [facility] Specimen (Source)Anatomical Location / LateralityCollection Method / Volume Collection TimeReceived TimeBloodBLOOD SPECIMEN / UnknownVenipuncture / Kjikbts7305/17/2025 6:22 AM EDT1 6:27 AM EDT Narrative Authorizing ProviderResult TypeResult StatusDick LI GENERAL LABFinal ResultPerforming OrganizationAddressCity/State/ZIP CodePhone Number [facility] [address] [place] [phone] * TRIGLYCERIDES (05/17/2025 6:22 AM EDT)ComponentValueRef RangeTest Method Analysis TimePerformed AtPathologist CvwxrgkwxTaxiwxrknwyuf837<150 mg/dL 05/17/2025 6:54 AM [facility] PATHOLOG[facility] LABORATORYComment: Normal: < 150 mg/dL Borderline High: 150-199 mg/dL High: 200-499 mg/dL Very High: > = 500 mg/dL Specimen (Source)Anatomical Location / LateralityCollection Method / Volume Collection TimeReceived TimeBloodBLOOD SPECIMEN / UnknownVenipuncture / Unknown 05/17/2025 6:22 AM EDT1 6:27 AM EDT Narrative Authorizing ProviderResult TypeResult StatusDick Felipe MD98 GENERAL LABFinal ResultPerforming OrganizationAddressty/State/ZIP CodePhone Number [facility] [address] [place] [phone] * PHOSPHORUS (05/17/2025 6:22 AM EDT)ComponentValueRef RangeTest MethodAnalysis TimePerformed AtPathologist SignaturePhosphorus, Serum4.82.5 - 5.0 mg/dL 05/17/2025 6:54 AM [facility] PATHOLOGY LABORATORYSpecimen (Source)Anatomical Location / LateralityCollection Method / VolumeCollection TimeReceived Time BloodBLOOD SPECIMEN / UnknownVenipuncture / Gnqrzly3405/17/2025 6:22 AM EDT 05/17/2025 6:27 AM EDT Narrative Authorizing ProviderResult TypeResult StatusDick Felipe MD98 GENERAL LABFinal ResultPerforming OrganizationAddressCity/State/ZIP CodePhone Number [facility] [address] [place] [phone] * MAGNESIUM (05/17/2025 6:22 AM EDT)ComponentValueRef RangeTest MethodAnalysis TimePerformed AtPathologist SignatureMagnesium1.91.9 - 2.7 mg/dL05/17/2025 6:54 AM [facility] PATHOLOGY LABORATORYSpecimen (Source)Anatomical Location / LateralityCollection Method / VolumeCollection TimeReceived TimeBloodBLOOD SPECIMEN / UnknownVenipuncture / Jeywgzb1905/17/2025 6:22 AM EDT1 6:27 AM EDT Narrative Authorizing ProviderResult TypeResult StatusDick Felipe MD98 GENERAL LABFinal ResultPerforming OrganizationAddressty/State/ZIP CodePhone Number [facility] [address] [place] [phone] * GLUCOSE, FINGERSTICK-IN OFFICE (05/16/2025 8:23 PM EDT)ComponentValueRef Range Test MethodAnalysis TimePerformed AtPathologist SignatureGlucose, ZMW7522 - 109 mg/dL05/16/2025 8:29 PM EDTNURSING GLUCOSE PROGRAMComment:Notified SULY MATA MD
Specimen (Source)Anatomical Location / LateralityCollection Method / VolumeCollection TimeReceived TimeBloodBLOOD SPECIMEN / Wrghvdn7005/16/2025 8:23 PM EDT1 8:29 PM EDT Narrative Authorizing ProviderResult TypeResult StatusTo Be AssignedEC BACK OFFICE LABS Final ResultPerforming OrganizationAddressty/State/ZIP CodePhone Number NURSING GLUCOSE PROGRAM [address] [place] [address] * GLUCOSE, FINGERSTICK-IN OFFICE (05/16/2025 4:26 PM EDT)ComponentValueRef Range Test MethodAnalysis TimePerformed AtPathologist SignatureGlucose, YOG02730 - 109 mg/dL05/16/2025 4:41 PM EDTNURSING GLUCOSE PROGRAMComment:Notified RN ADOLFO ROCHE
Specimen (Source)Anatomical Location / LateralityCollection Method / VolumeCollection TimeReceived TimeBloodBLOOD SPECIMEN / Evynshk4905/16/2025 4:26 PM EDT1 4:41 PM EDT Narrative Authorizing ProviderResult TypeResult StatusTo Be AssignedEC BACK OFFICE LABS Final ResultPerforming OrganizationAddressCity/State/ZIP CodePhone Number NURSING GLUCOSE PROGRAM [address] [place] [phone] * GLUCOSE, FINGERSTICK-IN OFFICE (05/16/2025 11:21 AM EDT)ComponentValueRef RangeTest MethodAnalysis TimePerformed AtPathologist SignatureGlucose, EGC138 74 - 109 mg/dL05/16/2025 4:41 PM EDTNURSING GLUCOSE PROGRAMSpecimen (Source) Anatomical Location / LateralityCollection Method / VolumeCollection Time Received TimeBloodBLOOD SPECIMEN / Xiksghp4705/16/2025 11:21 AM EDT1 4:41 PM EDT Narrative Authorizing ProviderResult TypeResult StatusTo Be AssignedEC BACK OFFICE LABS Final ResultPerforming OrganizationAddressty/State/ZIP CodePhone Number NURSING GLUCOSE PROGRAM [address] [place] [phone] * GLUCOSE, FINGERSTICK-IN OFFICE (05/16/2025 7:18 AM EDT)ComponentValueRef Range Test MethodAnalysis TimePerformed AtPathologist SignatureGlucose, VRY4746 - 109 mg/dL05/16/2025 7:24 AM EDTNURSING GLUCOSE PROGRAMSpecimen (Source) Anatomical Location / LateralityCollection Method / VolumeCollection Time Received TimeBloodBLOOD SPECIMEN / Jrhqmnv1705/16/2025 7:18 AM EDT1 7:24 AM EDT Narrative Authorizing ProviderResult TypeResult StatusTo Be AssignedEC BACK OFFICE LABS Final ResultPerforming OrganizationAddressty/State/ZIP CodePhone Number NURSING GLUCOSE PROGRAM [address] [place] [phone] * (ABNORMAL) HEPATIC FUNCTION PANEL (05/16/2025 3:23 AM EDT)ComponentValueRef RangeTest MethodAnalysis TimePerformed AtPathologist SignatureAlbumin2.8(L)3.5 - 5.7 g/dL05/16/2025 3:58 AM [facility] PATHOLOG[facility] LABORATORYBilirubin, Direct0.06 0.03 - 0.18 mg/dL05/16/2025 3:58 AM [facility] PATHOLOGY LABORATORYBilirubin, Total0.2(L)0.3 - 1.0 mg/dL05/16/2025 3:58 AM [facility] Comment:Note updated reference range.Alkaline Urfghrsteep1938 - 104 IU/L 05/16/2025 3:58 AM [facility] PATHOLOG[facility] LABORATORYALT (SGPT)147 - 52 IU/L 05/16/2025 3:58 AM [facility] PATHOLOGY LABORATORYAST (SGOT)1413 - 39 IU/L 05/16/2025 3:58 AM [facility] LABORATORYProtein, Total5.7(L)6.1 - 7.9 g/dL05/16/2025 3:58 AM [facility] PATHOLOGY LABORATORYComment:Note updated reference range.Specimen (Source)Anatomical Location / LateralityCollection Method / VolumeCollection TimeReceived TimeBloodBLOOD SPECIMEN / Unknown Venipuncture / Dgqigao1405/16/2025 3:23 AM EDT1 3:30 AM EDT Narrative Authorizing ProviderResult TypeResult StatusDick Felipe MD98 GENERAL LABFinal ResultPerforming OrganizationAddressCity/State/ZIP CodePhone Number [facility] [address] [place] [phone] * (ABNORMAL) BASIC METABOLIC PANEL (05/16/2025 3:23 AM EDT)ComponentValueRef RangeTest MethodAnalysis TimePerformed AtPathologist AqxgwmpdiLqfwxnn36635 - 109 mg/dL05/16/2025 3:58 AM [facility] UEARWEJDEUUvcrkb171995 - 145 mmol/L1 3:58 AM [facility] PATH[facility] LABORATORYPotassium4.33.5 - 5.0 mmol/L1 3:58 AM [facility] PATHOLOG[facility] LABORATORYCarbon Dgcxbll7450 - 31 mmol/L1 3:58 AM [facility] HKGBTGDZIWWqkdtjpi98565 - 107 mmol/L 05/16/2025 3:58 AM [facility] PATHOLOG[facility] LABORATORYBlood Urea Tfpwvcrh922 - 25 mg/dL05/16/2025 3:58 AM [facility] PATH[facility] LABORATORYCreatinine0.720.70 - 1.30 mg/dL05/16/2025 3:58 AM [facility] PATHOLOG[facility] LABORATORYCalcium8.4(L)8.6 - 10.3 mg/dL05/16/2025 3:58 AM [facility] PATHOLOG[facility] LABORATORYAnion Ije3736 - 20 05/16/2025 3:58 AM [facility] PATHOLOGY LABORATORYEstimated GFR (CKD-EPI)105>=60 mL/min/1.02jpt94 3:58 AM [facility] PATHOLOGY LABORATORYComment: 2020 CKD EPI Equation using Creatinine without Race Comment: ??Estimated glomerular filtration rate (eGFR) is calculated without a race coefficient. Values should be interpreted in the context of the patient's full clinical presentation. Reference: 1. Terrance C, Tal M, Arnold SIDHU, et al.. A Unifying Approach for GFR Estimation: Recommendations of the NKF-ASN Task Force on Reassessing the Inclusion of Race in Diagnosing Kidney Disease. AmericanJournal of Kidney Diseases 2021;79(2):268-88.e1. 2. N Engl J Med 1 Vol. 385 Issue 19 Pages 3328-6961 Specimen (Source)Anatomical Location / LateralityCollection Method / Volume Collection TimeReceived TimeBloodBLOOD SPECIMEN / UnknownVenipuncture / Unknown 05/16/2025 3:23 AM EDT1 3:30 AM EDT Narrative Authorizing ProviderResult TypeResult StatusDick Felipe MD98 GENERAL LABFinal ResultPerforming OrganizationAddressCity/State/ZIP CodePhone Number [facility] [address] [place] [phone] * (ABNORMAL) COMPLETE BLOOD COUNT (05/16/2025 3:23 AM EDT)ComponentValueRef RangeTest MethodAnalysis TimePerformed AtPathologist SignatureWBC8.84.5 - 11.5 K/uL05/16/2025 3:35 AM [facility] PATHOLOGY LABORATORYRBC3.35(L)4.50 - 5.90 M/uL 05/16/2025 3:35 AM [facility] YXFVGEOXKPRoubfqhdsv71.6(L)13.9 - 16.3 g/dL05/16/2025 3:35 AM [facility] QQCCUUQQYWNqyfnyslul23.6(L)41.0 - 53.0 %05/16/2025 3:35 AM [facility] DOHIVPZZQNGJS0914 - 100 fL05/16/2025 3:35 AM [facility] SVFIHMZWBMTWO57.726.0 - 34.0 pg05/16/2025 3:35 AM [facility] LQNCOUATXQJOHV55.732.0 - 35.9 g/dL05/16/2025 3:35 AM [facility] GYGLXYERNSKxuqwgdt940(H)150 - 400 K/uL05/16/2025 3:35 AM [facility] PATHOLOG[facility] LABORATORYRDW-CV13.911.5 - 14.5 %05/16/2025 3:35 AM [facility] PATHOLOG[facility] LABORATORYMPV8.27.5 - 11.2 fL05/16/2025 3:35 AM [facility] Specimen (Source)Anatomical Location / LateralityCollection Method / Volume Collection TimeReceived TimeBloodBLOOD SPECIMEN / UnknownVenipuncture / Dmlenda0705/16/2025 3:23 AM EDT1 3:31 AM EDT Narrative Authorizing ProviderResult TypeResult StatusDick Felipe MD98 GENERAL LABFinal ResultPerforming OrganizationAddressCity/State/ZIP CodePhone Number [facility] [address] [place] [phone] * TRIGLYCERIDES (05/16/2025 3:23 AM EDT)ComponentValueRef RangeTest Method Analysis TimePerformed AtPathologist WcnxzmjgoEwarjzzudmmnz665<150 mg/dL 05/16/2025 3:58 AM [facility] PATHOLOGY LABORATORYComment: Normal: < 150 mg/dL Borderline High: 150-199 mg/dL High: 200-499 mg/dL Very High: > = 500 mg/dL Specimen (Source)Anatomical Location / LateralityCollection Method / Volume Collection TimeReceived TimeBloodBLOOD SPECIMEN / UnknownVenipuncture / Unknown 05/16/2025 3:23 AM EDT1 3:30 AM EDT Narrative Authorizing ProviderResult TypeResult StatusDick Felipe MD98 GENERAL LABFinal ResultPerforming OrganizationAddressty/State/ZIP CodePhone Number [facility] [address] [place] [phone] * PHOSPHORUS (05/16/2025 3:23 AM EDT)ComponentValueRef RangeTest MethodAnalysis TimePerformed AtPathologist SignaturePhosphorus, Serum4.32.5 - 5.0 mg/dL 05/16/2025 3:58 AM [facility] PATHOLOGY LABORATORYSpecimen (Source)Anatomical Location / LateralityCollection Method / VolumeCollection TimeReceived Time BloodBLOOD SPECIMEN / UnknownVenipuncture / Tirecbh8405/16/2025 3:23 AM EDT 05/16/2025 3:30 AM EDT Narrative Authorizing ProviderResult TypeResult StatusDick Felipe MD98 GENERAL LABFinal ResultPerforming OrganizationAddressty/State/ZIP CodePhone Number [facility] [address] [place] [phone] * MAGNESIUM (05/16/2025 3:23 AM EDT)ComponentValueRef RangeTest MethodAnalysis TimePerformed AtPathologist SignatureMagnesium2.01.9 - 2.7 mg/dL05/16/2025 3:58 AM [facility] PATHOLOGY LABORATORYSpecimen (Source)Anatomical Location / LateralityCollection Method / VolumeCollection TimeReceived TimeBloodBLOOD SPECIMEN / UnknownVenipuncture / Pxepsln8505/16/2025 3:23 AM EDT1 3:30 AM EDT Narrative Authorizing ProviderResult TypeResult StatusDick Felipe MD98 GENERAL LABFinal ResultPerforming OrganizationAddEn[facility] Yorkty/State/ZIP CodePhone Number [facility] [address] [place] [phone] * (ABNORMAL) GLUCOSE, FINGERSTICK-IN OFFICE (05/15/2025 8:56 PM EDT)Component ValueRef RangeTest MethodAnalysis TimePerformed AtPathologist Signature Glucose, AZE657(H)74 - 109 mg/dL05/15/2025 9:03 PM EDTNURSING GLUCOSE PROGRAM Comment:Notified RN ADOLFO ROCHE
Specimen (Source)Anatomical Location / LateralityCollection Method / VolumeCollection TimeReceived TimeBloodBLOOD SPECIMEN / Brkbgqr2305/15/2025 8:56 PM EDT1 9:03 PM EDT Narrative Authorizing ProviderResult TypeResult StatusTo Be AssignedEC BACK OFFICE LABS Final ResultPerforming OrganizationAddressty/State/ZIP CodePhone Number NURSING GLUCOSE PROGRAM [address] [place] [phone] * GLUCOSE, FINGERSTICK-IN OFFICE (05/15/2025 4:39 PM EDT)ComponentValueRef Range Test MethodAnalysis TimePerformed AtPathologist SignatureGlucose, [id number] - 109 mg/dL05/15/2025 4:45 PM EDTNURSING GLUCOSE PROGRAMSpecimen (Source) Anatomical Location / LateralityCollection Method / VolumeCollection Time Received TimeBloodBLOOD SPECIMEN / Vmgzlrd7605/15/2025 4:39 PM EDT1 4:45 PM EDT Narrative Authorizing ProviderResult TypeResult StatusTo Be AssignedEC BACK OFFICE LABS Final ResultPerforming OrganizationAddEncompass [facility] of Yorkty/State/ZIP CodePhone Number NURSING GLUCOSE PROGRAM [address] [place] [phone] * GLUCOSE, FINGERSTICK-IN OFFICE (05/15/2025 3:19 PM EDT)ComponentValueRef Range Test MethodAnalysis TimePerformed AtPathologist SignatureGlucose, GVH85527 - 109 mg/dL05/15/2025 3:27 PM EDTNURSING GLUCOSE PROGRAMComment:Notified RN ADOLFO ROCHE
Specimen (Source)Anatomical Location / LateralityCollection Method / VolumeCollection TimeReceived TimeBloodBLOOD SPECIMEN / Pgprcvs9405/15/2025 3:19 PM EDT1 3:27 PM EDT Narrative Authorizing ProviderResult TypeResult StatusTo Be AssignedEC BACK OFFICE LABS Final ResultPerforming OrganizationAddEncompass [facility] Yorkty/State/ZIP CodePhone Number NURSING GLUCOSE PROGRAM [address] [place] [phone] * (ABNORMAL) GLUCOSE, FINGERSTICK-IN OFFICE (05/15/2025 11:26 AM EDT)Component ValueRef RangeTest MethodAnalysis TimePerformed AtPathologist Signature Glucose, HTQ393(H)74 - 109 mg/dL05/15/2025 11:32 AM EDTNURSING GLUCOSE PROGRAM Specimen (Source)Anatomical Location / LateralityCollection Method / Volume Collection TimeReceived TimeBloodBLOOD SPECIMEN / Uibiuxe0305/15/2025 11:26 AM EDT1 11:32 AM EDT Narrative Authorizing ProviderResult TypeResult StatusTo Be AssignedEC BACK OFFICE LABS Final ResultPerforming OrganizationAddressty/State/ZIP CodePhone Number NURSING GLUCOSE PROGRAM [address] [place] [address] * (ABNORMAL) GLUCOSE, FINGERSTICK-IN OFFICE (05/15/2025 7:29 AM EDT)Component ValueRef RangeTest MethodAnalysis TimePerformed AtPathologist Signature Glucose, RFM193(H)74 - 109 mg/dL05/15/2025 7:35 AM EDTNURSING GLUCOSE PROGRAM Specimen (Source)Anatomical Location / LateralityCollection Method / Volume Collection TimeReceived TimeBloodBLOOD SPECIMEN / Fbglocb7405/15/2025 7:29 AM EDT1 7:35 AM EDT Narrative Authorizing ProviderResult TypeResult StatusTo Be AssignedEC BACK OFFICE LABS Final ResultPerforming OrganizationAddressty/State/ZIP CodePhone Number NURSING GLUCOSE PROGRAM [address] [place] [phone] * (ABNORMAL) BASIC METABOLIC PANEL (05/15/2025 3:35 AM EDT)ComponentValueRef RangeTest MethodAnalysis TimePerformed AtPathologist XfjqomgusKlgqwgg20590 - 109 mg/dL05/15/2025 4:06 AM [facility] YISUWBVMMLVvzhbx093499 - 145 mmol/L1 4:06 AM [facility] PATH[facility] LABORATORYPotassium4.03.5 - 5.0 mmol/L1 4:06 AM [facility] PATH[facility] LABORATORYCarbon Hfcnszk8989 - 31 mmol/L1 4:06 AM [facility] KEANZOSCWNLchjzblr38160 - 107 mmol/L 05/15/2025 4:06 AM [facility] PATH[facility] LABORATORYBlood Urea Swpmfwvd686 - 25 mg/dL05/15/2025 4:06 AM [facility] PATH[facility] LABORATORYCreatinine0.700.70 - 1.30 mg/dL05/15/2025 4:06 AM [facility] PATH[facility] LABORATORYCalcium8.1(L)8.6 - 10.3 mg/dL05/15/2025 4:06 AM [facility] PATH[facility] LABORATORYAnion Gap8(L)10 - 20 05/15/2025 4:06 AM [facility] PATH[facility] LABORATORYEstimated GFR (CKD-EPI)106>=60 mL/min/1.34mxl72 4:06 AM [facility] PATHOLOGY LABORATORYComment: 2020 CKD EPI Equation using Creatinine without Race Comment: ??Estimated glomerular filtration rate (eGFR) is calculated without a race coefficient. Values should be interpreted in the context of the patient's full clinical presentation. Reference: 1. Terrance C, Tal M, Arnold DC, et al.. A Unifying Approach for GFR Estimation: Recommendations of the NKF-ASN Task Force on Reassessing the Inclusion of Race in Diagnosing Kidney Disease. AmericanJournal of Kidney Diseases 2021;79(2):268-88.e1. 2. N Engl J Med 1 Vol. 385 Issue 19 Pages 3415-2826 Specimen (Source)Anatomical Location / LateralityCollection Method / Volume Collection TimeReceived TimeBloodBLOOD SPECIMEN / UnknownCentral Line / Unknown 05/15/2025 3:35 AM EDT1 3:41 AM EDT Narrative Authorizing ProviderResult TypeResult StatusDick Felipe MD98 GENERAL LABFinal ResultPerforming OrganizationAddressCity/State/ZIP CodePhone Number [facility] [address] [place] [phone] * (ABNORMAL) COMPLETE BLOOD COUNT (05/15/2025 3:35 AM EDT)ComponentValueRef RangeTest MethodAnalysis TimePerformed AtPathologist SignatureWBC9.04.5 - 11.5 K/uL05/15/2025 3:47 AM [facility] LABORATORYRBC3.29(L)4.50 - 5.90 M/uL 05/15/2025 3:47 AM [facility] JFSUFYSXXYEkpqgemkvk73.8(L)13.9 - 16.3 g/dL05/15/2025 3:47 AM [facility] PVXUGDKBBILlpwjfsots20.9(L)41.0 - 53.0 %05/15/2025 3:47 AM [facility] NESTNWFWVNXFR5811 - 100 fL05/15/2025 3:47 AM [facility] YKIEQIWBJOCVB28.826.0 - 34.0 pg05/15/2025 3:47 AM [facility] TLZGLQZHETJAQG67.1(H)32.0 - 35.9 g/dL05/15/2025 3:47 AM [facility] QWNFTUFABFOjxetdfh522(H)150 - 400 K/uL05/15/2025 3:47 AM [facility] LABORATORYRDW-CV14.211.5 - 14.5 %05/15/2025 3:47 AM [facility] PATH[facility] LABORATORYMPV8.37.5 - 11.2 fL05/15/2025 3:47 AM [facility] Specimen (Source)Anatomical Location / LateralityCollection Method / Volume Collection TimeReceived TimeBloodBLOOD SPECIMEN / UnknownCentral Line / Evosrnf7005/15/2025 3:35 AM EDT1 3:41 AM EDT Narrative Authorizing ProviderResult TypeResult StatusDick LI GENERAL LABFinal ResultPerforming OrganizationAddressCity/State/ZIP CodePhone Number [facility] [address] [place], [place] [phone] * PHOSPHORUS (05/15/2025 3:35 AM EDT)ComponentValueRef RangeTest MethodAnalysis TimePerformed AtPathologist SignaturePhosphorus, Serum4.42.5 - 5.0 mg/dL 05/15/2025 4:06 AM [facility] PATH[facility] LABORATORYSpecimen (Source)Anatomical Location / LateralityCollection Method / VolumeCollection TimeReceived Time BloodBLOOD SPECIMEN / UnknownCentral Line / Ghaizzg2605/15/2025 3:35 AM EDT 05/15/2025 3:41 AM EDT Narrative Authorizing ProviderResult TypeResult StatusDick LI GENERAL LABFinal ResultPerforming OrganizationAddressCity/State/ZIP CodePhone Number [facility] [address] [place] [phone] * MAGNESIUM (05/15/2025 3:35 AM EDT)ComponentValueRef RangeTest MethodAnalysis TimePerformed AtPathologist SignatureMagnesium2.11.9 - 2.7 mg/dL05/15/2025 4:06 AM [facility]LA[facility] PATHOLOGY LABORATORYSpecimen (Source)Anatomical Location / LateralityCollection Method / VolumeCollection TimeReceived TimeBloodBLOOD SPECIMEN / UnknownCentral Line / Zodpufk8605/15/2025 3:35 AM EDT1 3:41 AM EDT Narrative Authorizing ProviderResult TypeResult StatusDick Felipe MD98 GENERAL LABFinal ResultPerforming OrganizationAddressCity/State/ZIP CodePhone Number [facility] [address] [place] [phone] * GLUCOSE, FINGERSTICK-IN OFFICE (05/14/2025 9:20 PM EDT)ComponentValueRef Range Test MethodAnalysis TimePerformed AtPathologist SignatureGlucose, VUH53090 - 109 mg/dL05/14/2025 9:26 PM EDTNURSING GLUCOSE PROGRAMSpecimen (Source) Anatomical Location / LateralityCollection Method / VolumeCollection Time Received TimeBloodBLOOD SPECIMEN / Gfgnikt9905/14/2025 9:20 PM EDT1 9:26 PM EDT Narrative Authorizing ProviderResult TypeResult StatusTo Be AssignedEC BACK OFFICE LABS Final ResultPerforming OrganizationAddressCity/State/ZIP CodePhone Number NURSING GLUCOSE PROGRAM [address] [place] [phone] * GLUCOSE, FINGERSTICK-IN OFFICE (05/14/2025 4:53 PM EDT)ComponentValueRef Range Test MethodAnalysis TimePerformed AtPathologist SignatureGlucose, [id number] - 109 mg/dL05/14/2025 5:04 PM EDTNURSING GLUCOSE PROGRAMComment:Notified RN ADOLFO ROCHE
Specimen (Source)Anatomical Location / LateralityCollection Method / VolumeCollection TimeReceived TimeBloodBLOOD SPECIMEN / Lvrglle6005/14/2025 4:53 PM EDT1 5:04 PM EDT Narrative Authorizing ProviderResult TypeResult StatusTo Be AssignedEC BACK OFFICE LABS Final ResultPerforming OrganizationAddressCity/State/ZIP CodePhone Number NURSING GLUCOSE PROGRAM [address] [place] [phone] * (ABNORMAL) GLUCOSE, FINGERSTICK-IN OFFICE (05/14/2025 12:15 PM EDT)Component ValueRef RangeTest MethodAnalysis TimePerformed AtPathologist Signature Glucose, MWG594(H)74 - 109 mg/dL05/14/2025 12:24 PM EDTNURSING GLUCOSE PROGRAM Specimen (Source)Anatomical Location / LateralityCollection Method / Volume Collection TimeReceived TimeBloodBLOOD SPECIMEN / Tnjxvrv6505/14/2025 12:15 PM EDT1 12:24 PM EDT Narrative Authorizing ProviderResult TypeResult StatusTo Be AssignedEC BACK OFFICE LABS Final ResultPerforming OrganizationAddressty/State/ZIP CodePhone Number NURSING GLUCOSE PROGRAM [address] [place] [phone] * GLUCOSE, FINGERSTICK-IN OFFICE (05/14/2025 8:01 AM EDT)ComponentValueRef Range Test MethodAnalysis TimePerformed AtPathologist SignatureGlucose, AZC90835 - 109 mg/dL05/14/2025 8:11 AM EDTNURSING GLUCOSE PROGRAMSpecimen (Source) Anatomical Location / LateralityCollection Method / VolumeCollection Time Received TimeBloodBLOOD SPECIMEN / Ybxzdaq3905/14/2025 8:01 AM EDT1 8:11 AM EDT Narrative Authorizing ProviderResult TypeResult StatusTo Be AssignedEC BACK OFFICE LABS Final ResultPerforming OrganizationAddEn[facility] Yorkty/State/ZIP CodePhone Number NURSING GLUCOSE PROGRAM [address] [place] [phone] * (ABNORMAL) ZINC (05/14/2025 6:14 AM EDT)ComponentValueRef RangeTest Method Analysis TimePerformed AtPathologist CsjcdwzesOgce43(L)60 - 130 mcg/dL 05/18/2025 1:31 PM EDTQUEST DIAGNOSTICS REFERENCE LABORATORYComment: This test was developed and its analytical performance characteristics have been determined by [employer] [place], [place]. It has not been cleared or approved by the U.S. Food and Drug Administration. This assay has been validated pursuant to the CLIA regulations and is used for clinical purposes. ? Specimen (Source)Anatomical Location / LateralityCollection Method / Volume Collection TimeReceived TimeBloodBLOOD SPECIMEN / UnknownCentral Line / Unknown 05/14/2025 6:14 AM EDT1 6:19 AM EDT Narrative [facility] - 05/18/2025 1:31 PM EDT Resulting Agency Address ?Site ID: AMD ?Name: [employer]/[facility] ?Address: [address] [place] [address] [place], [place] ?Director: Gerry Gómez M.D.,PhD Authorizing ProviderResult TypeResult StatusManjula BAUTISTAC98 GENERAL LABFinal ResultPerforming OrganizationAddressty/State/ZIP CodePhone Number [facility] [address] [place] [address] * COPPER (05/14/2025 6:14 AM EDT)ComponentValueRef RangeTest MethodAnalysis Time Performed AtPathologist EbiamwdosQlzcmd36858 - 175 mcg/dL05/18/2025 1:31 PM EDTQUEST DIAGNOSTICS REFERENCE LABORATORYComment: This test was developed and its analytical performance characteristics have been determined by [employer] [place]. It has not been cleared or approved by the U.S. Food and Drug Administration. This assay has been validated pursuant to the CLIA regulations and is used for clinical purposes. ? Specimen (Source)Anatomical Location / LateralityCollection Method / Volume Collection TimeReceived TimeBloodBLOOD SPECIMEN / UnknownCentral Line / Unknown 05/14/2025 6:14 AM EDT1 6:19 AM EDT Narrative [facility] - 05/18/2025 1:31 PM EDT Resulting Agency Address ?Site ID: AMD ?Name: [employer] ?Address: [address] [place] [address] [place], [place] ?Director: Gerry Gómez M.D.,PhD Authorizing ProviderResult TypeResult Deb BAUTISTAC98 GENERAL LABFinal ResultPerforming OrganizationAdd[facility]/State/ZIP CodePhone Number [facility] [address] [place] [address] * (ABNORMAL) BASIC METABOLIC PANEL (05/14/2025 1:01 AM EDT)ComponentValueRef RangeTest MethodAnalysis TimePerformed AtPathologist GsvzyopqzVvvtxba71452 - 109 mg/dL05/14/2025 1:44 AM [facility] RLATLJASHXAocnpc592504 - 145 mmol/L1 1:44 AM [facility] LABORATORYPotassium4.13.5 - 5.0 mmol/L1 1:44 AM [facility] LABORATORYCarbon Ynqqvqw7648 - 31 mmol/L1 1:44 AM [facility] UTINXZNWMUGodecjoo14164 - 107 mmol/L 05/14/2025 1:44 AM [facility] LABORATORYBlood Urea Spicvuus094 - 25 mg/dL05/14/2025 1:44 AM [facility] LABORATORYCreatinine0.700.70 - 1.30 mg/dL05/14/2025 1:44 AM [facility] LABORATORYCalcium8.1(L)8.6 - 10.3 mg/dL05/14/2025 1:44 AM [facility] LABORATORYAnion Orf4519 - 20 05/14/2025 1:44 AM [facility] LABORATORYEstimated GFR (CKD-EPI)106>=60 mL/min/1.53gzt66 1:44 AM [facility] LABORATORYComment: 2020 CKD EPI Equation using Creatinine without Race Comment: ??Estimated glomerular filtration rate (eGFR) is calculated without a race coefficient. Values should be interpreted in the context of the patient's full clinical presentation. Reference: 1. Terrance C, Tal M, Arnold SIDHU, et al.. A Unifying Approach for GFR Estimation: Recommendations of the NKF-ASN Task Force on Reassessing the Inclusion of Race in Diagnosing Kidney Disease. AmericanJournal of Kidney Diseases 202;79(2):268-88.e1. 2. N Engl J Med 2021 Vol. 385 Issue 19 Pages 5344-6063 Specimen (Source)Anatomical Location / LateralityCollection Method / Volume Collection TimeReceived TimeBloodBLOOD SPECIMEN / UnknownCentral Line / Unknown 05/14/2025 1:01 AM EDT1 1:17 AM EDT Narrative Authorizing ProviderResult TypeResult StatusDick Felipe MD98 GENERAL LABFinal ResultPerforming OrganizationAddressCity/State/ZIP CodePhone Number [facility] [address] [place] [address] * (ABNORMAL) COMPLETE BLOOD COUNT (05/14/2025 1:01 AM EDT)ComponentValueRef RangeTest MethodAnalysis TimePerformed AtPathologist SignatureWBC9.14.5 - 11.5 K/uL05/14/2025 1:21 AM [facility] LABORATORYRBC3.30(L)4.50 - 5.90 M/uL 05/14/2025 1:21 AM [facility] IAGKAYLISPVgwtaecgrv52.3(L)13.9 - 16.3 g/dL05/14/2025 1:21 AM [facility] DIBKXTMQNOVayhpowbxr86.8(L)41.0 - 53.0 %05/14/2025 1:21 AM [facility] NQMLEOUASSXHZ9973 - 100 fL05/14/2025 1:21 AM [facility] VCQBHMLMQZMLD16.326.0 - 34.0 pg05/14/2025 1:21 AM [facility] UKGENELPFOKHWV07.732.0 - 35.9 g/dL05/14/2025 1:21 AM [facility] FTJEFKDMTXVaxkjjkj270(H)150 - 400 K/uL05/14/2025 1:21 AM [facility] LABORATORYRDW-CV13.911.5 - 14.5 %05/14/2025 1:21 AM [facility] LABORATORYMPV8.87.5 - 11.2 fL05/14/2025 1:21 AM [facility] Specimen (Source)Anatomical Location / LateralityCollection Method / Volume Collection TimeReceived TimeBloodBLOOD SPECIMEN / UnknownCentral Line / Xvhmbyh0605/14/2025 1:01 AM EDT1 1:17 AM EDT Narrative Authorizing ProviderResult TypeResult StatusDick Felipe MD98 GENERAL LABFinal ResultPerforming OrganizationAddressCity/State/ZIP CodePhone Number [facility] [address] [place] [address] * PHOSPHORUS (05/14/2025 1:01 AM EDT)ComponentValueRef RangeTest MethodAnalysis TimePerformed AtPathologist SignaturePhosphorus, Serum4.22.5 - 5.0 mg/dL 05/14/2025 1:44 AM [facility] LABORATORYSpecimen (Source)Anatomical Location / LateralityCollection Method / VolumeCollection TimeReceived Time BloodBLOOD SPECIMEN / UnknownCentral Line / Nzvgiuh3005/14/2025 1:01 AM EDT 05/14/2025 1:17 AM EDT Narrative Authorizing ProviderResult TypeResult StatusDick Felipe MD98 GENERAL LABFinal ResultPerforming OrganizationAddressCity/State/ZIP CodePhone Number [facility] [address] [place] [phone] * MAGNESIUM (05/14/2025 1:01 AM EDT)ComponentValueRef RangeTest MethodAnalysis TimePerformed AtPathologist SignatureMagnesium2.11.9 - 2.7 mg/dL05/14/2025 1:44 AM [facility] LABORATORYSpecimen (Source)Anatomical Location / LateralityCollection Method / VolumeCollection TimeReceived TimeBloodBLOOD SPECIMEN / UnknownCentral Line / Gswpwzw1005/14/2025 1:01 AM EDT1 1:17 AM EDT Narrative Authorizing ProviderResult TypeResult StatusDick LI GENERAL LABFinal ResultPerforming OrganizationAddressCity/State/ZIP CodePhone Number [facility] [address] [place] [phone] * (ABNORMAL) GLUCOSE, FINGERSTICK-IN OFFICE (05/13/2025 9:12 PM EDT)Component ValueRef RangeTest MethodAnalysis TimePerformed AtPathologist Signature Glucose, ZPV838(H)74 - 109 mg/dL05/13/2025 9:19 PM EDTNURSING GLUCOSE PROGRAM Specimen (Source)Anatomical Location / LateralityCollection Method / Volume Collection TimeReceived TimeBloodBLOOD SPECIMEN / Hdnpewl7805/13/2025 9:12 PM EDT1 9:19 PM EDT Narrative Authorizing ProviderResult TypeResult StatusTo Be AssignedEC BACK OFFICE LABS Final ResultPerforming OrganizationAddressCity/State/ZIP CodePhone Number NURSING GLUCOSE PROGRAM [address] [place] [phone] * GLUCOSE, FINGERSTICK-IN OFFICE (05/13/2025 4:46 PM EDT)ComponentValueRef Range Test MethodAnalysis TimePerformed AtPathologist SignatureGlucose, CZE99475 - 109 mg/dL05/13/2025 4:53 PM EDTNURSING GLUCOSE PROGRAMSpecimen (Source) Anatomical Location / LateralityCollection Method / VolumeCollection Time Received TimeBloodBLOOD SPECIMEN / Fxhmthb5105/13/2025 4:46 PM EDT1 4:53 PM EDT Narrative Authorizing ProviderResult TypeResult StatusTo Be AssignedEC BACK OFFICE LABS Final ResultPerforming OrganizationAddressty/State/ZIP CodePhone Number NURSING GLUCOSE PROGRAM [address] [place] [phone] * GLUCOSE, FINGERSTICK-IN OFFICE (05/13/2025 11:51 AM EDT)ComponentValueRef RangeTest MethodAnalysis TimePerformed AtPathologist SignatureGlucose, ODF2160 - 109 mg/dL05/13/2025 12:05 PM EDTNURSING GLUCOSE PROGRAMComment: Follow Protocol
Notified RN ADOLFO ROCHE
Specimen (Source)Anatomical Location / LateralityCollection Method / Volume Collection TimeReceived TimeBloodBLOOD SPECIMEN / Covddpj2505/13/2025 11:51 AM EDT 05/13/2025 12:05 PM EDT Narrative Authorizing ProviderResult TypeResult StatusTo Be AssignedEC BACK OFFICE LABS Final ResultPerforming OrganizationAddEncompass [facility] of Yorkty/State/ZIP CodePhone Number NURSING GLUCOSE PROGRAM [address] [place] [phone] * GLUCOSE, FINGERSTICK-IN OFFICE (05/13/2025 7:46 AM EDT)ComponentValueRef Range Test MethodAnalysis TimePerformed AtPathologist SignatureGlucose, SXW15448 - 109 mg/dL05/13/2025 7:53 AM EDTNURSING GLUCOSE PROGRAMSpecimen (Source) Anatomical Location / LateralityCollection Method / VolumeCollection Time Received TimeBloodBLOOD SPECIMEN / Oydhoas5305/13/2025 7:46 AM EDT1 7:53 AM EDT Narrative Authorizing ProviderResult TypeResult StatusTo Be AssignedEC BACK OFFICE LABS Final ResultPerforming OrganizationAddEncompass [facility] of Yorkty/State/ZIP CodePhone Number NURSING GLUCOSE PROGRAM [address] [place] [phone] * (ABNORMAL) HEPATIC FUNCTION PANEL (05/13/2025 12:39 AM EDT)ComponentValueRef RangeTest MethodAnalysis TimePerformed AtPathologist SignatureAlbumin2.5(L)3.5 - 5.7 g/dL05/13/2025 1:17 AM [facility] LABORATORYBilirubin, Direct0.07 0.03 - 0.18 mg/dL05/13/2025 1:17 AM [facility] LABORATORYBilirubin, Total0.2(L)0.3 - 1.0 mg/dL05/13/2025 1:17 AM [facility] Comment:Note updated reference range.Alkaline Eybjejatbvb7576 - 104 IU/L 05/13/2025 1:17 AM [facility] LABORATORYALT (SGPT)177 - 52 IU/L 05/13/2025 1:17 AM [facility] LABORATORYAST (SGOT)1713 - 39 IU/L 05/13/2025 1:17 AM [facility] LABORATORYProtein, Total5.5(L)6.1 - 7.9 g/dL05/13/2025 1:17 AM [facility] PATH[facility] LABORATORYComment:Note updated reference range.Specimen (Source)Anatomical Location / LateralityCollection Method / VolumeCollection TimeReceived TimeBloodBLOOD SPECIMEN / Unknown Venipuncture / Wsgsbzf5305/13/2025 12:39 AM EDT1 12:42 AM EDT Narrative Authorizing ProviderResult TypeResult StatusDick Felipe MD98 GENERAL LABFinal ResultPerforming OrganizationAddressCity/State/ZIP CodePhone Number [facility] [address] [place] [phone] * (ABNORMAL) BASIC METABOLIC PANEL (05/13/2025 12:39 AM EDT)ComponentValueRef RangeTest MethodAnalysis TimePerformed AtPathologist TgxltxnuyGlthryf65154 - 109 mg/dL05/13/2025 1:17 AM [facility] TAYWRKNKHAHoxtpn956689 - 145 mmol/L1 1:17 AM [facility] LABORATORYPotassium3.93.5 - 5.0 mmol/L1 1:17 AM [facility] LABORATORYCarbon Jadvlea2897 - 31 mmol/L1 1:17 AM [facility] KBNTUUGTYRTlykhjeq39293 - 107 mmol/L 05/13/2025 1:17 AM [facility] LABORATORYBlood Urea Jksdfpdr519 - 25 mg/dL05/13/2025 1:17 AM [facility] LABORATORYCreatinine0.62(L)0.70 - 1.30 mg/dL05/13/2025 1:17 AM [facility] LABORATORYCalcium8.0(L)8.6 - 10.3 mg/dL05/13/2025 1:17 AM [facility] LABORATORYAnion Sdm8392 - 20 05/13/2025 1:17 AM [facility] LABORATORYEstimated GFR (CKD-EPI)110>=60 mL/min/1.25bgo95 1:17 AM [facility] PATHOLOG[facility] LABORATORYComment: 2020 CKD EPI Equation using Creatinine without Race Comment: ??Estimated glomerular filtration rate (eGFR) is calculated without a race coefficient. Values should be interpreted in the context of the patient's full clinical presentation. Reference: 1. Terrance C, Tal M, Arnold SIDHU, et al.. A Unifying Approach for GFR Estimation: Recommendations of the NKF-ASN Task Force on Reassessing the Inclusion of Race in Diagnosing Kidney Disease. AmericanJournal of Kidney Diseases 2021;79(2):268-88.e1. 2. N Engl J Med 1 Vol. 385 Issue 19 Pages 0073-3908 Specimen (Source)Anatomical Location / LateralityCollection Method / Volume Collection TimeReceived TimeBloodBLOOD SPECIMEN / UnknownVenipuncture / Unknown 05/13/2025 12:39 AM EDT1 12:42 AM EDT Narrative Authorizing ProviderResult TypeResult StatusDick Felipe MD98 GENERAL LABFinal ResultPerforming OrganizationAddressCity/State/ZIP CodePhone Number [facility] [address] [place] [phone] * (ABNORMAL) COMPLETE BLOOD COUNT (05/13/2025 12:39 AM EDT)ComponentValueRef RangeTest MethodAnalysis TimePerformed AtPathologist SignatureWBC8.84.5 - 11.5 K/uL05/13/2025 12:55 AM [facility] LABORATORYRBC3.06(L)4.50 - 5.90 M/uL 05/13/2025 12:55 AM [facility] LABORATORYHemoglobin9.7(L)13.9 - 16.3 g/dL05/13/2025 12:55 AM [facility] OMUICQDXPNMtmshjsgpu22.8(L)41.0 - 53.0 %05/13/2025 12:55 AM [facility] ZCHCLIQMTSPBV8815 - 100 fL 05/13/2025 12:55 AM [facility] LUXAMVOOYCWNY13.926.0 - 34.0 pg05/13/2025 12:55 AM [facility] YIGRCGSERSHXTG41.132.0 - 35.9 g/dL05/13/2025 12:55 AM [facility] LBRHEOPGLNUbagcypr049(H)150 - 400 K/uL05/13/2025 12:55 AM [facility] LABORATORYRDW-CV13.711.5 - 14.5 %05/13/2025 12:55 AM [facility] LABORATORYMPV8.77.5 - 11.2 fL05/13/2025 12:55 AM [facility] LABORATORYSpecimen (Source)Anatomical Location / LateralityCollection Method / VolumeCollection TimeReceived TimeBloodBLOOD SPECIMEN / UnknownVenipuncture / Havqfvf4705/13/2025 12:39 AM EDT1 12:50 AM EDT Narrative Authorizing ProviderResult TypeResult StatusDick Felipe MD98 GENERAL LABFinal ResultPerforming OrganizationAddressCity/State/ZIP CodePhone Number [facility] [address] [place] [phone] * (ABNORMAL) C-REACTIVE PROTEIN (05/13/2025 12:39 AM EDT)ComponentValueRef Range Test MethodAnalysis TimePerformed AtPathologist SignatureC-Reactive Protein6.3 (H)<0.5 mg/dL05/13/2025 1:17 AM [facility] LABORATORYSpecimen (Source) Anatomical Location / LateralityCollection Method / VolumeCollection Time Received TimeBloodBLOOD SPECIMEN / UnknownVenipuncture / Bhnxfma7005/13/2025 12:39 AM EDT1 12:42 AM EDT Narrative Authorizing ProviderResult TypeResult StatusJessica Williamson PA-C98 GENERAL LABFinal ResultPerforming OrganizationAddressCity/State/ZIP CodePhone Number [facility] [address] [place] [phone] * (ABNORMAL) PREALBUMIN (05/13/2025 12:39 AM EDT)ComponentValueRef RangeTest MethodAnalysis TimePerformed AtPathologist AejtmqiskItglibpjyq87.0(L)17.0 - 34.0 mg/dL05/13/2025 1:33 AM [facility] LABORATORYSpecimen (Source) Anatomical Location / LateralityCollection Method / VolumeCollection Time Received TimeBloodBLOOD SPECIMEN / UnknownVenipuncture / Zijkcmc3005/13/2025 12:39 AM EDT1 12:42 AM EDT Narrative Authorizing ProviderResult TypeResult StatusManjula POOLC98 GENERAL LABFinal ResultPerforming OrganizationAddressCity/State/ZIP CodePhone Number [facility] [address] [place] [phone] * TRIGLYCERIDES (05/13/2025 12:39 AM EDT)ComponentValueRef RangeTest Method Analysis TimePerformed AtPathologist QhurkesnlLjmxfpprumzms667<150 mg/dL 05/13/2025 1:17 AM EDLAUREL [facility] LABORATORYComment: Normal: < 150 mg/dL Borderline High: 150-199 mg/dL High: 200-499 mg/dL Very High: > = 500 mg/dL Specimen (Source)Anatomical Location / LateralityCollection Method / Volume Collection TimeReceived TimeBloodBLOOD SPECIMEN / UnknownVenipuncture / Unknown 05/13/2025 12:39 AM EDT1 12:42 AM EDT Narrative Authorizing ProviderResult TypeResult Cami Felipe MD98 GENERAL LABFinal ResultPerforming OrganizationAddressCity/State/ZIP CodePhone Number [facility] [address] [place] [phone] * PHOSPHORUS (05/13/2025 12:39 AM EDT)ComponentValueRef RangeTest MethodAnalysis TimePerformed AtPathologist SignaturePhosphorus, Serum4.12.5 - 5.0 mg/dL 05/13/2025 1:17 AM EDLAUREL [facility] PATHOLOGY LABORATORYSpecimen (Source)Anatomical Location / LateralityCollection Method / VolumeCollection TimeReceived Time BloodBLOOD SPECIMEN / UnknownVenipuncture / Zlcxqsg1005/13/2025 12:39 AM EDT 05/13/2025 12:42 AM EDT Narrative Authorizing ProviderResult TypeResult StatusDick Felipe MD98 GENERAL LABFinal ResultPerforming OrganizationAddressCity/State/ZIP CodePhone Number [facility] [address] [place] [phone] * MAGNESIUM (05/13/2025 12:39 AM EDT)ComponentValueRef RangeTest MethodAnalysis TimePerformed AtPathologist SignatureMagnesium2.11.9 - 2.7 mg/dL05/13/2025 1:17 AM EDTM PATHOLOGY LABORATORYSpecimen (Source)Anatomical Location / LateralityCollection Method / VolumeCollection TimeReceived TimeBloodBLOOD SPECIMEN / UnknownVenipuncture / Iaewfdu1605/13/2025 12:39 AM EDT1 12:42 AM EDT Narrative Authorizing ProviderResult TypeResult StatusDick Felipe MD98 GENERAL LABFinal ResultPerforming OrganizationAddressCity/State/ZIP CodePhone Number [facility] [address] [place] [address] * GLUCOSE, FINGERSTICK-IN OFFICE (05/12/2025 8:39 PM EDT)ComponentValueRef Range Test MethodAnalysis TimePerformed AtPathologist SignatureGlucose, IRB76288 - 109 mg/dL05/12/2025 8:45 PM EDTNURSING GLUCOSE PROGRAMSpecimen (Source) Anatomical Location / LateralityCollection Method / VolumeCollection Time Received TimeBloodBLOOD SPECIMEN / Fngozaq1005/12/2025 8:39 PM EDT1 8:45 PM EDT Narrative Authorizing ProviderResult TypeResult StatusTo Be AssignedEC BACK OFFICE LABS Final ResultPerforming OrganizationAddressCity/State/ZIP CodePhone Number NURSING GLUCOSE PROGRAM [address] [place] [address] * (ABNORMAL) GLUCOSE, FINGERSTICK-IN OFFICE (05/12/2025 4:55 PM EDT)Component ValueRef RangeTest MethodAnalysis TimePerformed AtPathologist Signature Glucose, BDR038(H)74 - 109 mg/dL05/12/2025 5:02 PM EDTNURSING GLUCOSE PROGRAM Specimen (Source)Anatomical Location / LateralityCollection Method / Volume Collection TimeReceived TimeBloodBLOOD SPECIMEN / Ixqcnpw6105/12/2025 4:55 PM EDT1 5:02 PM EDT Narrative Authorizing ProviderResult TypeResult StatusTo Be AssignedEC BACK OFFICE LABS Final ResultPerforming OrganizationAddressCity/State/ZIP CodePhone Number NURSING GLUCOSE PROGRAM [address] [place] [phone] * (ABNORMAL) GLUCOSE, FINGERSTICK-IN OFFICE (05/12/2025 11:17 AM EDT)Component ValueRef RangeTest MethodAnalysis TimePerformed AtPathologist Signature Glucose, HBR334(H)74 - 109 mg/dL05/12/2025 11:31 AM EDTNURSING GLUCOSE PROGRAM Comment: Follow Protocol
Notified SULY MATA MD
Specimen (Source)Anatomical Location / LateralityCollection Method / Volume Collection TimeReceived TimeBloodBLOOD SPECIMEN / Gdbupfk8005/12/2025 11:17 AM EDT 05/12/2025 11:31 AM EDT Narrative Authorizing ProviderResult TypeResult StatusTo Be AssignedEC BACK OFFICE LABS Final ResultPerforming OrganizationAddressCity/State/ZIP CodePhone Number NURSING GLUCOSE PROGRAM [address] [place] [phone] * GLUCOSE, FINGERSTICK-IN OFFICE (05/12/2025 7:51 AM EDT)ComponentValueRef Range Test MethodAnalysis TimePerformed AtPathologist SignatureGlucose, LWM01386 - 109 mg/dL05/12/2025 7:58 AM EDTNURSING GLUCOSE PROGRAMComment: Follow Protocol
Notified SUYL MATA MD
Specimen (Source)Anatomical Location / LateralityCollection Method / Volume Collection TimeReceived TimeBloodBLOOD SPECIMEN / Gubysme5905/12/2025 7:51 AM EDT 05/12/2025 7:58 AM EDT Narrative Authorizing ProviderResult TypeResult StatusAlikendra MARTÍNEZ BACK OFFICE LABS Final ResultPerforming OrganizationAddressCity/State/ZIP CodePhone Number NURSING GLUCOSE PROGRAM [address] [place] [phone] * (ABNORMAL) BASIC METABOLIC PANEL (05/12/2025 12:23 AM EDT)ComponentValueRef RangeTest MethodAnalysis TimePerformed AtPathologist OpvpzbmctErzpzki68307 - 109 mg/dL05/12/2025 1:12 AM [facility] CYGQGVWITIIodhep928404 - 145 mmol/L1 1:12 AM [facility] LABORATORYPotassium4.13.5 - 5.0 mmol/L1 1:12 AM [facility] LABORATORYCarbon Copocnj3986 - 31 mmol/L1 1:12 AM [facility] FNRROWHZIXUtpbzoyg94302 - 107 mmol/L 05/12/2025 1:12 AM [facility] LABORATORYBlood Urea Subqbior478 - 25 mg/dL05/12/2025 1:12 AM [facility] LABORATORYCreatinine0.69(L)0.70 - 1.30 mg/dL05/12/2025 1:12 AM [facility] LABORATORYCalcium8.0(L)8.6 - 10.3 mg/dL05/12/2025 1:12 AM [facility] LABORATORYAnion Gfj9138 - 20 05/12/2025 1:12 AM [facility] LABORATORYEstimated GFR (CKD-EPI)107>=60 mL/min/1.42chf60 1:12 AM [facility] PATH[facility] LABORATORYComment: 2020 CKD EPI Equation using Creatinine without Race Comment: ??Estimated glomerular filtration rate (eGFR) is calculated without a race coefficient. Values should be interpreted in the context of the patient's full clinical presentation. Reference: 1. Terrance C, Tal M, Arnold SIDHU, et al.. A Unifying Approach for GFR Estimation: Recommendations of the NKF-ASN Task Force on Reassessing the Inclusion of Race in Diagnosing Kidney Disease. AmericanJournal of Kidney Diseases 2021;79(2):268-88.e1. 2. N Engl J Med 2021 Vol. 385 Issue 19 Pages 5894-6625 Specimen (Source)Anatomical Location / LateralityCollection Method / Volume Collection TimeReceived TimeBloodBLOOD SPECIMEN / UnknownCentral Line / Unknown 05/12/2025 12:23 AM EDT1 12:46 AM EDT Narrative Authorizing ProviderResult TypeResult StatusRyan Felipe MD98 GENERAL LABFinal ResultPerforming OrganizationAddressCity/State/ZIP CodePhone Number [facility] PATHOLOGY LABORATORY [address] [place] [phone] * (ABNORMAL) COMPLETE BLOOD COUNT (05/12/2025 12:23 AM EDT)ComponentValueRef RangeTest MethodAnalysis TimePerformed AtPathologist SignatureWBC8.14.5 - 11.5 K/uL05/12/2025 12:51 AM [facility] PATHOLOGY LABORATORYRBC3.05(L)4.50 - 5.90 M/uL 05/12/2025 12:51 AM [facility]OLOG[facility] RQTVJETXIEInksxcftcl87.0(L)13.9 - 16.3 g/dL05/12/2025 12:51 AM [facility] PATHOLOG[facility] WEBLHFIJINYzpkcutvuv89.0(L)41.0 - 53.0 %05/12/2025 12:51 AM [facility] PATH[facility] QFYTIWMELDVKT3726 - 100 fL 05/12/2025 12:51 AM [facility] PATH[facility] HVHMKNSCRALSE44.626.0 - 34.0 pg05/12/2025 12:51 AM [facility] PATHOLOG[facility] SOHRDDUEXUHPUP22.532.0 - 35.9 g/dL05/12/2025 12:51 AM [facility] PATHOLOG[facility] DOTFYKHHKZRlycgzts871(H)150 - 400 K/uL05/12/2025 12:51 AM [facility] PATHOLOGY LABORATORYRDW-CV13.711.5 - 14.5 %05/12/2025 12:51 AM [facility] PATHOLOGY LABORATORYMPV8.67.5 - 11.2 fL05/12/2025 12:51 AM [facility] PATHOLOGY LABORATORYSpecimen (Source)Anatomical Location / LateralityCollection Method / VolumeCollection TimeReceived TimeBloodBLOOD SPECIMEN / UnknownCentral Line / Dvjlmve6305/12/2025 12:23 AM EDT1 12:46 AM EDT Narrative Authorizing ProviderResult TypeResult StatusDick LI GENERAL LABFinal ResultPerforming OrganizationAddressCity/State/ZIP CodePhone Number [facility] PATH[facility] [address] [place] [address] * PHOSPHORUS (05/12/2025 12:23 AM EDT)ComponentValueRef RangeTest MethodAnalysis TimePerformed AtPathologist SignaturePhosphorus, Serum4.42.5 - 5.0 mg/dL 05/12/2025 1:12 AM [facility] PATHOLOGY LABORATORYSpecimen (Source)Anatomical Location / LateralityCollection Method / VolumeCollection TimeReceived Time BloodBLOOD SPECIMEN / UnknownCentral Line / Dolesrk7605/12/2025 12:23 AM EDT 05/12/2025 12:46 AM EDT Narrative Authorizing ProviderResult TypeResult StatusDick Felipe MD98 GENERAL LABFinal ResultPerforming OrganizationAddressCity/State/ZIP CodePhone Number [facility] PATHOLOG[facility] LABORATORY [address] [place] [phone] * MAGNESIUM (05/12/2025 12:23 AM EDT)ComponentValueRef RangeTest MethodAnalysis TimePerformed AtPathologist SignatureMagnesium2.01.9 - 2.7 mg/dL05/12/2025 1:12 AM [facility] PATHOLOGY LABORATORYSpecimen (Source)Anatomical Location / LateralityCollection Method / VolumeCollection TimeReceived TimeBloodBLOOD SPECIMEN / UnknownCentral Line / Fuwodon8205/12/2025 12:23 AM EDT1 12:46 AM EDT Narrative Authorizing ProviderResult TypeResult StatusiDck Felipe MD98 GENERAL LABFinal ResultPerforming OrganizationAddressCity/State/ZIP CodePhone Number [facility] PATH[facility]ORY [address] [place] [phone] * GLUCOSE, FINGERSTICK-IN OFFICE (05/11/2025 10:17 PM EDT)ComponentValueRef RangeTest MethodAnalysis TimePerformed AtPathologist SignatureGlucose, GLQ587 74 - 109 mg/dL05/11/2025 10:24 PM EDTNURSING GLUCOSE PROGRAMSpecimen (Source) Anatomical Location / LateralityCollection Method / VolumeCollection Time Received TimeBloodBLOOD SPECIMEN / Lgcxdlz6105/11/2025 10:17 PM EDT05/11/2025 10:24 PM EDT Narrative Authorizing ProviderResult TypeResult StatusMariangel MARTÍNEZ BACK OFFICE LABS Final ResultPerforming OrganizationAddressCity/State/ZIP CodePhone Number NURSING GLUCOSE PROGRAM [address] [place] [phone] * (ABNORMAL) GLUCOSE, FINGERSTICK-IN OFFICE (05/11/2025 4:40 PM EDT)Component ValueRef RangeTest MethodAnalysis TimePerformed AtPathologist Signature Glucose, DKN586(H)74 - 109 mg/dL05/11/2025 4:55 PM EDTNURSING GLUCOSE PROGRAM Comment:Notified SULY MATA MD
Specimen (Source)Anatomical Location / LateralityCollection Method / VolumeCollection TimeReceived TimeBloodBLOOD SPECIMEN / Hspdcdj8105/11/2025 4:40 PM EDT05/11/2025 4:55 PM EDT Narrative Authorizing ProviderResult TypeResult StatusAlikendra MARTÍNEZ BACK OFFICE LABS Final ResultPerforming OrganizationAddressCity/State/ZIP CodePhone Number NURSING GLUCOSE PROGRAM [address] [place] [phone] * (ABNORMAL) GLUCOSE, FINGERSTICK-IN OFFICE (05/11/2025 8:10 AM EDT)Component ValueRef RangeTest MethodAnalysis TimePerformed AtPathologist Signature Glucose, LJM801(H)74 - 109 mg/dL05/11/2025 8:19 AM EDTNURSING GLUCOSE PROGRAM Comment:Notified SULY MATA MD
Specimen (Source)Anatomical Location / LateralityCollection Method / VolumeCollection TimeReceived TimeBloodBLOOD SPECIMEN / Ljfcgqi6005/11/2025 8:10 AM EDT05/11/2025 8:19 AM EDT Narrative Authorizing ProviderResult TypeResult StatusMariangel MARTÍNEZ BACK OFFICE LABS Final ResultPerforming OrganizationAddressCity/State/ZIP CodePhone Number NURSING GLUCOSE PROGRAM [address] [place] [phone] * (ABNORMAL) URINALYSIS WITH REFLEX CULTURE PERFORMABLE (05/11/2025 4:26 AM EDT) ComponentValueRef RangeTest MethodAnalysis TimePerformed AtPathologist SignatureColorLight TlrsnkLprkdcpph00/30/2025 4:48 AM EDLA[facility] GVMAJTJQANXyggeaaxatChwgjEehho40/30/2025 4:48 AM EDLAUREL [facility] PATHOLOGY LABORATORYpH 6.05.0 - 8.009 4:48 AM [facility] PATHOLOGY LABORATORYSpec Gravity1.016 <=1.0113505/11/2025 4:48 AM [facility] PATHOLOGY LABORATORYProteinNegativeNegative mg/dL05/11/2025 4:48 AM [facility] PATHOLOGY LABORATORYBloodTrace(A)Negative 05/11/2025 4:48 AM [facility] PATHOLOGY LABORATORYBilirubinNegativeNegative 05/11/2025 4:48 AM [facility] PATHOLOGY LABORATORYUrobilinogenNegativeNegative mg/dL05/11/2025 4:48 AM [facility] PATHOLOGY LABORATORYKetonesNegativeNegative mg/dL05/11/2025 4:48 AM [facility] PATHOLOGY LABORATORYLeuk. EsteraseNegative Sdnfyfhy57/30/2025 4:48 AM [facility] PATHOLOGY LABORATORYNitriteNegativeNegative 05/11/2025 4:48 AM [facility] PATHOLOGY LABORATORYGlucoseNegativeNegative mg/dL 05/11/2025 4:48 AM [facility] PATHOLOGY LABORATORYWBC0-20 - 2 /HPF05/11/2025 4:48 AM [facility] PATHOLOGY LABORATORYRBC3-5(A)0 - 2 /HPF05/11/2025 4:48 AM [facility] PATHOLOGY LABORATORYBacteriaFew/HPF05/11/2025 4:48 AM [facility] PATHOLOGY LABORATORYMucous KgrxebkJcddxbf03/30/2025 4:48 AM [facility] PATH[facility] LABORATORY Squamous Epithelial0-20 - 10 /HPF05/11/2025 4:48 AM [facility] PATHOLOGY LABORATORYSpecimen (Source)Anatomical Location / LateralityCollection Method / VolumeCollection TimeReceived TimeUrineMID-STREAM URINE SPECIMEN / Unknown 05/11/2025 4:26 AM EDT05/11/2025 4:40 AM EDT Narrative S PATHOLOGY LABORATORY - 05/11/2025 4:48 AM EDT A negative leukocyte esterase AND negative nitrite test or absence of pyuria (urine WBC count <= 5-10) make a UTI (urinary tract infection) very unlikely in a non-neutropenic adult (<=5% likelihood in many studies). ? A positive leukocyte esterase, nitrite and/or pyuria is a nonspecific ? result. ??This can be seen in conditions other than a UTI e.g. asymptomatic bacteriuria, gynecologic infections, sexually transmitted infections, and noninfectious conditions (positive predictive value for UTI around 50%) ?? Authorizing ProviderResult TypeResult StatusChelaine LI GENERAL LABFinal ResultPerforming OrganizationAddressCity/State/ZIP CodePhone Number [facility] PATHOLOG[facility] LABORATORY [address] [place] [phone] * (ABNORMAL) HEPATIC FUNCTION PANEL (05/11/2025 2:12 AM EDT)ComponentValueRef RangeTest MethodAnalysis TimePerformed AtPathologist SignatureAlbumin2.4(L)3.5 - 5.7 g/dL05/11/2025 2:57 AM [facility] PATHOLOGY LABORATORYBilirubin, Direct0.10 0.03 - 0.18 mg/dL05/11/2025 2:57 AM [facility] PATHOLOGY LABORATORYBilirubin, Total0.30.3 - 1.0 mg/dL05/11/2025 2:57 AM [facility] PATHOLOGY LABORATORYComment: Note updated reference range.Alkaline Xvzoosjlpuc3309 - 104 IU/L05/11/2025 2:57 AM [facility] PATHOLOGY LABORATORYALT (SGPT)167 - 52 IU/L05/11/2025 2:57 AM [facility] PATHOLOGY LABORATORYAST (SGOT)1813 - 39 IU/L05/11/2025 2:57 AM [facility] PATHOLOGY LABORATORYProtein, Total5.2(L)6.1 - 7.9 g/dL05/11/2025 2:57 AM EDT [facility] PATHOLOGY LABORATORYComment:Note updated reference range.Specimen (Source) Anatomical Location / LateralityCollection Method / VolumeCollection Time Received TimeBloodBLOOD SPECIMEN / UnknownVenipuncture / Xrwfjrx7705/11/2025 2:12 AM EDT05/11/2025 2:25 AM EDT Narrative Authorizing ProviderResult TypeResult StatusDick LI GENERAL LABFinal ResultPerforming OrganizationAddressCity/State/ZIP CodePhone Number [facility] PATHOLOGY LABORATORY [address] [place] [phone] * (ABNORMAL) BASIC METABOLIC PANEL (05/11/2025 2:12 AM EDT)ComponentValueRef RangeTest MethodAnalysis TimePerformed AtPathologist EopanaqjbJqtkbdh20597 - 109 mg/dL05/11/2025 2:57 AM [facility] PATHOLOG[facility] XZPPJVXLCLKuctfe302806 - 145 mmol/L05/11/2025 2:57 AM [facility] PATHOLOGY LABORATORYPotassium4.13.5 - 5.0 mmol/L05/11/2025 2:57 AM [facility] PATHOLOGY LABORATORYCarbon Aihzpry6893 - 31 mmol/L05/11/2025 2:57 AM [facility] PATHOLOG[facility] NIPOPYQPHJZoktaynr25387 - 107 mmol/L 05/11/2025 2:57 AM [facility] PATHOLOGY LABORATORYBlood Urea Owdeazjz417 - 25 mg/dL05/11/2025 2:57 AM [facility] PATHOLOGY LABORATORYCreatinine0.720.70 - 1.30 mg/dL05/11/2025 2:57 AM [facility] PATHOLOGY LABORATORYCalcium7.9(L)8.6 - 10.3 mg/dL05/11/2025 2:57 AM [facility] PATHOLOGY LABORATORYAnion Ylo5133 - 20 05/11/2025 2:57 AM [facility] PATHOLOGY LABORATORYEstimated GFR (CKD-EPI)105>=60 mL/min/1.29hkl1505/11/2025 2:57 AM [facility] PATHOLOGY LABORATORYComment: 2020 CKD EPI Equation using Creatinine without Race Comment: ??Estimated glomerular filtration rate (eGFR) is calculated without a race coefficient. Values should be interpreted in the context of the patient's full clinical presentation. Reference: 1. Terrance C, Baeliezer M, Arnold DC, et al.. A Unifying Approach for GFR Estimation: Recommendations of the NKF-ASN Task Force on Reassessing the Inclusion of Race in Diagnosing Kidney Disease. AmericanJournal of Kidney Diseases 202;79(2):268-88.e1. 2. N Engl J Med 2021 Vol. 385 Issue 19 Pages 4741-1923 Specimen (Source)Anatomical Location / LateralityCollection Method / Volume Collection TimeReceived TimeBloodBLOOD SPECIMEN / UnknownVenipuncture / Unknown 05/11/2025 2:12 AM EDT05/11/2025 2:25 AM EDT Narrative Authorizing ProviderResult TypeResult StatusDick LI GENERAL LABFinal ResultPerforming OrganizationAddressCity/State/ZIP CodePhone Number [facility] PATHOLOG[facility] LABORATORY [address] [place] [phone] * (ABNORMAL) COMPLETE BLOOD COUNT (05/11/2025 2:12 AM EDT)ComponentValueRef RangeTest MethodAnalysis TimePerformed AtPathologist SignatureWBC9.94.5 - 11.5 K/uL05/11/2025 2:33 AM [facility] PATHOLOGY LABORATORYRBC3.08(L)4.50 - 5.90 M/uL 05/11/2025 2:33 AM [facility] PATHOLOGY ZJHTLOVSENMpqjfizmru57.0(L)13.9 - 16.3 g/dL05/11/2025 2:33 AM [facility] PATHOLOGY ODCFJGWEHLYijxiczffv92.6(L)41.0 - 53.0 %05/11/2025 2:33 AM [facility] PATHOLOG[facility] SPTNRBMZSDKXS8549 - 100 fL05/11/2025 2:33 AM [facility] PATHOLOG[facility] JGHBRPUJEDEUU05.426.0 - 34.0 pg05/11/2025 2:33 AM [facility] PATHOLOG[facility] HZOXZPFXEWFGCQ35.932.0 - 35.9 g/dL05/11/2025 2:33 AM [facility] PATHOLOG[facility] ORLZRQSWIBFhhgrsgh618(H)150 - 400 K/uL05/11/2025 2:33 AM [facility] PATHOLOGY LABORATORYRDW-CV13.711.5 - 14.5 %05/11/2025 2:33 AM [facility] PATHOLOGY LABORATORYMPV8.47.5 - 11.2 fL05/11/2025 2:33 AM [facility] PATHOLOG[facility] LABORATORY Specimen (Source)Anatomical Location / LateralityCollection Method / Volume Collection TimeReceived TimeBloodBLOOD SPECIMEN / UnknownVenipuncture / Lsqyzjy4405/11/2025 2:12 AM EDT05/11/2025 2:25 AM EDT Narrative Authorizing ProviderResult TypeResult StatusDick LI GENERAL LABFinal ResultPerforming OrganizationAddressCity/State/ZIP CodePhone Number [facility] PATHOLOG[facility] LABORATORY [address] [place] [phone] * TRIGLYCERIDES (05/11/2025 2:12 AM EDT)ComponentValueRef RangeTest Method Analysis TimePerformed AtPathologist QevluhrrpQafaogjtlsnfh568<150 mg/dL 05/11/2025 2:57 AM EDLAUREL [facility] PATHOLOGY LABORATORYComment: Normal: < 150 mg/dL Borderline High: 150-199 mg/dL High: 200-499 mg/dL Very High: > = 500 mg/dL Specimen (Source)Anatomical Location / LateralityCollection Method / Volume Collection TimeReceived TimeBloodBLOOD SPECIMEN / UnknownVenipuncture / Unknown 05/11/2025 2:12 AM EDT05/11/2025 2:25 AM EDT Narrative Authorizing ProviderResult TypeResult StatusDick LI GENERAL LABFinal ResultPerforming OrganizationAddEncompass [facility] Yorkty/[facility]/ZIP CodePhone Number [facility] PATHOLOG[facility] LABORATORY [address] [place] [phone] * PHOSPHORUS (05/11/2025 2:12 AM EDT)ComponentValueRef RangeTest MethodAnalysis TimePerformed AtPathologist SignaturePhosphorus, Serum4.32.5 - 5.0 mg/dL 05/11/2025 2:57 AM EDTMHS PATHOLOGY LABORATORYSpecimen (Source)Anatomical Location / LateralityCollection Method / VolumeCollection TimeReceived Time BloodBLOOD SPECIMEN / UnknownVenipuncture / Dyuqxco1005/11/2025 2:12 AM EDT 05/11/2025 2:25 AM EDT Narrative Authorizing ProviderResult TypeResult StatusDick LI GENERAL LABFinal ResultPerforming OrganizationAddEncompass [facility] of Yorkty/State/ZIP CodePhone Number [facility] PATH[facility] LABORATORY [address] [place] [phone] * MAGNESIUM (05/11/2025 2:12 AM EDT)ComponentValueRef RangeTest MethodAnalysis TimePerformed AtPathologist SignatureMagnesium2.01.9 - 2.7 mg/dL05/11/2025 2:57 AM EDLAUREL [facility] PATHOLOGY LABORATORYSpecimen (Source)Anatomical Location / LateralityCollection Method / VolumeCollection TimeReceived TimeBloodBLOOD SPECIMEN / UnknownVenipuncture / Cgahtnx3205/11/2025 2:12 AM EDT05/11/2025 2:25 AM EDT Narrative Authorizing ProviderResult TypeResult Cami Felipe MD98 GENERAL LABFinal ResultPerforming OrganizationAddressCity/State/ZIP CodePhone Number S PATHOLOGY LABORATORY [address] [place] [phone] * (ABNORMAL) GLUCOSE, FINGERSTICK-IN OFFICE (05/11/2025 2:06 AM EDT)Component ValueRef RangeTest MethodAnalysis TimePerformed AtPathologist Signature Glucose, HLV704(H)74 - 109 mg/dL05/11/2025 2:12 AM EDTNURSING GLUCOSE PROGRAM Specimen (Source)Anatomical Location / LateralityCollection Method / Volume Collection TimeReceived TimeBloodBLOOD SPECIMEN / Ovxcczh6305/11/2025 2:06 AM EDT05/11/2025 2:12 AM EDT Narrative Authorizing ProviderResult TypeResult StatusMariangel MARÍTNEZ BACK OFFICE LABS Final ResultPerforming OrganizationAddressCity/State/ZIP CodePhone Number NURSING GLUCOSE PROGRAM [address] [place] [phone] * GLUCOSE, FINGERSTICK-IN OFFICE (05/10/2025 8:23 PM EDT)ComponentValueRef Range Test MethodAnalysis TimePerformed AtPathologist SignatureGlucose, JAI61498 - 109 mg/dL05/10/2025 8:29 PM EDTNURSING GLUCOSE PROGRAMSpecimen (Source) Anatomical Location / LateralityCollection Method / VolumeCollection Time Received TimeBloodBLOOD SPECIMEN / Lyefpnf3405/10/2025 8:23 PM EDT05/10/2025 8:29 PM EDT Narrative Authorizing ProviderResult TypeResult StatusMariangel MARTÍNEZ BACK OFFICE LABS Final ResultPerforming OrganizationAddressty/State/ZIP CodePhone Number NURSING GLUCOSE PROGRAM [address] [place] [address] * GLUCOSE, FINGERSTICK-IN OFFICE (05/10/2025 2:24 PM EDT)ComponentValueRef Range Test MethodAnalysis TimePerformed AtPathologist SignatureGlucose, ZJC52984 - 109 mg/dL05/10/2025 2:30 PM EDTNURSING GLUCOSE PROGRAMSpecimen (Source) Anatomical Location / LateralityCollection Method / VolumeCollection Time Received TimeBloodBLOOD SPECIMEN / Folnyrz1505/10/2025 2:24 PM EDT05/10/2025 2:30 PM EDT Narrative Authorizing ProviderResult TypeResult StatusAlikendra MARTÍNEZ BACK OFFICE LABS Final ResultPerforming OrganizationAddressCity/State/ZIP CodePhone Number NURSING GLUCOSE PROGRAM [address] [place] [phone] * (ABNORMAL) GLUCOSE, FINGERSTICK-IN OFFICE (05/10/2025 10:08 AM EDT)Component ValueRef RangeTest MethodAnalysis TimePerformed AtPathologist Signature Glucose, AXN950(H)74 - 109 mg/dL05/10/2025 10:16 AM EDTNURSING GLUCOSE PROGRAM Specimen (Source)Anatomical Location / LateralityCollection Method / Volume Collection TimeReceived TimeBloodBLOOD SPECIMEN / Zkamlcw5605/10/2025 10:08 AM EDT05/10/2025 10:16 AM EDT Narrative Authorizing ProviderResult TypeResult StatusAlikendra MARTÍNEZ BACK OFFICE LABS Final ResultPerforming OrganizationAddressCity/State/ZIP CodePhone Number NURSING GLUCOSE PROGRAM [address] [place] [phone] * (ABNORMAL) HEPATIC FUNCTION PANEL (05/10/2025 4:22 AM EDT)ComponentValueRef RangeTest MethodAnalysis TimePerformed AtPathologist SignatureAlbumin2.5(L)3.5 - 5.7 g/dL05/10/2025 5:14 AM [facility] PATHOLOGY LABORATORYBilirubin, Direct0.08 0.03 - 0.18 mg/dL05/10/2025 5:14 AM [facility] PATHOLOGY LABORATORYBilirubin, Total0.30.3 - 1.0 mg/dL05/10/2025 5:14 AM [facility] PATHOLOGY LABORATORYComment: Note updated reference range.Alkaline Iarsitevvbr3539 - 104 IU/L05/10/2025 5:14 AM [facility] PATHOLOGY LABORATORYALT (SGPT)167 - 52 IU/L05/10/2025 5:14 AM [facility] PATHOLOGY LABORATORYAST (SGOT)2213 - 39 IU/L05/10/2025 5:14 AM [facility] PATHOLOGY LABORATORYProtein, Total5.4(L)6.1 - 7.9 g/dL05/10/2025 5:14 AM EDT [facility] PATHOLOGY LABORATORYComment:Note updated reference range.Specimen (Source) Anatomical Location / LateralityCollection Method / VolumeCollection Time Received TimeBloodBLOOD SPECIMEN / UnknownVenipuncture / Fdiiire8005/10/2025 4:22 AM EDT05/10/2025 4:43 AM EDT Narrative Authorizing ProviderResult TypeResult StatusDick Felipe MD98 GENERAL LABFinal ResultPerforming OrganizationAddressCity/State/ZIP CodePhone Number [facility] PATHOLOG[facility] LABORATORY [address] [place] [phone] * (ABNORMAL) BASIC METABOLIC PANEL (05/10/2025 4:22 AM EDT)ComponentValueRef RangeTest MethodAnalysis TimePerformed AtPathologist IxmqfwmwcBhyeyab7121 - 109 mg/dL05/10/2025 5:14 AM [facility] PATHOLOGY WXLIQTBYDRQnmtaq782546 - 145 mmol/L05/10/2025 5:14 AM [facility] PATHOLOGY LABORATORYPotassium4.23.5 - 5.0 mmol/L05/10/2025 5:14 AM [facility] PATHOLOGY LABORATORYCarbon Kwreaqb5931 - 31 mmol/L05/10/2025 5:14 AM [facility] PATHOLOGY JOTKWGPTYUPgtzbinh82244 - 107 mmol/L 05/10/2025 5:14 AM [facility] PATHOLOGY LABORATORYBlood Urea Tcobowex667 - 25 mg/dL05/10/2025 5:14 AM [facility] PATHOLOGY LABORATORYCreatinine0.51(L)0.70 - 1.30 mg/dL05/10/2025 5:14 AM [facility] PATHOLOGY LABORATORYCalcium7.9(L)8.6 - 10.3 mg/dL05/10/2025 5:14 AM [facility] PATHOLOGY LABORATORYAnion Yld7002 - 20 05/10/2025 5:14 AM [facility] PATHOLOGY LABORATORYEstimated GFR (CKD-EPI)117>=60 mL/min/1.23ayu6305/10/2025 5:14 AM [facility] PATHOLOGY LABORATORYComment: 2020 CKD EPI Equation using Creatinine without Race Comment: ??Estimated glomerular filtration rate (eGFR) is calculated without a race coefficient. Values should be interpreted in the context of the patient's full clinical presentation. Reference: 1. Terrance C, Tal M, Arnold SIDHU, et al.. A Unifying Approach for GFR Estimation: Recommendations of the NKF-ASN Task Force on Reassessing the Inclusion of Race in Diagnosing Kidney Disease. AmericanJournal of Kidney Diseases 2021;79(2):268-88.e1. 2. N Engl J Med 1 Vol. 385 Issue 19 Pages 9559-3270 Specimen (Source)Anatomical Location / LateralityCollection Method / Volume Collection TimeReceived TimeBloodBLOOD SPECIMEN / UnknownVenipuncture / Unknown 05/10/2025 4:22 AM EDT05/10/2025 4:43 AM EDT Narrative Authorizing ProviderResult TypeResult StatusDick Felipe MD98 GENERAL LABFinal ResultPerforming OrganizationAddressCity/State/ZIP CodePhone Number [facility] PATHOLOG[facility] LABORATORY [address] [place] [phone] * (ABNORMAL) COMPLETE BLOOD COUNT (05/10/2025 4:22 AM EDT)ComponentValueRef RangeTest MethodAnalysis TimePerformed AtPathologist JbxbdxzreYWD58.34.5 - 11.5 K/uL05/10/2025 4:50 AM [facility] PATHOLOGY LABORATORYRBC3.29(L)4.50 - 5.90 M/uL05/10/2025 4:50 AM [facility] PATHOLOG[facility] OZXVISEFWIWxqhjlopva70.5(L)13.9 - 16.3 g/dL05/10/2025 4:50 AM [facility] PATHOLOG[facility] WQDGVPYGQLZhrrwurafe42.4(L)41.0 - 53.0 %05/10/2025 4:50 AM [facility] PATHOLOG[facility] BJZJZGCORTWIS1231 - 100 fL05/10/2025 4:50 AM [facility] PATHOLOG[facility] EEJXFMUSWAWYP02.826.0 - 34.0 pg05/10/2025 4:50 AM [facility] PATH[facility] RRAQSLMLPNGGZH08.432.0 - 35.9 g/dL05/10/2025 4:50 AM [facility] PATHOLOG[facility] BVRNXINSGHCejyvgbv873(H)150 - 400 K/uL05/10/2025 4:50 AM [facility] PATHOLOGY LABORATORYRDW-CV13.711.5 - 14.5 %05/10/2025 4:50 AM [facility] PATHOLOGY LABORATORYMPV8.77.5 - 11.2 fL05/10/2025 4:50 AM [facility] Specimen (Source)Anatomical Location / LateralityCollection Method / Volume Collection TimeReceived TimeBloodBLOOD SPECIMEN / UnknownVenipuncture / Ikelqhh7205/10/2025 4:22 AM EDT05/10/2025 4:43 AM EDT Narrative Authorizing ProviderResult TypeResult StatusDick LI GENERAL LABFinal ResultPerforming OrganizationAddressCity/State/ZIP CodePhone Number [facility] PATHOLOG[facility] LABORATORY [address] [place] [phone] * TRIGLYCERIDES (05/10/2025 4:22 AM EDT)ComponentValueRef RangeTest Method Analysis TimePerformed AtPathologist QnzshqrvkXxxubpvtrnaco256<150 mg/dL 05/10/2025 5:14 AM EDLAUREL [facility] PATHOLOGY LABORATORYComment: Normal: < 150 mg/dL Borderline High: 150-199 mg/dL High: 200-499 mg/dL Very High: > = 500 mg/dL Specimen (Source)Anatomical Location / LateralityCollection Method / Volume Collection TimeReceived TimeBloodBLOOD SPECIMEN / UnknownVenipuncture / Unknown 05/10/2025 4:22 AM EDT05/10/2025 4:43 AM EDT Narrative Authorizing ProviderResult TypeResult StatusDick LI GENERAL LABFinal ResultPerforming OrganizationAddEncompass Health [facility] of Yorkty/State/ZIP CodePhone Number [facility] PATHOLOGY LABORATORY [address] [place] [phone] * PHOSPHORUS (05/10/2025 4:22 AM EDT)ComponentValueRef RangeTest MethodAnalysis TimePerformed AtPathologist SignaturePhosphorus, Serum4.12.5 - 5.0 mg/dL 05/10/2025 5:14 AM EDLAUREL [facility] PATHOLOGY LABORATORYSpecimen (Source)Anatomical Location / LateralityCollection Method / VolumeCollection TimeReceived Time BloodBLOOD SPECIMEN / UnknownVenipuncture / Ikrqynf5105/10/2025 4:22 AM EDT 05/10/2025 4:43 AM EDT Narrative Authorizing ProviderResult TypeResult StatusDick LI GENERAL LABFinal ResultPerforming OrganizationAddressty/State/ZIP CodePhone Number [facility] PATHOLOG[facility] LABORATORY [address] [place] [phone] * MAGNESIUM (05/10/2025 4:22 AM EDT)ComponentValueRef RangeTest MethodAnalysis TimePerformed AtPathologist SignatureMagnesium2.11.9 - 2.7 mg/dL05/10/2025 5:14 AM EDLAUREL [facility] PATHOLOGY LABORATORYSpecimen (Source)Anatomical Location / LateralityCollection Method / VolumeCollection TimeReceived TimeBloodBLOOD SPECIMEN / UnknownVenipuncture / Bsecizy1005/10/2025 4:22 AM EDT05/10/2025 4:43 AM EDT Narrative Authorizing ProviderResult TypeResult StatusDick Felipe MD98 GENERAL LABFinal ResultPerforming OrganizationAddressCity/State/ZIP CodePhone Number S [facility] [address] [place] [address] * GLUCOSE, FINGERSTICK-IN OFFICE (05/10/2025 2:41 AM EDT)ComponentValueRef Range Test MethodAnalysis TimePerformed AtPathologist SignatureGlucose, [id number] - 109 mg/dL05/10/2025 2:47 AM EDTNURSING GLUCOSE PROGRAMSpecimen (Source) Anatomical Location / LateralityCollection Method / VolumeCollection Time Received TimeBloodBLOOD SPECIMEN / Oirxusl6805/10/2025 2:41 AM EDT05/10/2025 2:47 AM EDT Narrative Authorizing ProviderResult TypeResult StatusMariangel Singh M[facility] BACK OFFICE LABS Final ResultPerforming OrganizationAddressCity/State/ZIP CodePhone Number NURSING GLUCOSE PROGRAM [address] [place] [address] * XR CHEST AP OR PA 1 VIEW (05/10/2025 1:09 AM EDT)Anatomical RegionLaterality ModalityXR ChestN/AComputed RadiographySpecimen (Source)Anatomical Location / LateralityCollection Method / VolumeCollection TimeReceived Time05/10/2025 1:34 AM EDT Narrative 05/10/2025 1:36 AM EDT EXAMINATION: XR CHEST AP OR PA 1 VIEWPRO 05/10/2025 01:09 AM CLINICAL HISTORY: Aspiration ASSOCIATED DIAGNOSIS: Aspiration ORDERING PROVIDER: ADRIANA MOSER TECHNOLOGISTS NOTE: COMPARISON: CT abdomen and pelvis May 09, 2025. FINDINGS: Lines, tubes, and devices: A left-sided PICC line is seen with the tip overlying the distal SVC region. Lungs and pleura: Increased patchy opacities with blunting of the costophrenic angles are seen on the right. There is elevation of the right hemidiaphragm similar to the prior study. Cardiomediastinal silhouette: Normal cardiomediastinal silhouette. Musculoskeletal: Unremarkable. IMPRESSION: Right lower lobe consolidation with trace pleural fluid, concerning for pneumonia/aspiration. There is persistent elevation of the right hemidiaphragm. MACRO: None Procedure Note Beryl Wallace MD - 05/10/2025 EXAMINATION: XR CHEST AP OR PA 1 VIEWPRO 05/10/2025 01:09 AM CLINICAL HISTORY: Aspiration ASSOCIATED DIAGNOSIS: Aspiration ORDERING PROVIDER: ADRIANA MOSER TECHNOLOGISTS NOTE: COMPARISON: CT abdomen and pelvis May 09, 2025. FINDINGS: Lines, tubes, and devices: A left-sided PICC line is seen with the tipoverlying the distal SVC region. Lungs and pleura: Increased patchy opacities with blunting of thecostophrenic angles are seen on the right. There is elevation of the righthemidiaphragm similar to the prior study. Cardiomediastinal silhouette: Normal cardiomediastinal silhouette. Musculoskeletal: Unremarkable. IMPRESSION: Right lower lobe consolidation with trace pleural fluid, concerning for pneumonia/aspiration. There is persistent elevation of the right hemidiaphragm. MACRO: None Authorizing ProviderResult TypeResult StatusAdriana MARTÍNEZ DIAGNOSTIC X-RAY 2 Final Result * (ABNORMAL) GLUCOSE, FINGERSTICK-IN OFFICE (05/09/2025 9:03 PM EDT)Component ValueRef RangeTest MethodAnalysis TimePerformed AtPathologist Signature Glucose, HQW441(H)74 - 109 mg/dL05/09/2025 9:09 PM EDTNURSING GLUCOSE PROGRAM Specimen (Source)Anatomical Location / LateralityCollection Method / Volume Collection TimeReceived TimeBloodBLOOD SPECIMEN / Zerjami3605/09/2025 9:03 PM EDT05/09/2025 9:09 PM EDT Narrative Authorizing ProviderResult TypeResult StatusAlikendra MARTÍNEZ BACK OFFICE LABS Final ResultPerforming OrganizationAddressCity/State/ZIP CodePhone Number NURSING GLUCOSE PROGRAM [address] [place] [address] * EKG 12 LEAD - PERFORM (05/09/2025 8:06 PM EDT)ComponentValueRef RangeTest MethodAnalysis TimePerformed AtPathologist SignatureVentricular ngtd98GPOTOTK Atrial Arxj19NITAPADS-D Vybwuukp224bmYQRDDBQ nysdxpks51xmZJWUG-V izoozeob282lf MUSEQTC CALCULATION(BEZET)425msMUSEP hzgn28ahluueqCDFFX vvsq9oszwpezZMBUH axis 46degreesMUSEDiagnosisNormal sinus rhythm Normal ECG When compared with ECG of 09-MAY-2025 09:54, (unconfirmed) No significant change was found Confirmed by JUAN PABLO CALLOWAY ([id number]) on 05/10/2025 12:22:15 PM MUSESpecimen (Source)Anatomical Location / LateralityCollection Method / Volume Collection TimeReceived Time05/09/2025 8:06 PM EDT05/10/2025 12:22 PM EDT Narrative Authorizing ProviderResult TypeResult hSadia OG VITAL SIGN ORDERS Edited Result - FinalPerforming OrganizationAddressCity/State/ZIP CodePhone Number [address] [place] [address] * (ABNORMAL) GLUCOSE, FINGERSTICK-IN OFFICE (05/09/2025 1:59 PM EDT)Component ValueRef RangeTest MethodAnalysis TimePerformed AtPathologist Signature Glucose, KSN664(H)74 - 109 mg/dL05/09/2025 2:15 PM EDTNURSING GLUCOSE PROGRAM Comment:Notified RN ADOLFO ROCHE
Specimen (Source)Anatomical Location / LateralityCollection Method / VolumeCollection TimeReceived TimeBloodBLOOD SPECIMEN / Efhdgto3905/09/2025 1:59 PM EDT05/09/2025 2:15 PM EDT Narrative Authorizing ProviderResult TypeResult Arnie MARTÍNEZ BACK OFFICE LABS Final ResultPerforming OrganizationAddressCity/State/ZIP CodePhone Number NURSING GLUCOSE PROGRAM [address] [place] [address] * CT ABDOMEN/PELVIS W/ CONTRAST (05/09/2025 11:35 AM EDT)ComponentValueRef Range Test MethodAnalysis TimePerformed AtPathologist SignatureCTDI VOL12.0 (mGy) [facility]PH[facility] Body Dosimetry PhantomRADIOLOGYCT WWT072.9 (mGy.cm) RADIOLOGYCT SeriesAbdomenRADIOLOGYAnatomical RegionLateralityModalityCT Abdomen, Pelvis and lower extremitiesN/AComputed TomographySpecimen (Source) Anatomical Location / LateralityCollection Method / VolumeCollection Time Received Time05/09/2025 12:16 PM EDT Narrative 05/09/2025 1:01 PM EDT EXAMINATION: CT ABDOMEN/PELVIS W/ CONTRASTPRO 05/09/2025 11:35 AM CLINICAL HISTORY: eval for stricture at ostomy site ASSOCIATED DIAGNOSIS: eval for stricture at ostomy site ORDERING PROVIDER: MARK CORNELIUS TECHNOLOGISTS NOTE: COMPARISON: CT ABDOMEN/PELVIS W/ CONTRAST 04/30/2025 12:[address] BODY IMAGE IMPORT(HILARIA) 04/23/2025 12:10 PM TECHNIQUE: Contiguous axial images were obtained through the abdomen and pelvis from the level of the diaphragmatic domes through the pubic symphysis following bolus administration of intravenous contrast. MPR sagittal and coronal reconstructions were obtained from the axial data. Before infusion of intravenous contrast, radiology personnel investigated the possibility of an allergic history and of any history of reaction to iodinated contrast material. Contrast Protocol: Omnipaque 350 [>or =100lb] 100 ml [<100 lb] 1 ml per 1 lb. INTRA-PROCEDURE MEDS: iohexol (OMNIPAQUE) 300 MG/ML injection 50 mL Route: Oral iohexol (OMNIPAQUE) 350 MG/ML injection 100 mL Route: Intravenous FINDINGS: Included images of the lower thorax: Interval decrease in bilateral pleural effusions, without complete resolution. Bibasilar atelectasis, right greater than left, slightly improved on the left sincethe previous CT. Emphysematous changes are present in the lungs. Hepatobiliary: 1.3 cm low-attenuation lesion in the left hepatic lobe (image 50, series 3), unchanged. Gallbladder is contracted. No biliary dilatation. Pancreas: Unremarkable Spleen: Unremarkable Adrenal Glands: Left adrenal nodularity is unchanged. No right adrenal nodules. Kidneys, ureters, and bladder: 2 cm left renal cyst is again noted. No right renal lesions are seen. No calculi or hydroureteronephrosis. Urinary bladder is underdistended, limiting evaluation. Thereis adjacent fat stranding and wall thickening along the superior aspect of the bladder, which may be related to recent surgery or cystitis which may be secondarily inflamed. Abdominal and pelvic vasculature: Atherosclerotic wall calcifications are present without abdominalaortic aneurysm. GI tract: * ??Enteric tube terminates in the proximal body of the stomach. * ??Patient is status post recent perforated sigmoid diverticulitis complicated by abscess formation and small bowel obstruction. * ??Interval partial distal colonic resection with ostomy in the left lower quadrant and formation of a Isaacs's pouch. There is narrowing of the colonic lumen near the ostomy, measuring approximately 6.5 cm in length, although this loop of bowel is completely decompressed. Findings may be relatedto its underdistended state, bowel wall thickening/edema or possibly stricturing. * ??There is oral contrast in the stomach and multiple normal caliber loops of small bowel. Small bowel obstruction has resolved. There is a segment of small bowel wall thickening in the pelvis, likely secondarily inflamed. * ??There is an irregularly-shaped loculated fluid collection in the pelvis with rim enhancement (see image 45 of the sagittal reconstructions), concerning for an abscess. This has a bilobed appearance with collection anteriorly measuring approximately 5.7 x 3.5 cm (image 168, series 3) and posteriorly measuring 3.1 x 3.2 cm (image 175, series 3) which likely communicate through a thin connection. This resides adjacent to the surgical sutures of Isaacs's pouch: the possibility of leakage from Isaacs's pouch is not excluded. There is no leakage of oral contrast from the remainder of the bowel. Peritoneum and retroperitoneum: There is mesenteric and omental fat stranding presumably related toa combination of recent surgery and sequelae of recent bowel perforation. Loculated fluid in the pelvis, as described above is concerning for an abscess. There is also a small amount of free fluid inthe upper abdomen, particularly on the left: The sterility of this fluid cannot be determined by CT. Minimal extraluminal gas near the surgical incision sites are presumably related to recent surgery. Lymph Nodes: Small lymph nodes in the abdomen and pelvis measure within reactive range in size. Prostate and seminal vesicles: Unremarkable Other: Small bilateral inguinal hernias containing only fat. Small umbilical hernia containing onlyfat. There are skin frank along the midline anterior abdominal wall related to recent surgery. There is a small amount of fluid near the surgical incision site (image 110, series 3), measuring approximately 1.7 cm in diameter, the sterility of which is unknown. This could represent postoperative seroma, although infected fluid is also possible. Small tract along the right anterior abdominal wall containing a locule of air, presumably related to surgery. Visualized musculoskeletal structures: Multilevel degenerative changes of the spine. No acute fracture or destructive osseous lesion is identified. ?? IMPRESSION: 1. ??Status post recent partial colonic resection with formation of a left lower quadrant colostomyand Isaacs's pouch. There is narrowing of the colon near the ostomy along a 6.5 cm long segment. This could be secondary to its underdistended state or bowel wall thickening/edema. Cannot exclude underlying stricture. 2. ??Irregular loculated fluid collection in the pelvis concerning for an abscess. This abscess partially contacts the suture material in the Isaacs's pouch. Cannot exclude a leak from Isaacs's pouch. 3. ??Interval resolution of small bowel obstruction. There is a segment of small bowel wall thickening in the pelvis near the abscess, presumably secondarily inflamed. 4. ??Minimal pneumoperitoneum presumably related to recent surgery. 5. ??Bladder wall thickening and perivesical fat stranding near the above described pelvic abscess concerning for cystitis, likely secondarily inflamed. No air in the bladder lumen to suggest fistulaformation. 6. ??Please see above for further details and additional findings. MACRO: None Procedure Note Carina Pereira MD - 05/09/2025 EXAMINATION: CT ABDOMEN/PELVIS W/ CONTRASTPRO 05/09/2025 11:35 AM CLINICAL HISTORY: eval for stricture at ostomy site ASSOCIATED DIAGNOSIS: eval for stricture at ostomy site ORDERING PROVIDER: MARK CORNELIUS TECHNOLOGISTS NOTE: COMPARISON: CT ABDOMEN/PELVIS W/ CONTRAST 04/30/2025 12:[address] BODY IMAGE IMPORT(HILARIA) 04/23/2025 12:10 PM TECHNIQUE: Contiguous axial images were obtained through the abdomen andpelvis from the level of the diaphragmatic domes through the pubicsymphysis following bolus administration of intravenous contrast. MPRsagittal and coronal reconstructions were obtained from the axial data.Before infusion of intravenous contrast, radiology personnel investigatedthe possibility of an allergic history and of any history of reaction toiodinated contrast material. Contrast Protocol: Omnipaque 350 [>or =100lb]100 ml [<100 lb] 1 ml per 1 lb. INTRA-PROCEDURE MEDS: iohexol (OMNIPAQUE) 300 MG/ML injection 50 mL Route: Oral iohexol (OMNIPAQUE) 350 MG/ML injection 100 mL Route: Intravenous FINDINGS: Included images of the lower thorax: Interval decrease in bilateralpleural effusions, without complete resolution. Bibasilar atelectasis,right greater than left, slightly improved on the left since the previousCT. Emphysematous changes are present in the lungs. Hepatobiliary: 1.3 cm low-attenuation lesion in the left hepatic lobe(image 50, series 3), unchanged. Gallbladder is contracted. No biliarydilatation. Pancreas: Unremarkable Spleen: Unremarkable Adrenal Glands: Left adrenal nodularity is unchanged. No right adrenalnodules. Kidneys, ureters, and bladder: 2 cm left renal cyst is again noted. Noright renal lesions are seen. No calculi or hydroureteronephrosis. Urinarybladder is underdistended, limiting evaluation. There is adjacent fatstranding and wall thickening along the superior aspect of the bladder,which may be related to recent surgery or cystitis which may besecondarily inflamed. Abdominal and pelvic vasculature: Atherosclerotic wall calcifications arepresent without abdominal aortic aneurysm. GI tract: * Enteric tube terminates in the proximal body of the stomach. * Patient is status post recent perforated sigmoid diverticulitiscomplicated by abscess formation and small bowel obstruction. * Interval partial distal colonic resection with ostomy in the left lower quadrant and formation of a Isaacs's pouch. There is narrowing of thecolonic lumen near the ostomy, measuring approximately 6.5 cm in length,although this loop of bowel is completely decompressed. Findings may berelated to its underdistended state, bowel wall thickening/edema orpossibly stricturing. * There is oral contrast in the stomach and multiple normal caliber loopsof small bowel. Small bowel obstruction has resolved. There is a segmentof small bowel wall thickening in the pelvis, likely secondarily inflamed. * There is an irregularly-shaped loculated fluid collection in the pelviswith rim enhancement (see image 45 of the sagittal reconstructions),concerning for an abscess. This has a bilobed appearance with collectionanteriorly measuring approximately 5.7 x 3.5 cm (image 168, series 3) andposteriorly measuring 3.1 x 3.2 cm (image 175, series 3) which likelycommunicate through a thin connection. This resides adjacent to thesurgical sutures of Isaacs's pouch: the possibility of leakage fromHartman's pouch is not excluded. There is no leakage of oral contrast fromthe remainder of the bowel. Peritoneum and retroperitoneum: There is mesenteric and omental fatstranding presumably related to a combination of recent surgery andsequelae of recent bowel perforation. Loculated fluid in the pelvis, asdescribed above is concerning for an abscess. There is also a small amountof free fluid in the upper abdomen, particularly on the left: Thesterility of this fluid cannot be determined by CT. Minimal extraluminalgas near the surgical incision sites are presumably related to recentsurgery. Lymph Nodes: Small lymph nodes in the abdomen and pelvis measure withinreactive range in size. Prostate and seminal vesicles: Unremarkable Other: Small bilateral inguinal hernias containing only fat. Smallumbilical hernia containing only fat. There are skin frank along themidline anterior abdominal wall related to recent surgery. There is asmall amount of fluid near the surgical incision site (image 110, series3), measuring approximately 1.7 cm in diameter, the sterility of which isunknown. This could represent postoperative seroma, although infectedfluid is also possible. Small tract along the right anterior abdominalwall containing a locule of air, presumably related to surgery. Visualized musculoskeletal structures: Multilevel degenerative changes ofthe spine. No acute fracture or destructive osseous lesion is identified. IMPRESSION: 1. Status post recent partial colonic resection with formation of a leftlower quadrant colostomy and Isaacs's pouch. There is narrowing of thecolon near the ostomy along a 6.5 cm long segment. This could be secondaryto its underdistended state or bowel wall thickening/edema. Cannot excludeunderlying stricture. 2. Irregular loculated fluid collection in the pelvis concerning for anabscess. This abscess partially contacts the suture material in theHartman's pouch. Cannot exclude a leak from Isaacs's pouch. 3. Interval resolution of small bowel obstruction. There is a segment ofsmall bowel wall thickening in the pelvis near the abscess, presumablysecondarily inflamed. 4. Minimal pneumoperitoneum presumably related to recent surgery. 5. Bladder wall thickening and perivesical fat stranding near the abovedescribed pelvic abscess concerning for cystitis, likely secondarilyinflamed. No air in the bladder lumen to suggest fistula formation. 6. Please see above for further details and additional findings. MACRO: None Authorizing ProviderResult TypeResult Alix MARTÍNEZ CT SCANFinal Result * EKG 12 LEAD - PERFORM (05/09/2025 9:54 AM EDT)ComponentValueRef RangeTest MethodAnalysis TimePerformed AtPathologist SignatureVentricular snyz47QMGRUPQ Atrial Utkk99OXLDUDYE-K Zszrynta239rpDRHBZIW highmdwg90ohUSVEY-G xlfaspvt424fp MUSEQTC CALCULATION(BEZET)430msMUSEP pgqx94oyfwlzzVAROS rlnm23kvntyzkSLBDP hvst99wginhveHVOYJjlxqaejaPsfegl sinus rhythm Normal ECG No previous ECGs available Confirmed by BRITTANEY REYEZ ([id number]) on 05/10/2025 10:08:13 AM MUSESpecimen (Source)Anatomical Location / LateralityCollection Method / Volume Collection TimeReceived Time05/09/2025 9:54 AM EDT05/10/2025 10:08 AM EDT Narrative Authorizing ProviderResult TypeResult Alix OG VITAL SIGN ORDERSEdited Result - FinalPerforming OrganizationAddressCity/State/ZIP Code Phone Number [facility]USE [address] [place] [address] * GLUCOSE, FINGERSTICK-IN OFFICE (05/09/2025 6:42 AM EDT)ComponentValueRef Range Test MethodAnalysis TimePerformed AtPathologist SignatureGlucose, ALM0650 - 109 mg/dL05/09/2025 6:48 AM EDTNURSING GLUCOSE PROGRAMSpecimen (Source) Anatomical Location / LateralityCollection Method / VolumeCollection Time Received TimeBloodBLOOD SPECIMEN / Xxbbrnb3905/09/2025 6:42 AM EDT05/09/2025 6:48 AM EDT Narrative Authorizing ProviderResult TypeResult Arnie MARTÍNEZ BACK OFFICE LABS Final ResultPerforming OrganizationAddressCity/State/ZIP CodePhone Number NURSING GLUCOSE PROGRAM [address] [place] [address] * (ABNORMAL) HEPATIC FUNCTION PANEL (05/09/2025 1:09 AM EDT)ComponentValueRef RangeTest MethodAnalysis TimePerformed AtPathologist SignatureAlbumin2.5(L)3.5 - 5.7 g/dL05/09/2025 1:55 AM [facility] LABORATORYBilirubin, Direct0.09 0.03 - 0.18 mg/dL05/09/2025 1:55 AM [facility]LA[facility] LABORATORYBilirubin, Total0.30.3 - 1.0 mg/dL05/09/2025 1:55 AM [facility] LABORATORYComment: Note updated reference range.Alkaline Rwwbfaxdqbx2936 - 104 IU/L05/09/2025 1:55 AM [facility] LABORATORYALT (SGPT)167 - 52 IU/L05/09/2025 1:55 AM [facility] LABORATORYAST (SGOT)2113 - 39 IU/L05/09/2025 1:55 AM [facility] LABORATORYProtein, Total5.6(L)6.1 - 7.9 g/dL05/09/2025 1:55 AM EDT [facility] PATHOLOGY LABORATORYComment:Note updated reference range.Specimen (Source) Anatomical Location / LateralityCollection Method / VolumeCollection Time Received TimeBloodBLOOD SPECIMEN / UnknownVenipuncture / Arfcgdr4305/09/2025 1:09 AM EDT05/09/2025 1:25 AM EDT Narrative Authorizing ProviderResult TypeResult StatusDick Felipe MD98 GENERAL LABFinal ResultPerforming OrganizationAddressCity/State/ZIP CodePhone Number [facility] [address] [place] [address] * (ABNORMAL) BASIC METABOLIC PANEL (05/09/2025 1:09 AM EDT)ComponentValueRef RangeTest MethodAnalysis TimePerformed AtPathologist QosnjdbdfBwoanzj3920 - 109 mg/dL05/09/2025 1:55 AM EDLAURE[facility] PATH[facility] MWAGUERLUHYjtred065297 - 145 mmol/L05/09/2025 1:55 AM [facility] LABORATORYPotassium4.43.5 - 5.0 mmol/L05/09/2025 1:55 AM [facility] LABORATORYCarbon Hvemhjj5087 - 31 mmol/L05/09/2025 1:55 AM [facility] RHRJYIYTFBAyoipito51781 - 107 mmol/L 05/09/2025 1:55 AM [facility] LABORATORYBlood Urea Pzjxpbjp806 - 25 mg/dL05/09/2025 1:55 AM [facility] LABORATORYCreatinine0.50(L)0.70 - 1.30 mg/dL05/09/2025 1:55 AM [facility] LABORATORYCalcium8.1(L)8.6 - 10.3 mg/dL05/09/2025 1:55 AM [facility] LABORATORYAnion Vtc3869 - 20 05/09/2025 1:55 AM [facility] LABORATORYEstimated GFR (CKD-EPI)117>=60 mL/min/1.51qol9305/09/2025 1:55 AM [facility] PATH[facility] LABORATORYComment: 2020 CKD EPI Equation using Creatinine without Race Comment: ??Estimated glomerular filtration rate (eGFR) is calculated without a race coefficient. Values should be interpreted in the context of the patient's full clinical presentation. Reference: 1. Carlos C, Baweja M, Arnold DC, et al.. A Unifying Approach for GFR Estimation: Recommendations of the NKF-ASN Task Force on Reassessing the Inclusion of Race in Diagnosing Kidney Disease. AmericanJournal of Kidney Diseases 202;79(2):268-88.e1. 2. N Engl J Med 2021 Vol. 385 Issue 19 Pages 0259-1536 Specimen (Source)Anatomical Location / LateralityCollection Method / Volume Collection TimeReceived TimeBloodBLOOD SPECIMEN / UnknownVenipuncture / Unknown 05/09/2025 1:09 AM EDT05/09/2025 1:25 AM EDT Narrative Authorizing ProviderResult TypeResult StatusDick Felipe MD98 GENERAL LABFinal ResultPerforming OrganizationAddressCity/State/ZIP CodePhone Number [facility] [address] [place] [address] * (ABNORMAL) COMPLETE BLOOD COUNT (05/09/2025 1:09 AM EDT)ComponentValueRef RangeTest MethodAnalysis TimePerformed AtPathologist AeipbqiebRUR79.4(H)4.5 - 11.5 K/uL05/09/2025 1:30 AM [facility] LABORATORYRBC3.33(L)4.50 - 5.90 M/uL05/09/2025 1:30 AM [facility] CBDLWGUSSDUlavocuqon80.9(L)13.9 - 16.3 g/dL05/09/2025 1:30 AM [facility] KJIAPRTDUZLngdxdkfaz56.8(L)41.0 - 53.0 %05/09/2025 1:30 AM [facility] RTLGKKSQCXAAH9814 - 100 fL05/09/2025 1:30 AM [facility] HUPXXLBQMVSXB92.726.0 - 34.0 pg05/09/2025 1:30 AM [facility] HDYLMMFRGOZEYP60.332.0 - 35.9 g/dL05/09/2025 1:30 AM [facility] KZSDMBKZJZLfcsslsj631(H)150 - 400 K/uL05/09/2025 1:30 AM [facility] LABORATORYRDW-CV13.411.5 - 14.5 %05/09/2025 1:30 AM [facility] LABORATORYMPV8.57.5 - 11.2 fL05/09/2025 1:30 AM [facility] Specimen (Source)Anatomical Location / LateralityCollection Method / Volume Collection TimeReceived TimeBloodBLOOD SPECIMEN / UnknownVenipuncture / Birsyni1605/09/2025 1:09 AM EDT05/09/2025 1:25 AM EDT Narrative Authorizing ProviderResult TypeResult StatusDick Felipe MD98 GENERAL LABFinal ResultPerforming OrganizationAddressCity/State/ZIP CodePhone Number [facility] [address] [place] [address] * (ABNORMAL) TRIGLYCERIDES (05/09/2025 1:09 AM EDT)ComponentValueRef RangeTest MethodAnalysis TimePerformed AtPathologist KmqijymcgHquxccjigaxes413(H)<150 mg/dL05/09/2025 1:55 AM [facility] PATH[facility] LABORATORYComment: Normal: < 150 mg/dL Borderline High: 150-199 mg/dL High: 200-499 mg/dL Very High: > = 500 mg/dL Specimen (Source)Anatomical Location / LateralityCollection Method / Volume Collection TimeReceived TimeBloodBLOOD SPECIMEN / UnknownVenipuncture / Unknown 05/09/2025 1:09 AM EDT05/09/2025 1:25 AM EDT Narrative Authorizing ProviderResult TypeResult StatusDick LI GENERAL LABFinal ResultPerforming OrganizationAddressCity/State/ZIP CodePhone Number [facility] [address] [place] [phone] * PHOSPHORUS (05/09/2025 1:09 AM EDT)ComponentValueRef RangeTest MethodAnalysis TimePerformed AtPathologist SignaturePhosphorus, Serum3.42.5 - 5.0 mg/dL 05/09/2025 1:55 AM EDLAUREL [facility] PATHOLOGY LABORATORYSpecimen (Source)Anatomical Location / LateralityCollection Method / VolumeCollection TimeReceived Time BloodBLOOD SPECIMEN / UnknownVenipuncture / Gborszj9805/09/2025 1:09 AM EDT 05/09/2025 1:25 AM EDT Narrative Authorizing ProviderResult TypeResult StatusDick LI GENERAL LABFinal ResultPerforming OrganizationAddressCity/State/ZIP CodePhone Number [facility] [address] [place] [phone] * MAGNESIUM (05/09/2025 1:09 AM EDT)ComponentValueRef RangeTest MethodAnalysis TimePerformed AtPathologist SignatureMagnesium2.11.9 - 2.7 mg/dL05/09/2025 1:55 AM [facility] PATHOLOGY LABORATORYSpecimen (Source)Anatomical Location / LateralityCollection Method / VolumeCollection TimeReceived TimeBloodBLOOD SPECIMEN / UnknownVenipuncture / Xhbebbr2505/09/2025 1:09 AM EDT05/09/2025 1:25 AM EDT Narrative Authorizing ProviderResult TypeResult StatusDick LI GENERAL LABFinal ResultPerforming OrganizationAddressCity/State/ZIP CodePhone Number [facility] [address] [place] [phone] * GLUCOSE, FINGERSTICK-IN OFFICE (05/09/2025 12:21 AM EDT)ComponentValueRef RangeTest MethodAnalysis TimePerformed AtPathologist SignatureGlucose, CUZ762 74 - 109 mg/dL05/09/2025 12:27 AM EDTNURSING GLUCOSE PROGRAMSpecimen (Source) Anatomical Location / LateralityCollection Method / VolumeCollection Time Received TimeBloodBLOOD SPECIMEN / Tabukak3905/09/2025 12:21 AM EDT05/09/2025 12:27 AM EDT Narrative Authorizing ProviderResult TypeResult StatusMariangel MARTÍNEZ BACK OFFICE LABS Final ResultPerforming OrganizationAddressCity/State/ZIP CodePhone Number NURSING GLUCOSE PROGRAM [address] [place] [phone] * GLUCOSE, FINGERSTICK-IN OFFICE (05/08/2025 6:19 PM EDT)ComponentValueRef Range Test MethodAnalysis TimePerformed AtPathologist SignatureGlucose, [id number] - 109 mg/dL05/08/2025 6:25 PM EDTNURSING GLUCOSE PROGRAMSpecimen (Source) Anatomical Location / LateralityCollection Method / VolumeCollection Time Received TimeBloodBLOOD SPECIMEN / Lwgwihm9405/08/2025 6:19 PM EDT05/08/2025 6:25 PM EDT Narrative Authorizing ProviderResult TypeResult StatusMariangel MARTÍNEZ BACK OFFICE LABS Final ResultPerforming OrganizationAddressCity/State/ZIP CodePhone Number NURSING GLUCOSE PROGRAM [address] [place] [phone] * GLUCOSE, FINGERSTICK-IN OFFICE (05/08/2025 11:39 AM EDT)ComponentValueRef RangeTest MethodAnalysis TimePerformed AtPathologist SignatureGlucose, TBJ355 74 - 109 mg/dL05/08/2025 11:54 AM EDTNURSING GLUCOSE PROGRAMComment:Notified RN ADOLFO ROCHE
Specimen (Source)Anatomical Location / LateralityCollection Method / VolumeCollection TimeReceived TimeBloodBLOOD SPECIMEN / Unknown 05/08/2025 11:39 AM EDT05/08/2025 11:54 AM EDT Narrative Authorizing ProviderResult TypeResult StatusAlikendra MARTÍNEZ BACK OFFICE LABS Final ResultPerforming OrganizationAddressCity/State/ZIP CodePhone Number NURSING GLUCOSE PROGRAM [address] [place] [phone] * (ABNORMAL) GLUCOSE, FINGERSTICK-IN OFFICE (05/08/2025 6:14 AM EDT)Component ValueRef RangeTest MethodAnalysis TimePerformed AtPathologist Signature Glucose, CGQ079(H)74 - 109 mg/dL05/08/2025 6:20 AM EDTNURSING GLUCOSE PROGRAM Specimen (Source)Anatomical Location / LateralityCollection Method / Volume Collection TimeReceived TimeBloodBLOOD SPECIMEN / Utspprm9705/08/2025 6:14 AM EDT05/08/2025 6:20 AM EDT Narrative Authorizing ProviderResult TypeResult StatusAlicia Francisco MARTÍNEZ BACK OFFICE LABS Final ResultPerforming OrganizationAddressCity/State/ZIP CodePhone Number NURSING GLUCOSE PROGRAM [address] [place] [address] * (ABNORMAL) BASIC METABOLIC PANEL (05/08/2025 12:40 AM EDT)ComponentValueRef RangeTest MethodAnalysis TimePerformed AtPathologist GeecvwhliCxfelfy3291 - 109 mg/dL05/08/2025 1:17 AM [facility] PATHOLOGY ZNEDXZIBRNMqxgca435254 - 145 mmol/L05/08/2025 1:17 AM [facility] PATHOLOGY LABORATORYPotassium4.13.5 - 5.0 mmol/L05/08/2025 1:17 AM [facility] PATHOLOGY LABORATORYCarbon Rnjusig8035 - 31 mmol/L05/08/2025 1:17 AM [facility] PATH[facility] WLOBXNJVUYFfdzqxey91273 - 107 mmol/L 05/08/2025 1:17 AM [facility] PATHOLOGY LABORATORYBlood Urea Dmgknias972 - 25 mg/dL05/08/2025 1:17 AM [facility] PATHOLOGY LABORATORYCreatinine0.51(L)0.70 - 1.30 mg/dL05/08/2025 1:17 AM [facility] PATHOLOGY LABORATORYCalcium7.8(L)8.6 - 10.3 mg/dL05/08/2025 1:17 AM [facility] PATHOLOGY LABORATORYAnion Hqz7522 - 20 05/08/2025 1:17 AM [facility] PATHOLOGY LABORATORYEstimated GFR (CKD-EPI)117>=60 mL/min/1.13pqc9905/08/2025 1:17 AM [facility] PATHOLOGY LABORATORYComment: 2020 CKD EPI Equation using Creatinine without Race Comment: ??Estimated glomerular filtration rate (eGFR) is calculated without a race coefficient. Values should be interpreted in the context of the patient's full clinical presentation. Reference: 1. Terrance C, Tal M, Arnold DC, et al.. A Unifying Approach for GFR Estimation: Recommendations of the NKF-ASN Task Force on Reassessing the Inclusion of Race in Diagnosing Kidney Disease. AmericanJournal of Kidney Diseases 202;79(2):268-88.e1. 2. N Engl J Med 1 Vol. 385 Issue 19 Pages 8611-7023 Specimen (Source)Anatomical Location / LateralityCollection Method / Volume Collection TimeReceived TimeBloodBLOOD SPECIMEN / UnknownVenipuncture / Unknown 05/08/2025 12:40 AM EDT05/08/2025 12:49 AM EDT Narrative Authorizing ProviderResult TypeResult StatusDick Felipe MD98 GENERAL LABFinal ResultPerforming OrganizationAddressCity/State/[facility] CodePhone Number [facility] [address] [place] [phone] * (ABNORMAL) COMPLETE BLOOD COUNT (05/08/2025 12:40 AM EDT)ComponentValueRef RangeTest MethodAnalysis TimePerformed AtPathologist VbzaidsreYMG89.14.5 - 11.5 K/uL05/08/2025 12:54 AM [facility] PATHOLOGY LABORATORYRBC3.26(L)4.50 - 5.90 M/uL05/08/2025 12:54 AM [facility] PATHOLOG[facility] DUEHPUAXECZkvsvfmxhq97.3(L)13.9 - 16.3 g/dL05/08/2025 12:54 AM [facility] PATH[facility] GRTEVDJSWDYksnfqjavu14.1(L)41.0 - 53.0 %05/08/2025 12:54 AM [facility] PATH[facility] DMWQWEPKNBSOL2462 - 100 fL 05/08/2025 12:54 AM [facility] IXRHNWPJYVFPA14.526.0 - 34.0 pg05/08/2025 12:54 AM [facility] PATH[facility] EINNDMUCENVKLM07.232.0 - 35.9 g/dL05/08/2025 12:54 AM [facility] RIJALHSHOBFjfbncjv886(H)150 - 400 K/uL05/08/2025 12:54 AM [facility] PATHOLOGY LABORATORYRDW-CV13.611.5 - 14.5 %05/08/2025 12:54 AM [facility] PATHOLOGY LABORATORYMPV8.57.5 - 11.2 fL05/08/2025 12:54 AM [facility] PATHOLOGY LABORATORYSpecimen (Source)Anatomical Location / LateralityCollection Method / VolumeCollection TimeReceived TimeBloodBLOOD SPECIMEN / UnknownVenipuncture / Ihrdnwx3305/08/2025 12:40 AM EDT05/08/2025 12:49 AM EDT Narrative Authorizing ProviderResult TypeResult StatusDick LI GENERAL LABFinal ResultPerforming OrganizationAddressCity/State/ZIP CodePhone Number [facility] [address] [place] [phone] * PHOSPHORUS (05/08/2025 12:40 AM EDT)ComponentValueRef RangeTest MethodAnalysis TimePerformed AtPathologist SignaturePhosphorus, Serum3.72.5 - 5.0 mg/dL 05/08/2025 1:17 AM [facility] PATHOLOG[facility] LABORATORYSpecimen (Source)Anatomical Location / LateralityCollection Method / VolumeCollection TimeReceived Time BloodBLOOD SPECIMEN / UnknownVenipuncture / Dqsjgvo5405/08/2025 12:40 AM EDT 05/08/2025 12:49 AM EDT Narrative Authorizing ProviderResult TypeResult StatusDick LI GENERAL LABFinal ResultPerforming OrganizationAddEncompass Health [facility] of Yorkty/State/ZIP CodePhone Number [facility] [address] [place] [phone] * MAGNESIUM (05/08/2025 12:40 AM EDT)ComponentValueRef RangeTest MethodAnalysis TimePerformed AtPathologist SignatureMagnesium2.11.9 - 2.7 mg/dL05/08/2025 1:17 AM [facility] PATHOLOGY LABORATORYSpecimen (Source)Anatomical Location / LateralityCollection Method / VolumeCollection TimeReceived TimeBloodBLOOD SPECIMEN / UnknownVenipuncture / Vdeibjy4105/08/2025 12:40 AM EDT05/08/2025 12:49 AM EDT Narrative Authorizing ProviderResult TypeResult StatusDick LI GENERAL LABFinal ResultPerforming OrganizationAddressty/State/ZIP CodePhone Number [facility] [address] [place] [phone] * GLUCOSE, FINGERSTICK-IN OFFICE (05/08/2025 12:27 AM EDT)ComponentValueRef RangeTest MethodAnalysis TimePerformed AtPathologist SignatureGlucose, JPX1230 - 109 mg/dL05/08/2025 12:33 AM EDTNURSING GLUCOSE PROGRAMSpecimen (Source) Anatomical Location / LateralityCollection Method / VolumeCollection Time Received TimeBloodBLOOD SPECIMEN / Jzhwkzo6105/08/2025 12:27 AM EDT05/08/2025 12:33 AM EDT Narrative Authorizing ProviderResult TypeResult Arnie MARTÍNEZ BACK OFFICE LABS Final ResultPerforming OrganizationAddressCity/State/ZIP CodePhone Number NURSING GLUCOSE PROGRAM [address] [place] [address] * GLUCOSE, FINGERSTICK-IN OFFICE (05/07/2025 5:16 PM EDT)ComponentValueRef Range Test MethodAnalysis TimePerformed AtPathologist SignatureGlucose, [id number] - 109 mg/dL05/07/2025 5:23 PM EDTNURSING GLUCOSE PROGRAMComment:Notified SULY MATA MD
Specimen (Source)Anatomical Location / LateralityCollection Method / VolumeCollection TimeReceived TimeBloodBLOOD SPECIMEN / Rkcabhl0605/07/2025 5:16 PM EDT05/07/2025 5:23 PM EDT Narrative Authorizing ProviderResult TypeResult Arnie MARTÍNEZ BACK OFFICE LABS Final ResultPerforming OrganizationAddressCity/State/ZIP CodePhone Number NURSING GLUCOSE PROGRAM [address] [place] [address] * (ABNORMAL) GLUCOSE, FINGERSTICK-IN OFFICE (05/07/2025 11:27 AM EDT)Component ValueRef RangeTest MethodAnalysis TimePerformed AtPathologist Signature Glucose, PHJ220(H)74 - 109 mg/dL05/07/2025 11:59 AM EDTNURSING GLUCOSE PROGRAM Comment:Notified SULY MATA MD
Specimen (Source)Anatomical Location / LateralityCollection Method / VolumeCollection TimeReceived TimeBloodBLOOD SPECIMEN / Lssenwu9205/07/2025 11:27 AM EDT05/07/2025 11:59 AM EDT Narrative Authorizing ProviderResult TypeResult StatusMariangel MARTÍNEZ BACK OFFICE LABS Final ResultPerforming OrganizationAddressCity/State/ZIP CodePhone Number NURSING GLUCOSE PROGRAM [address] [place] [address] * GLUCOSE, FINGERSTICK-IN OFFICE (05/07/2025 8:01 AM EDT)ComponentValueRef Range Test MethodAnalysis TimePerformed AtPathologist SignatureGlucose, [id number] - 109 mg/dL05/07/2025 8:20 AM EDTNURSING GLUCOSE PROGRAMComment:Notified RN ADOLFO ROCHE
Specimen (Source)Anatomical Location / LateralityCollection Method / VolumeCollection TimeReceived TimeBloodBLOOD SPECIMEN / Vlfxwdf7305/07/2025 8:01 AM EDT05/07/2025 8:20 AM EDT Narrative Authorizing ProviderResult TypeResult StatusAlicia Francisco MARTÍNEZ BACK OFFICE LABS Final ResultPerforming OrganizationAddressCity/State/ZIP CodePhone Number NURSING GLUCOSE PROGRAM [address] [place] [phone] * XR ABDOMEN AP 1 VIEW (05/07/2025 3:51 AM EDT)Anatomical RegionLaterality ModalityXR AbdomenN/AComputed RadiographySpecimen (Source)Anatomical Location / LateralityCollection Method / VolumeCollection TimeReceived Time05/07/2025 5:05 AM EDT Narrative 05/07/2025 5:44 AM EDT EXAMINATION: XR ABDOMEN AP 1 VIEWPRO 05/07/2025 03:51 AM CLINICAL HISTORY: NGT placement ASSOCIATED DIAGNOSIS: ORDERING PROVIDER: CARLOS THOMAS TECHNOLOGISTS NOTE: COMPARISON: CT ABDOMEN/PELVIS W/ CONTRAST 04/30/2025 12:20 PM XR SMALL BOWEL ??WATER SOLUBLE CHALLENGE SINGLE CONTRAST 05/06/2025 6:02 PM FINDINGS: Multiple small bowel loops dilation. The enteric tube is seen overlying the fundus of the stomach. The sidehole is noted overlying the proximal gastric body. Right basilar atelectasis. IMPRESSION: Tip and sidehole of the enteric tube are well below the GE junction. MACRO: None I have personally reviewed the images and agree with the resident's interpretation. Procedure Note Beryl Wallace MD - 05/07/2025 EXAMINATION: XR ABDOMEN AP 1 VIEWPRO 05/07/2025 03:51 AM CLINICAL HISTORY: NGT placement ASSOCIATED DIAGNOSIS: ORDERING PROVIDER: CARLOS THOMAS TECHNOLOGISTS NOTE: COMPARISON: CT ABDOMEN/PELVIS W/ CONTRAST 04/30/2025 12:20 PM XR SMALLBOWEL WATER SOLUBLE CHALLENGE SINGLE CONTRAST 05/06/2025 6:02 PM FINDINGS: Multiple small bowel loops dilation. The enteric tube is seen overlyingthe fundus of the stomach. The sidehole is noted overlying the proximalgastric body. Right basilar atelectasis. IMPRESSION: Tip and sidehole of the enteric tube are well below the GE junction. MACRO: None I have personally reviewed the images and agree with the resident's interpretation. Authorizing ProviderResult TypeResult StatusJoheena MARTÍNEZ DIAGNOSTIC X-RAYFinal Result * (ABNORMAL) BASIC METABOLIC PANEL (05/07/2025 2:25 AM EDT)ComponentValueRef RangeTest MethodAnalysis TimePerformed AtPathologist IvujdkskfIldzecs59432 - 109 mg/dL05/07/2025 2:54 AM [facility] PATHOLOG[facility] FBLSTJZAFDBcdeov927244 - 145 mmol/L05/07/2025 2:54 AM [facility] PATHOLOGY LABORATORYPotassium3.93.5 - 5.0 mmol/L05/07/2025 2:54 AM [facility] PATHOLOGY LABORATORYCarbon Vepctdl7104 - 31 mmol/L05/07/2025 2:54 AM [facility] PATH[facility] KDBCWOCQUMCssvpxto41374 - 107 mmol/L 05/07/2025 2:54 AM [facility] PATHOLOGY LABORATORYBlood Urea Dxxnvvlu784 - 25 mg/dL05/07/2025 2:54 AM [facility] PATHOLOGY LABORATORYCreatinine0.50(L)0.70 - 1.30 mg/dL05/07/2025 2:54 AM [facility] PATHOLOGY LABORATORYCalcium7.4(L)8.6 - 10.3 mg/dL05/07/2025 2:54 AM [facility] PATHOLOGY LABORATORYAnion Sva3275 - 20 05/07/2025 2:54 AM [facility] PATHOLOGY LABORATORYEstimated GFR (CKD-EPI)117>=60 mL/min/1.83hfr6905/07/2025 2:54 AM [facility] PATHOLOGY LABORATORYComment: 2020 CKD EPI Equation using Creatinine without Race Comment: ??Estimated glomerular filtration rate (eGFR) is calculated without a race coefficient. Values should be interpreted in the context of the patient's full clinical presentation. Reference: 1. Terrance C, Tal M, Arnold DC, et al.. A Unifying Approach for GFR Estimation: Recommendations of the NKF-ASN Task Force on Reassessing the Inclusion of Race in Diagnosing Kidney Disease. AmericanJournal of Kidney Diseases 2021;79(2):268-88.e1. 2. N Engl J Med 2021 Vol. 385 Issue 19 Pages 6619-0460 Specimen (Source)Anatomical Location / LateralityCollection Method / Volume Collection TimeReceived TimeBloodBLOOD SPECIMEN / Rczolhb2605/07/2025 2:25 AM EDT 05/07/2025 2:25 AM EDT Narrative Authorizing ProviderResult TypeResult StatusDick Felipe MD98 GENERAL LABFinal ResultPerforming OrganizationAddressCity/State/ZIP CodePhone Number [facility] [address] [place] [phone] * PHOSPHORUS (05/07/2025 2:25 AM EDT)ComponentValueRef RangeTest MethodAnalysis TimePerformed AtPathologist SignaturePhosphorus, Serum3.82.5 - 5.0 mg/dL 05/07/2025 2:54 AM [facility]LAURE[facility] PATHOLOGY LABORATORYSpecimen (Source)Anatomical Location / LateralityCollection Method / VolumeCollection TimeReceived Time BloodBLOOD SPECIMEN / Zhwzmto9105/07/2025 2:25 AM EDT05/07/2025 2:25 AM EDT Narrative Authorizing ProviderResult TypeResult StatusDick LI GENERAL LABFinal ResultPerforming OrganizationAddressty/State/ZIP CodePhone Number [facility] [address] [place] [phone] * MAGNESIUM (05/07/2025 2:25 AM EDT)ComponentValueRef RangeTest MethodAnalysis TimePerformed AtPathologist SignatureMagnesium2.11.9 - 2.7 mg/dL05/07/2025 2:54 AM EDLAUREL [facility] PATHOLOGY LABORATORYSpecimen (Source)Anatomical Location / LateralityCollection Method / VolumeCollection TimeReceived TimeBloodBLOOD SPECIMEN / Zembful5605/07/2025 2:25 AM EDT05/07/2025 2:25 AM EDT Narrative Authorizing ProviderResult TypeResult StatusDick Felipe MD98 GENERAL LABFinal ResultPerforming OrganizationAddressCity/State/ZIP CodePhone Number [facility] [address] [place], [place] * (ABNORMAL) COMPLETE BLOOD COUNT (05/07/2025 2:10 AM EDT)ComponentValueRef RangeTest MethodAnalysis TimePerformed AtPathologist FzzclegukQJW00.54.5 - 11.5 K/uL05/07/2025 2:31 AM [facility] PATHOLOGY LABORATORYRBC3.26(L)4.50 - 5.90 M/uL05/07/2025 2:31 AM [facility] MAWJMTUYEREjfpmkvjym42.6(L)13.9 - 16.3 g/dL05/07/2025 2:31 AM [facility] QRMWBYSRNFXrxlqucmry13.4(L)41.0 - 53.0 %05/07/2025 2:31 AM [facility] JUTWPMVEWJYPJ3521 - 100 fL05/07/2025 2:31 AM [facility] BHVRGGAQGOAEF89.326.0 - 34.0 pg05/07/2025 2:31 AM [facility] XMKWMVVGAEUODB55.732.0 - 35.9 g/dL05/07/2025 2:31 AM [facility] CDGIEOGIMSDjsfpzto989(H)150 - 400 K/uL05/07/2025 2:31 AM [facility] PATHOLOGY LABORATORYRDW-CV13.711.5 - 14.5 %05/07/2025 2:31 AM [facility] PATHOLOGY LABORATORYMPV7.97.5 - 11.2 WA05/07/2025 2:31 AM [facility]ORY Specimen (Source)Anatomical Location / LateralityCollection Method / Volume Collection TimeReceived TimeBloodBLOOD SPECIMEN / Xycjkeb6205/07/2025 2:10 AM EDT05/07/2025 2:25 AM EDT Narrative Authorizing ProviderResult TypeResult StatusDick Felipe MD98 GENERAL LABFinal ResultPerforming OrganizationAddressCity/State/ZIP CodePhone Number [facility] [address] [place], [place] * (ABNORMAL) GLUCOSE, FINGERSTICK-IN OFFICE (05/06/2025 10:25 PM EDT)Component ValueRef RangeTest MethodAnalysis TimePerformed AtPathologist Signature Glucose, EKH973(H)74 - 109 mg/dL05/06/2025 10:31 PM EDTNURSING GLUCOSE PROGRAM Specimen (Source)Anatomical Location / LateralityCollection Method / Volume Collection TimeReceived TimeBloodBLOOD SPECIMEN / Purwkpf5605/06/2025 10:25 PM EDT05/06/2025 10:31 PM EDT Narrative Authorizing ProviderResult TypeResult StatusAlicia Francisco MDEC BACK OFFICE LABS Final ResultPerforming OrganizationAddressCity/State/ZIP CodePhone Number NURSING GLUCOSE PROGRAM [address] [place] [address] * XR SMALL BOWEL WATER SOLUBLE CHALLENGE SINGLE CONTRAST (05/06/2025 5:58 PM EDT)Anatomical RegionLateralityModalityFluoro GIN/AComputed Radiography Specimen (Source)Anatomical Location / LateralityCollection Method / Volume Collection TimeReceived Time05/06/2025 6:04 PM EDT Narrative 05/06/2025 10:38 PM EDT EXAMINATION: XR SMALL BOWEL WATER SOLUBLE CHALLENGE SINGLE CONTRASTPRO 05/06/2025 05:58 PM CLINICAL HISTORY: assess postop ileus ASSOCIATED DIAGNOSIS: ORDERING PROVIDER: DELILAH MELENDEZ COMPARISON: Abdominal x-ray on 05/04/2025, CT abdomen and pelvis on 04/30/2025. PROCEDURE: Following enteric administration of 150 cc Omnipaque 300 contrast, radiographs of the abdomen were obtained at 0 minutes, 4 hours, and 8 hours. FINDINGS: The crude tester view demonstrates nonobstructive bowel gas pattern and no evidence of bowel dilatation. The x-ray immediately after contrast administration demonstrates normal opacification of the stomach and the duodenum. No evidence of bowel dilatation to the extent visualized. The x-ray 4 hours after contrast administration demonstrates advancement of contrast in the small bowel. There are a few mildly dilated small bowel loops in the left abdomen, hard to be measured accurately secondary to overlap. The x-ray 8 hours after contrast administration demonstrates advancement of contrast up to the transverse colon. A few mildly dilated small bowel loops in the left abdomen are redemonstrated measuring up to 5.3 cm. The rest of the opacified bowel is normal in caliber. IMPRESSION: * ??Advancement of contrast up to transverse colon 8 hours after contrast administration indicatingno high-grade small bowel obstruction. * ??A few mildly dilated small bowel loops in the left abdomen, uncertain in etiology. * ??The rest of the opacified bowel is normal in caliber indicating no extensive ileus. MACRO: None Procedure Note Johnny Green MD - 05/06/2025 EXAMINATION: XR SMALL BOWEL WATER SOLUBLE CHALLENGE SINGLE HRJAKQDYODY52/25/2025 05:58 PM CLINICAL HISTORY: assess postop ileus ASSOCIATED DIAGNOSIS: ORDERING PROVIDER: DELILAH MELENDEZ COMPARISON: Abdominal x-ray on 05/04/2025, CT abdomen and pelvis on04/30/2025. PROCEDURE: Following enteric administration of 150 cc Omnipaque 300contrast, radiographs of the abdomen were obtained at 0 minutes, 4 hours,and 8 hours. FINDINGS: The crude tester view demonstrates nonobstructive bowel gas pattern and noevidence of bowel dilatation. The x-ray immediately after contrast administration demonstrates normal opacification of the stomach and the duodenum. No evidence of boweldilatation to the extent visualized. The x-ray 4 hours after contrast administration demonstrates advancementof contrast in the small bowel. There are a few mildly dilated small bowelloops in the left abdomen, hard to be measured accurately secondary tooverlap. The x-ray 8 hours after contrast administration demonstrates advancementof contrast up to the transverse colon. A few mildly dilated small bowelloops in the left abdomen are redemonstrated measuring up to 5.3 cm. Therest of the opacified bowel is normal in caliber. IMPRESSION: * Advancement of contrast up to transverse colon 8 hours after contrast administration indicating no high-grade small bowel obstruction. * A few mildly dilated small bowel loops in the left abdomen, uncertainin etiology. * The rest of the opacified bowel is normal in caliber indicating noextensive ileus. MACRO: None Authorizing ProviderResult TypeResult StatusLechio Huffbarbara NET DEVELOPER WITH [employer] DIAGNOSTIC X-RAYFinal Result * GLUCOSE, FINGERSTICK-IN OFFICE (05/06/2025 4:15 PM EDT)ComponentValueRef Range Test MethodAnalysis TimePerformed AtPathologist SignatureGlucose, VTG43204 - 109 mg/dL05/06/2025 4:22 PM EDTNURSING GLUCOSE PROGRAMComment:Notified RN ADOLFO ROCHE
Specimen (Source)Anatomical Location / LateralityCollection Method / VolumeCollection TimeReceived TimeBloodBLOOD SPECIMEN / Qvobklr7505/06/2025 4:15 PM EDT05/06/2025 4:22 PM EDT Narrative Authorizing ProviderResult TypeResult Arnie MARTÍNEZ BACK OFFICE LABS Final ResultPerforming OrganizationAddressCity/State/ZIP CodePhone Number NURSING GLUCOSE PROGRAM [address] [place] [phone] * (ABNORMAL) GLUCOSE, FINGERSTICK-IN OFFICE (05/06/2025 11:53 AM EDT)Component ValueRef RangeTest MethodAnalysis TimePerformed AtPathologist Signature Glucose, AWQ657(H)74 - 109 mg/dL05/06/2025 11:59 AM EDTNURSING GLUCOSE PROGRAM Specimen (Source)Anatomical Location / LateralityCollection Method / Volume Collection TimeReceived TimeBloodBLOOD SPECIMEN / Dolkwdy5905/06/2025 11:53 AM EDT05/06/2025 11:59 AM EDT Narrative Authorizing ProviderResult TypeResult StatusMariangel MARTÍNEZ BACK OFFICE LABS Final ResultPerforming OrganizationAddressCity/State/ZIP CodePhone Number NURSING GLUCOSE PROGRAM [address] [place] [phone] * GLUCOSE, FINGERSTICK-IN OFFICE (05/06/2025 6:56 AM EDT)ComponentValueRef Range Test MethodAnalysis TimePerformed AtPathologist SignatureGlucose, [id number] - 109 mg/dL05/06/2025 7:02 AM EDTNURSING GLUCOSE PROGRAMSpecimen (Source) Anatomical Location / LateralityCollection Method / VolumeCollection Time Received TimeBloodBLOOD SPECIMEN / Bvxeqol2505/06/2025 6:56 AM EDT05/06/2025 7:02 AM EDT Narrative Authorizing ProviderResult TypeResult StatusMariangel MARTÍNEZ BACK OFFICE LABS Final ResultPerforming OrganizationAddressCity/State/ZIP CodePhone Number NURSING GLUCOSE PROGRAM [address] [place] [phone] * (ABNORMAL) HEPATIC FUNCTION PANEL (05/06/2025 5:35 AM EDT)ComponentValueRef RangeTest MethodAnalysis TimePerformed AtPathologist SignatureAlbumin2.3(L)3.5 - 5.7 g/dL05/06/2025 6:16 AM [facility] PATHOLOGY LABORATORYBilirubin, Direct0.24 (H)0.03 - 0.18 mg/dL05/06/2025 6:16 AM [facility] PATHOLOGY LABORATORYBilirubin, Total0.50.3 - 1.0 mg/dL05/06/2025 6:16 AM [facility] PATHOLOGY LABORATORYComment: Note updated reference range.Alkaline Kmzdtokfzln0895 - 104 IU/L05/06/2025 6:16 AM [facility] PATHOLOG[facility] LABORATORYALT (SGPT)177 - 52 IU/L05/06/2025 6:16 AM [facility] PATHOLOG[facility] LABORATORYAST (SGOT)2613 - 39 IU/L05/06/2025 6:16 AM [facility] LABORATORYProtein, Total4.9(L)6.1 - 7.9 g/dL05/06/2025 6:16 AM EDT [facility] PATHOLOGY LABORATORYComment:Note updated reference range.Specimen (Source) Anatomical Location / LateralityCollection Method / VolumeCollection Time Received TimeBloodBLOOD SPECIMEN / UnknownCentral Line / Xfbxqzd3805/06/2025 5:35 AM EDT05/06/2025 5:44 AM EDT Narrative Authorizing ProviderResult TypeResult StatusDick Felipe MD98 GENERAL LABFinal ResultPerforming OrganizationAddressCity/State/ZIP CodePhone Number [facility] PATHOLOGY LABORATORY [address] [place] [phone] * (ABNORMAL) BASIC METABOLIC PANEL (05/06/2025 5:35 AM EDT)ComponentValueRef RangeTest MethodAnalysis TimePerformed AtPathologist RmdkufresCcxcrrz366(H)74 - 109 mg/dL05/06/2025 6:16 AM [facility] PATHOLOG[facility] RCSETOMXVLJtcyvw675119 - 145 mmol/L05/06/2025 6:16 AM [facility] PATHOLOG[facility] LABORATORYPotassium4.03.5 - 5.0 mmol/L05/06/2025 6:16 AM [facility] PATHOLOG[facility] LABORATORYCarbon Fwifmwv8132 - 31 mmol/L05/06/2025 6:16 AM [facility] EAJDSDCDKMFogoqldu16104 - 107 mmol/L 05/06/2025 6:16 AM [facility] PATHOLOG[facility] LABORATORYBlood Urea Johzemeo042 - 25 mg/dL05/06/2025 6:16 AM [facility] PATHOLOG[facility] LABORATORYCreatinine0.52(L)0.70 - 1.30 mg/dL05/06/2025 6:16 AM [facility] PATHOLOG[facility] LABORATORYCalcium7.5(L)8.6 - 10.3 mg/dL05/06/2025 6:16 AM [facility] PATHOLOG[facility] LABORATORYAnion Kqc9159 - 20 05/06/2025 6:16 AM [facility] PATHOLOG[facility] LABORATORYEstimated GFR (CKD-EPI)116>=60 mL/min/1.09onp5905/06/2025 6:16 AM [facility] PATHOLOGY LABORATORYComment: 2020 CKD EPI Equation using Creatinine without Race Comment: ??Estimated glomerular filtration rate (eGFR) is calculated without a race coefficient. Values should be interpreted in the context of the patient's full clinical presentation. Reference: 1. Terrance C, Tal M, Arnold DC, et al.. A Unifying Approach for GFR Estimation: Recommendations of the NKF-ASN Task Force on Reassessing the Inclusion of Race in Diagnosing Kidney Disease. AmericanJournal of Kidney Diseases 202;79(2):268-88.e1. 2. N Engl J Med 2021 Vol. 385 Issue 19 Pages 6116-3847 Specimen (Source)Anatomical Location / LateralityCollection Method / Volume Collection TimeReceived TimeBloodBLOOD SPECIMEN / UnknownCentral Line / Unknown 05/06/2025 5:35 AM EDT05/06/2025 5:44 AM EDT Narrative Authorizing ProviderResult TypeResult StatusDick Felipe MD98 GENERAL LABFinal ResultPerforming OrganizationAddressCity/State/ZIP CodePhone Number [facility] PATH[facility] LABORATORY [address] [place] [phone] * (ABNORMAL) COMPLETE BLOOD COUNT (05/06/2025 5:35 AM EDT)ComponentValueRef RangeTest MethodAnalysis TimePerformed AtPathologist QxqvttwdcZIV09.44.5 - 11.5 K/uL05/06/2025 5:49 AM [facility] PATHOLOG[facility] LABORATORYRBC3.27(L)4.50 - 5.90 M/uL05/06/2025 5:49 AM [facility] VDPOBORVGZIkakagzfdw05.5(L)13.9 - 16.3 g/dL05/06/2025 5:49 AM [facility] ZFXICOGQJKCjldawixrp76.1(L)41.0 - 53.0 %05/06/2025 5:49 AM [facility] CLOCXANBSMRPQ5881 - 100 fL05/06/2025 5:49 AM [facility] DVIXCWSCZMQCO38.026.0 - 34.0 pg05/06/2025 5:49 AM [facility] EGYZBFVNDKFINC98.732.0 - 35.9 g/dL05/06/2025 5:49 AM [facility] YILQNSQIFQVtkvehun818(H)150 - 400 K/uL05/06/2025 5:49 AM [facility] PATHOLOG[facility] LABORATORYRDW-CV13.311.5 - 14.5 %05/06/2025 5:49 AM [facility] PATH[facility] LABORATORYMPV7.87.5 - 11.2 fL05/06/2025 5:49 AM [facility] PATH[facility] LABORATORY Specimen (Source)Anatomical Location / LateralityCollection Method / Volume Collection TimeReceived TimeBloodBLOOD SPECIMEN / UnknownCentral Line / Vldjlej5405/06/2025 5:35 AM EDT05/06/2025 5:44 AM EDT Narrative Authorizing ProviderResult TypeResult StatusDick Felipe MD98 GENERAL LABFinal ResultPerforming OrganizationAddressCity/State/ZIP CodePhone Number [facility] PATH[facility] LABORATORY [address] [place] [phone] * (ABNORMAL) C-REACTIVE PROTEIN (05/06/2025 5:35 AM EDT)ComponentValueRef Range Test MethodAnalysis TimePerformed AtPathologist SignatureC-Reactive Protein 15.5(H)<0.5 mg/dL05/06/2025 6:16 AM [facility] PATHOLOGY LABORATORYSpecimen (Source)Anatomical Location / LateralityCollection Method / VolumeCollection TimeReceived TimeBloodBLOOD SPECIMEN / UnknownCentral Line / Xejyjla6105/06/2025 5:35 AM EDT05/06/2025 5:44 AM EDT Narrative Authorizing ProviderResult TypeResult StatusManjula Williamson PA-C98 GENERAL LABFinal ResultPerforming OrganizationAddressCity/State/ZIP CodePhone Number [facility] PATH[facility] LABORATORY [address] [place] [phone] * (ABNORMAL) PREALBUMIN (05/06/2025 5:35 AM EDT)ComponentValueRef RangeTest MethodAnalysis TimePerformed AtPathologist SignaturePrealbumin7.0(L)17.0 - 34.0 mg/dL05/06/2025 6:31 AM [facility] PATHOLOGY LABORATORYSpecimen (Source) Anatomical Location / LateralityCollection Method / VolumeCollection Time Received TimeBloodBLOOD SPECIMEN / UnknownCentral Line / Znarbza9705/06/2025 5:35 AM EDT05/06/2025 5:44 AM EDT Narrative Authorizing ProviderResult TypeResult StatusManjula Williamson PA-C98 GENERAL LABFinal ResultPerforming OrganizationAddressCity/State/ZIP CodePhone Number [facility] [address] [place] [phone] * TRIGLYCERIDES (05/06/2025 5:35 AM EDT)ComponentValueRef RangeTest Method Analysis TimePerformed AtPathologist BwqkmyanbSqdcscyycykug101<150 mg/dL 05/06/2025 6:16 AM [facility] PATH[facility] LABORATORYComment: Normal: < 150 mg/dL Borderline High: 150-199 mg/dL High: 200-499 mg/dL Very High: > = 500 mg/dL Specimen (Source)Anatomical Location / LateralityCollection Method / Volume Collection TimeReceived TimeBloodBLOOD SPECIMEN / UnknownCentral Line / Unknown 05/06/2025 5:35 AM EDT05/06/2025 5:44 AM EDT Narrative Authorizing ProviderResult TypeResult StatusDick Felipe MD98 GENERAL LABFinal ResultPerforming OrganizationAddressCity/State/ZIP CodePhone Number [facility] PATH[facility]ORATORY [address] [place] [phone] * PHOSPHORUS (05/06/2025 5:35 AM EDT)ComponentValueRef RangeTest MethodAnalysis TimePerformed AtPathologist SignaturePhosphorus, Serum3.92.5 - 5.0 mg/dL 05/06/2025 6:16 AM [facility] PATHOLOGY LABORATORYSpecimen (Source)Anatomical Location / LateralityCollection Method / VolumeCollection TimeReceived Time BloodBLOOD SPECIMEN / UnknownCentral Line / Vmhgrdk4005/06/2025 5:35 AM EDT 05/06/2025 5:44 AM EDT Narrative Authorizing ProviderResult TypeResult StatusDick Felipe MD98 GENERAL LABFinal ResultPerforming OrganizationAddressCity/State/ZIP CodePhone Number [facility] PATH[facility] LABORATORY [address] [place] [phone] * MAGNESIUM (05/06/2025 5:35 AM EDT)ComponentValueRef RangeTest MethodAnalysis TimePerformed AtPathologist SignatureMagnesium2.11.9 - 2.7 mg/dL05/06/2025 6:16 AM [facility] PATH[facility] LABORATORYSpecimen (Source)Anatomical Location / LateralityCollection Method / VolumeCollection TimeReceived TimeBloodBLOOD SPECIMEN / UnknownCentral Line / Zqoaezu0105/06/2025 5:35 AM EDT05/06/2025 5:44 AM EDT Narrative Authorizing ProviderResult TypeResult StatusDick Felipe MD98 GENERAL LABFinal ResultPerforming OrganizationAddressCity/State/ZIP CodePhone Number [facility] PATH[facility] LABORATORY [address] [place] [phone] * GLUCOSE, FINGERSTICK-IN OFFICE (05/06/2025 12:54 AM EDT)ComponentValueRef RangeTest MethodAnalysis TimePerformed AtPathologist SignatureGlucose, JAZ181 74 - 109 mg/dL05/06/2025 1:00 AM EDTNURSING GLUCOSE PROGRAMSpecimen (Source) Anatomical Location / LateralityCollection Method / VolumeCollection Time Received TimeBloodBLOOD SPECIMEN / Yyyilhv3405/06/2025 12:54 AM EDT05/06/2025 1:00 AM EDT Narrative Authorizing ProviderResult TypeResult StatusMariangel MARTÍNEZ BACK OFFICE LABS Final ResultPerforming OrganizationAddressty/State/ZIP CodePhone Number NURSING GLUCOSE PROGRAM [address] [place] [phone] * GLUCOSE, FINGERSTICK-IN OFFICE (05/05/2025 6:38 PM EDT)ComponentValueRef Range Test MethodAnalysis TimePerformed AtPathologist SignatureGlucose, LMT1304 - 109 mg/dL05/05/2025 6:44 PM EDTNURSING GLUCOSE PROGRAMSpecimen (Source) Anatomical Location / LateralityCollection Method / VolumeCollection Time Received TimeBloodBLOOD SPECIMEN / Xxzgyiw0705/05/2025 6:38 PM EDT05/05/2025 6:44 PM EDT Narrative Authorizing ProviderResult TypeResult StatusMariangel MARTÍNEZ BACK OFFICE LABS Final ResultPerforming OrganizationAddressCity/State/ZIP CodePhone Number NURSING GLUCOSE PROGRAM [address] [place] [address] * GLUCOSE, FINGERSTICK-IN OFFICE (05/05/2025 11:54 AM EDT)ComponentValueRef RangeTest MethodAnalysis TimePerformed AtPathologist SignatureGlucose, ECJ583 74 - 109 mg/dL05/05/2025 12:00 PM EDTNURSING GLUCOSE PROGRAMSpecimen (Source) Anatomical Location / LateralityCollection Method / VolumeCollection Time Received TimeBloodBLOOD SPECIMEN / Oxfdldz6505/05/2025 11:54 AM EDT05/05/2025 12:00 PM EDT Narrative Authorizing ProviderResult TypeResult StatusMariangel MARTÍNEZ BACK OFFICE LABS Final ResultPerforming OrganizationAddressCity/State/ZIP CodePhone Number NURSING GLUCOSE PROGRAM [address] [place] [phone] * (ABNORMAL) BASIC METABOLIC PANEL (05/05/2025 12:59 AM EDT)ComponentValueRef RangeTest MethodAnalysis TimePerformed AtPathologist TzxvjfeubGxgozdw72330 - 109 mg/dL05/05/2025 3:01 AM [facility] PATH[facility] QLWEFGGCKFTrjagd346660 - 145 mmol/L05/05/2025 3:01 AM [facility] PATHOLOGY LABORATORYPotassium3.93.5 - 5.0 mmol/L05/05/2025 3:01 AM [facility] PATHOLOGY LABORATORYCarbon Sfzvwde6435 - 31 mmol/L05/05/2025 3:01 AM [facility] BMDYJEEIJKRljemsbx00363 - 107 mmol/L 05/05/2025 3:01 AM [facility] PATHOLOGY LABORATORYBlood Urea Clznktwq414 - 25 mg/dL05/05/2025 3:01 AM [facility] PATHOLOGY LABORATORYCreatinine0.57(L)0.70 - 1.30 mg/dL05/05/2025 3:01 AM [facility] PATHOLOGY LABORATORYCalcium7.4(L)8.6 - 10.3 mg/dL05/05/2025 3:01 AM [facility] PATHOLOGY LABORATORYAnion Wkd9425 - 20 05/05/2025 3:01 AM [facility] PATHOLOGY LABORATORYEstimated GFR (CKD-EPI)113>=60 mL/min/1.11elf7605/05/2025 3:01 AM [facility] PATHOLOGY LABORATORYComment: 2020 CKD EPI Equation using Creatinine without Race Comment: ??Estimated glomerular filtration rate (eGFR) is calculated without a race coefficient. Values should be interpreted in the context of the patient's full clinical presentation. Reference: 1. Terrance C, Tal M, Arnold SIDHU, et al.. A Unifying Approach for GFR Estimation: Recommendations of the NKF-ASN Task Force on Reassessing the Inclusion of Race in Diagnosing Kidney Disease. AmericanJournal of Kidney Diseases 202;79(2):268-88.e1. 2. N Engl J Med 1 Vol. 385 Issue 19 Pages 0341-9324 Specimen (Source)Anatomical Location / LateralityCollection Method / Volume Collection TimeReceived TimeBloodBLOOD SPECIMEN / UnknownVenipuncture / Unknown 05/05/2025 12:59 AM EDT05/05/2025 2:03 AM EDT Narrative Authorizing ProviderResult TypeResult StatusDick Felipe MD98 GENERAL LABFinal ResultPerforming OrganizationAddressCity/State/ZIP CodePhone Number [facility] PATHOLOG[facility] LABORATORY [address] [place] [phone] * (ABNORMAL) COMPLETE BLOOD COUNT (05/05/2025 12:59 AM EDT)ComponentValueRef RangeTest MethodAnalysis TimePerformed AtPathologist LyxqilhvxRZO11.9(H)4.5 - 11.5 K/uL05/05/2025 2:13 AM [facility] PATHOLOGY LABORATORYRBC3.30(L)4.50 - 5.90 M/uL05/05/2025 2:13 AM [facility] PATH[facility] FDIQVKRGUQFklncijkqp29.6(L)13.9 - 16.3 g/dL05/05/2025 2:13 AM [facility] PATH[facility] AJPESNJVSACeelwoeout81.5(L)41.0 - 53.0 %05/05/2025 2:13 AM [facility] PATH[facility] FUWQNLQYTGYUU3858 - 100 fL05/05/2025 2:13 AM [facility] PATH[facility] AJOHJLWKDIZQE87.126.0 - 34.0 pg05/05/2025 2:13 AM [facility] PATH[facility] XUMHLZEQNHCTMB11.732.0 - 35.9 g/dL05/05/2025 2:13 AM [facility] PATH[facility] DXEDJXQMRXEqrflvgy876(H)150 - 400 K/uL05/05/2025 2:13 AM [facility] PATHOLOGY LABORATORYRDW-CV13.311.5 - 14.5 %05/05/2025 2:13 AM [facility] PATHOLOGY LABORATORYMPV8.57.5 - 11.2 fL05/05/2025 2:13 AM [facility] PATH[facility] LABORATORY Specimen (Source)Anatomical Location / LateralityCollection Method / Volume Collection TimeReceived TimeBloodBLOOD SPECIMEN / UnknownVenipuncture / Ihpgcxt3005/05/2025 12:59 AM EDT05/05/2025 2:07 AM EDT Narrative Authorizing ProviderResult TypeResult StatusDick LI GENERAL LABFinal ResultPerforming OrganizationAddressCity/State/ZIP CodePhone Number [facility] PATH[facility] LABORATORY [address] [place] [phone] * PHOSPHORUS (05/05/2025 12:59 AM EDT)ComponentValueRef RangeTest MethodAnalysis TimePerformed AtPathologist SignaturePhosphorus, Serum3.62.5 - 5.0 mg/dL 05/05/2025 3:01 AM [facility] PATHOLOGY LABORATORYSpecimen (Source)Anatomical Location / LateralityCollection Method / VolumeCollection TimeReceived Time BloodBLOOD SPECIMEN / UnknownVenipuncture / Ktzzeii1005/05/2025 12:59 AM EDT 05/05/2025 2:03 AM EDT Narrative Authorizing ProviderResult TypeResult StatusDick Felipe MD98 GENERAL LABFinal ResultPerforming OrganizationAddressCity/State/ZIP CodePhone Number [facility] PATH[facility] LABORATORY [address] [place] [phone] * MAGNESIUM (05/05/2025 12:59 AM EDT)ComponentValueRef RangeTest MethodAnalysis TimePerformed AtPathologist SignatureMagnesium2.01.9 - 2.7 mg/dL05/05/2025 3:01 AM [facility] PATHOLOGY LABORATORYSpecimen (Source)Anatomical Location / LateralityCollection Method / VolumeCollection TimeReceived TimeBloodBLOOD SPECIMEN / UnknownVenipuncture / Hsaehxd1305/05/2025 12:59 AM EDT05/05/2025 2:03 AM EDT Narrative Authorizing ProviderResult TypeResult StatusDick Felipe MD98 GENERAL LABFinal ResultPerforming OrganizationAddressCity/State/ZIP CodePhone Number [facility] PATH[facility]ORATORY [address] [place] [phone] * XR ABDOMEN AP 1 VIEW (05/04/2025 7:20 PM EDT)Anatomical RegionLaterality ModalityXR AbdomenN/AComputed RadiographySpecimen (Source)Anatomical Location / LateralityCollection Method / VolumeCollection TimeReceived Time05/04/2025 7:34 PM EDT Narrative 05/04/2025 7:35 PM EDT EXAMINATION: XR ABDOMEN AP 1 VIEWPRO 05/04/2025 07:20 PM CLINICAL HISTORY: NGT location, concern it's too distal ASSOCIATED DIAGNOSIS: ORDERING PROVIDER: MARIANGEL SINGH TECHNOLOGISTS NOTE: COMPARISON: XR ABDOMEN AP 1 VIEW 05/04/2025 9:54 AM IMPRESSION: Similar position of NG/OG tube compared to same day prior exam with sidehole overlying the gastric cardia and tip overlying the fundus. Several loops of dilated and prominent small bowel measuring upto 4.7 cm MACRO: None Procedure Note Yuliet Robbins MD - 05/04/2025 EXAMINATION: XR ABDOMEN AP 1 VIEWPRO 05/04/2025 07:20 PM CLINICAL HISTORY: NGT location, concern it's too distal ASSOCIATED DIAGNOSIS: ORDERING PROVIDER: MARIANGEL SINGH TECHNOLOGISTS NOTE: COMPARISON: XR ABDOMEN AP 1 VIEW 05/04/2025 9:54 AM IMPRESSION: Similar position of NG/OG tube compared to same day prior exam withsidehole overlying the gastric cardia and tip overlying the fundus.Several loops of dilated and prominent small bowel measuring up to 4.7cm MACRO: None Authorizing ProviderResult TypeResult StatusMariangel Singh MDEC DIAGNOSTIC X-RAY Final Result * GLUCOSE, FINGERSTICK-IN OFFICE (05/04/2025 5:02 PM EDT)ComponentValueRef Range Test MethodAnalysis TimePerformed AtPathologist SignatureGlucose, FKY02056 - 109 mg/dL05/04/2025 5:09 PM EDTNURSING GLUCOSE PROGRAMSpecimen (Source) Anatomical Location / LateralityCollection Method / VolumeCollection Time Received TimeBloodBLOOD SPECIMEN / Dtlzpsi2005/04/2025 5:02 PM EDT05/04/2025 5:09 PM EDT Narrative Authorizing ProviderResult TypeResult StatusAlikendra MARTÍNEZ BACK OFFICE LABS Final ResultPerforming OrganizationAddressCity/State/ZIP CodePhone Number NURSING GLUCOSE PROGRAM [address] [place] [phone] * GLUCOSE, FINGERSTICK-IN OFFICE (05/04/2025 11:51 AM EDT)ComponentValueRef RangeTest MethodAnalysis TimePerformed AtPathologist SignatureGlucose, MZQ207 74 - 109 mg/dL05/04/2025 11:57 AM EDTNURSING GLUCOSE PROGRAMSpecimen (Source) Anatomical Location / LateralityCollection Method / VolumeCollection Time Received TimeBloodBLOOD SPECIMEN / Agnlcxx5405/04/2025 11:51 AM EDT05/04/2025 11:57 AM EDT Narrative Authorizing ProviderResult TypeResult StatusMariangel MARTÍNEZ BACK OFFICE LABS Final ResultPerforming OrganizationAddressty/State/ZIP CodePhone Number NURSING GLUCOSE PROGRAM [address] [place], [place] [phone] * XR ABDOMEN AP 1 VIEW (05/04/2025 9:53 AM EDT)Anatomical RegionLaterality ModalityXR AbdomenN/AComputed RadiographySpecimen (Source)Anatomical Location / LateralityCollection Method / VolumeCollection TimeReceived Time05/04/2025 10:04 AM EDT Narrative 05/04/2025 10:08 AM EDT EXAMINATION: XR ABDOMEN AP 1 VIEWPRO 05/04/2025 09:53 AM CLINICAL HISTORY: Check ngt position ASSOCIATED DIAGNOSIS: ORDERING PROVIDER: PAULIE AYALA TECHNOLOGISTS NOTE: COMPARISON: XR ABDOMEN AP 1 VIEW 04/30/2025 3:[address] ABDOMEN/PELVIS W/ CONTRAST 04/30/2025 12:20 PM FINDINGS: Limited study for nasogastric tube placement. Nasogastric tube terminates overlying the proximal gastric region with its side- port overlying the gastric cardia region. Intestinal gas pattern: Gas distended loops of small bowel in the upper abdomen. Peritoneum: No pneumoperitoneum. Calcifications: No pathologic intra-abdominal calcification. Osseous structures: Unremarkable. Included lower chest: Grossly clear lung bases. Central venous catheter terminates overlying the distal superior vena cava region. Chest and abdominal wall: Midline abdominal cutaneous surgical frank. IMPRESSION: 1. ??Satisfactory position of the nasogastric tube. 2. ??Recent postsurgical changes of the abdomen with gas distended loops of small bowel in the upper abdomen, likely related to a postoperative ileus. 3. ??Central venous catheter terminates overlying the distal superior vena cava region. MACRO: None Procedure Note Baldemar Chopra, DO - 05/04/2025 EXAMINATION: XR ABDOMEN AP 1 VIEWPRO 05/04/2025 09:53 AM CLINICAL HISTORY: Check ngt position ASSOCIATED DIAGNOSIS: ORDERING PROVIDER: PAULIE AYALA TECHNOLOGISTS NOTE: COMPARISON: XR ABDOMEN AP 1 VIEW 04/30/2025 3:[address] ABDOMEN/PELVISW/ CONTRAST 04/30/2025 12:20 PM FINDINGS: Limited study for nasogastric tube placement. Nasogastric tube terminates overlying the proximal gastric region with itsside- port overlying the gastric cardia region. Intestinal gas pattern: Gas distended loops of small bowel in the upperabdomen. Peritoneum: No pneumoperitoneum. Calcifications: No pathologic intra-abdominal calcification. Osseous structures: Unremarkable. Included lower chest: Grossly clear lung bases. Central venous catheter terminates overlying the distal superior vena cava region. Chest and abdominal wall: Midline abdominal cutaneous surgical frank. IMPRESSION: 1. Satisfactory position of the nasogastric tube. 2. Recent postsurgical changes of the abdomen with gas distended loops ofsmall bowel in the upper abdomen, likely related to a postoperativeileus. 3. Central venous catheter terminates overlying the distal superior venacava region. MACRO: None Authorizing ProviderResult TypeResult StatusNatalikelechi Ayala PA-[facility] DIAGNOSTIC X-RAY Final Result * (ABNORMAL) GLUCOSE, FINGERSTICK-IN OFFICE (05/04/2025 7:53 AM EDT)Component ValueRef RangeTest MethodAnalysis TimePerformed AtPathologist Signature Glucose, FIV057(H)74 - 109 mg/dL05/04/2025 7:59 AM EDTNURSING GLUCOSE PROGRAM Specimen (Source)Anatomical Location / LateralityCollection Method / Volume Collection TimeReceived TimeBloodBLOOD SPECIMEN / Jqyalak1505/04/2025 7:53 AM EDT05/04/2025 7:59 AM EDT Narrative Authorizing ProviderResult TypeResult StatusAlicia Francisco MARTÍNEZ BACK OFFICE LABS Final ResultPerforming OrganizationAddressCity/State/ZIP CodePhone Number [facility] GLUCOSE PROGRAM [address] [place] [address] * (ABNORMAL) BASIC METABOLIC PANEL (05/04/2025 1:28 AM EDT)ComponentValueRef RangeTest MethodAnalysis TimePerformed AtPathologist WifmtmecoMavqawf698(H)74 - 109 mg/dL05/04/2025 2:01 AM [facility] SXSUAYCYNCDdkoys082452 - 145 mmol/L05/04/2025 2:01 AM [facility] PATHOLOG[facility] LABORATORYPotassium3.93.5 - 5.0 mmol/L05/04/2025 2:01 AM [facility] PATHOLOGY LABORATORYCarbon Cgcikwm6093 - 31 mmol/L05/04/2025 2:01 AM [facility] ZFPQMOETTJChxorjmr27872 - 107 mmol/L 05/04/2025 2:01 AM [facility] PATHOLOGY LABORATORYBlood Urea Oadjeppl903 - 25 mg/dL05/04/2025 2:01 AM [facility] PATH[facility] LABORATORYCreatinine0.58(L)0.70 - 1.30 mg/dL05/04/2025 2:01 AM [facility] PATHOLOGY LABORATORYCalcium7.5(L)8.6 - 10.3 mg/dL05/04/2025 2:01 AM [facility] PATH[facility] LABORATORYAnion Asq4770 - 20 05/04/2025 2:01 AM [facility] PATH[facility]Y LABORATORYEstimated GFR (CKD-EPI)112>=60 mL/min/1.02hoh8105/04/2025 2:01 AM [facility] PATHOLOGY LABORATORYComment: 2020 CKD EPI Equation using Creatinine without Race Comment: ??Estimated glomerular filtration rate (eGFR) is calculated without a race coefficient. Values should be interpreted in the context of the patient's full clinical presentation. Reference: 1. Terrance C, Tal M, Arnold SIDHU, et al.. A Unifying Approach for GFR Estimation: Recommendations of the NKF-ASN Task Force on Reassessing the Inclusion of Race in Diagnosing Kidney Disease. AmericanJournal of Kidney Diseases 2021;79(2):268-88.e1. 2. N Engl J Med 1 Vol. 385 Issue 19 Pages 9287-1096 Specimen (Source)Anatomical Location / LateralityCollection Method / Volume Collection TimeReceived TimeBloodBLOOD SPECIMEN / UnknownVenipuncture / Unknown 05/04/2025 1:28 AM EDT05/04/2025 1:34 AM EDT Narrative Authorizing ProviderResult TypeResult StatusDick Felipe MD98 GENERAL LABFinal ResultPerforming OrganizationAddressCity/State/ZIP CodePhone Number [facility] PATH[facility] LABORATORY [address] [place] [phone] * (ABNORMAL) COMPLETE BLOOD COUNT (05/04/2025 1:28 AM EDT)ComponentValueRef RangeTest MethodAnalysis TimePerformed AtPathologist YxqwyxdmmOJZ17.4(H)4.5 - 11.5 K/uL05/04/2025 1:38 AM [facility] PATH[facility] LABORATORYRBC3.33(L)4.50 - 5.90 M/uL05/04/2025 1:38 AM [facility] LIGZEELOHVIakutpacga46.6(L)13.9 - 16.3 g/dL05/04/2025 1:38 AM [facility] PYFGVOPQXBJktyilfcuz17.1(L)41.0 - 53.0 %05/04/2025 1:38 AM [facility] TBHMAFCXTOKOD3703 - 100 fL05/04/2025 1:38 AM [facility] KOAPGYZIPRCVP48.926.0 - 34.0 pg05/04/2025 1:38 AM [facility] TFSEZAERQOYQIT23.232.0 - 35.9 g/dL05/04/2025 1:38 AM [facility] NTQRUILLKCIeezexmp904(H)150 - 400 K/uL05/04/2025 1:38 AM [facility] PATH[facility] LABORATORYRDW-CV13.711.5 - 14.5 %05/04/2025 1:38 AM [facility] PATH[facility] LABORATORYMPV7.87.5 - 11.2 fL05/04/2025 1:38 AM [facility] PATH[facility] LABORATORY Specimen (Source)Anatomical Location / LateralityCollection Method / Volume Collection TimeReceived TimeBloodBLOOD SPECIMEN / UnknownVenipuncture / Kiaypfp8305/04/2025 1:28 AM EDT05/04/2025 1:34 AM EDT Narrative Authorizing ProviderResult TypeResult StatusDick LI GENERAL LABFinal ResultPerforming OrganizationAddressCity/State/ZIP CodePhone Number [facility] PATH[facility] LABORATORY [address] [place] [phone] * PHOSPHORUS (05/04/2025 1:28 AM EDT)ComponentValueRef RangeTest MethodAnalysis TimePerformed AtPathologist SignaturePhosphorus, Serum3.22.5 - 5.0 mg/dL 05/04/2025 2:01 AM [facility] PATHOLOG[facility] LABORATORYSpecimen (Source)Anatomical Location / LateralityCollection Method / VolumeCollection TimeReceived Time BloodBLOOD SPECIMEN / UnknownVenipuncture / Lwlgztl4405/04/2025 1:28 AM EDT 05/04/2025 1:34 AM EDT Narrative Authorizing ProviderResult TypeResult StatusDick LI GENERAL LABFinal ResultPerforming OrganizationAddressCity/State/ZIP CodePhone Number [facility] [address] [place] [address] * MAGNESIUM (05/04/2025 1:28 AM EDT)ComponentValueRef RangeTest MethodAnalysis TimePerformed AtPathologist SignatureMagnesium1.91.9 - 2.7 mg/dL05/04/2025 2:01 AM [facility] PATHOLOGY LABORATORYSpecimen (Source)Anatomical Location / LateralityCollection Method / VolumeCollection TimeReceived TimeBloodBLOOD SPECIMEN / UnknownVenipuncture / Fktosbm2105/04/2025 1:28 AM EDT05/04/2025 1:34 AM EDT Narrative Authorizing ProviderResult TypeResult StatusDick LI GENERAL LABFinal ResultPerforming OrganizationAddressCity/State/ZIP CodePhone Number [facility] [address] [place] [phone] * (ABNORMAL) GLUCOSE, FINGERSTICK-IN OFFICE (05/04/2025 1:26 AM EDT)Component ValueRef RangeTest MethodAnalysis TimePerformed AtPathologist Signature Glucose, FYM677(H)74 - 109 mg/dL05/04/2025 1:32 AM EDTNURSING GLUCOSE PROGRAM Specimen (Source)Anatomical Location / LateralityCollection Method / Volume Collection TimeReceived TimeBloodBLOOD SPECIMEN / Uxnjzmd1605/04/2025 1:26 AM EDT05/04/2025 1:32 AM EDT Narrative Authorizing ProviderResult TypeResult StatusMariangel MARTÍNEZ BACK OFFICE LABS Final ResultPerforming OrganizationAddressCity/State/ZIP CodePhone Number NURSING GLUCOSE PROGRAM [address] [place] [phone] * GLUCOSE, FINGERSTICK-IN OFFICE (05/03/2025 5:49 PM EDT)ComponentValueRef Range Test MethodAnalysis TimePerformed AtPathologist SignatureGlucose, PVK69280 - 109 mg/dL05/03/2025 5:55 PM EDTNURSING GLUCOSE PROGRAMSpecimen (Source) Anatomical Location / LateralityCollection Method / VolumeCollection Time Received TimeBloodBLOOD SPECIMEN / Urobnrc7405/03/2025 5:49 PM EDT05/03/2025 5:55 PM EDT Narrative Authorizing ProviderResult TypeResult StatusMariangel MARTÍNEZ BACK OFFICE LABS Final ResultPerforming OrganizationAddressCity/State/ZIP CodePhone Number NURSING GLUCOSE PROGRAM [address] [place] [phone] * (ABNORMAL) GLUCOSE, FINGERSTICK-IN OFFICE (05/03/2025 12:08 PM EDT)Component ValueRef RangeTest MethodAnalysis TimePerformed AtPathologist Signature Glucose, EOV720(H)74 - 109 mg/dL05/03/2025 12:15 PM EDTNURSING GLUCOSE PROGRAM Specimen (Source)Anatomical Location / LateralityCollection Method / Volume Collection TimeReceived TimeBloodBLOOD SPECIMEN / Ltrynof2405/03/2025 12:08 PM EDT05/03/2025 12:15 PM EDT Narrative Authorizing ProviderResult TypeResult StatusAlikendra MARTÍNEZ BACK OFFICE LABS Final ResultPerforming OrganizationAddressCity/State/ZIP CodePhone Number NURSING GLUCOSE PROGRAM [address] [place] [phone] * GLUCOSE, FINGERSTICK-IN OFFICE (05/03/2025 5:53 AM EDT)ComponentValueRef Range Test MethodAnalysis TimePerformed AtPathologist SignatureGlucose, SPG23683 - 109 mg/dL05/03/2025 5:59 AM EDTNURSING GLUCOSE PROGRAMComment:Notified SULY MATA MD
Specimen (Source)Anatomical Location / LateralityCollection Method / VolumeCollection TimeReceived TimeBloodBLOOD SPECIMEN / Znfjlsk6805/03/2025 5:53 AM EDT05/03/2025 5:59 AM EDT Narrative Authorizing ProviderResult TypeResult StatusAlikendra Singh MDEC BACK OFFICE LABS Final ResultPerforming OrganizationAddressCity/State/ZIP CodePhone Number NURSING GLUCOSE PROGRAM [address] [place] [address] * (ABNORMAL) HEPATIC FUNCTION PANEL (05/03/2025 12:38 AM EDT)ComponentValueRef RangeTest MethodAnalysis TimePerformed AtPathologist SignatureAlbumin2.0(L)3.5 - 5.7 g/dL05/03/2025 1:13 AM [facility] PATHOLOGY LABORATORYBilirubin, Direct0.12 0.03 - 0.18 mg/dL05/03/2025 1:13 AM [facility] PATHOLOGY LABORATORYBilirubin, Total0.30.3 - 1.0 mg/dL05/03/2025 1:13 AM [facility] PATHOLOGY LABORATORYComment: Note updated reference range.Alkaline Yxuvwqsazej3987 - 104 IU/L05/03/2025 1:13 AM [facility] PATHOLOGY LABORATORYALT (SGPT)117 - 52 IU/L05/03/2025 1:13 AM [facility] PATHOLOGY LABORATORYAST (SGOT)1713 - 39 IU/L05/03/2025 1:13 AM [facility] PATHOLOGY LABORATORYProtein, Total4.2(L)6.1 - 7.9 g/dL05/03/2025 1:13 AM EDT [facility] PATHOLOGY LABORATORYComment:Note updated reference range.Specimen (Source) Anatomical Location / LateralityCollection Method / VolumeCollection Time Received TimeBloodBLOOD SPECIMEN / UnknownCentral Line / Jlwanqq1205/03/2025 12:38 AM EDT05/03/2025 12:45 AM EDT Narrative Authorizing ProviderResult TypeResult Cami Felipe MD98 GENERAL LABFinal ResultPerforming OrganizationAddressCity/State/ZIP CodePhone Number [facility] [address] [place] [address] * (ABNORMAL) BASIC METABOLIC PANEL (05/03/2025 12:38 AM EDT)ComponentValueRef RangeTest MethodAnalysis TimePerformed AtPathologist DceiblaeyFeehqzd747(H)74 - 109 mg/dL05/03/2025 1:13 AM [facility] PATHOLOG[facility] ZZLXEPWVWEEilyyu423964 - 145 mmol/L05/03/2025 1:13 AM [facility] PATHOLOGY LABORATORYPotassium3.4(L)3.5 - 5.0 mmol/L05/03/2025 1:13 AM [facility] PATHOLOGY LABORATORYCarbon Mcwfeda8606 - 31 mmol/L05/03/2025 1:13 AM [facility] PATH[facility] EACCHFXQCVGlixdovy54573 - 107 mmol/L 05/03/2025 1:13 AM [facility] PATHOLOGY LABORATORYBlood Urea Snfwermi674 - 25 mg/dL05/03/2025 1:13 AM [facility] PATHOLOGY LABORATORYCreatinine0.65(L)0.70 - 1.30 mg/dL05/03/2025 1:13 AM [facility] PATHOLOGY LABORATORYCalcium7.3(L)8.6 - 10.3 mg/dL05/03/2025 1:13 AM [facility] PATHOLOGY LABORATORYAnion Ydb3418 - 20 05/03/2025 1:13 AM [facility] PATHOLOGY LABORATORYEstimated GFR (CKD-EPI)109>=60 mL/min/1.10hxb8205/03/2025 1:13 AM [facility] PATHOLOGY LABORATORYComment: 2020 CKD EPI Equation using Creatinine without Race Comment: ??Estimated glomerular filtration rate (eGFR) is calculated without a race coefficient. Values should be interpreted in the context of the patient's full clinical presentation. Reference: 1. Terrance C, Baeliezer M, Arnold DC, et al.. A Unifying Approach for GFR Estimation: Recommendations of the NKF-ASN Task Force on Reassessing the Inclusion of Race in Diagnosing Kidney Disease. AmericanJournal of Kidney Diseases 202;79(2):268-88.e1. 2. N Engl J Med 2021 Vol. 385 Issue 19 Pages 9267-1452 Specimen (Source)Anatomical Location / LateralityCollection Method / Volume Collection TimeReceived TimeBloodBLOOD SPECIMEN / UnknownCentral Line / Unknown 05/03/2025 12:38 AM EDT05/03/2025 12:45 AM EDT Narrative Authorizing ProviderResult TypeResult StatusDick LI GENERAL LABFinal ResultPerforming OrganizationAddressCity/State/ZIP CodePhone Number [facility] [address] [place] [address] * (ABNORMAL) COMPLETE BLOOD COUNT (05/03/2025 12:38 AM EDT)ComponentValueRef RangeTest MethodAnalysis TimePerformed AtPathologist GsbpoomfgLHT72.2(H)4.5 - 11.5 K/uL05/03/2025 12:51 AM [facility] PATHOLOGY LABORATORYRBC3.27(L)4.50 - 5.90 M/uL05/03/2025 12:51 AM [facility] BITXZHXAUSNdqkybdfnq27.5(L)13.9 - 16.3 g/dL05/03/2025 12:51 AM [facility] IPTVZCMGIMIsfqlqlaxz69.6(L)41.0 - 53.0 %05/03/2025 12:51 AM [facility] CFLJACSWFMENS9581 - 100 fL 05/03/2025 12:51 AM [facility] LLUUJJFTXPNRW98.326.0 - 34.0 pg05/03/2025 12:51 AM [facility] SPHDCCKAZOKSUX44.432.0 - 35.9 g/dL05/03/2025 12:51 AM [facility] NVWIUGSSAKIuecdyns772(H)150 - 400 K/uL05/03/2025 12:51 AM [facility] PATHOLOGY LABORATORYRDW-CV13.311.5 - 14.5 %05/03/2025 12:51 AM [facility] PATHOLOGY LABORATORYMPV7.97.5 - 11.2 fL05/03/2025 12:51 AM [facility] PATHOLOGY LABORATORYSpecimen (Source)Anatomical Location / LateralityCollection Method / VolumeCollection TimeReceived TimeBloodBLOOD SPECIMEN / UnknownCentral Line / Zakhqxy4005/03/2025 12:38 AM EDT05/03/2025 12:45 AM EDT Narrative Authorizing ProviderResult TypeResult StatusDick LI GENERAL LABFinal ResultPerforming OrganizationAddEn[facility] of Yorkty/State/ZIP CodePhone Number [facility] [address] [place] [phone] * TRIGLYCERIDES (05/03/2025 12:38 AM EDT)ComponentValueRef RangeTest Method Analysis TimePerformed AtPathologist PqshmtpqwDbkwfwucivikp945<150 mg/dL 05/03/2025 1:13 AM [facility] PATHOLOGY LABORATORYComment: Normal: < 150 mg/dL Borderline High: 150-199 mg/dL High: 200-499 mg/dL Very High: > = 500 mg/dL Specimen (Source)Anatomical Location / LateralityCollection Method / Volume Collection TimeReceived TimeBloodBLOOD SPECIMEN / UnknownCentral Line / Unknown 05/03/2025 12:38 AM EDT05/03/2025 12:45 AM EDT Narrative Authorizing ProviderResult TypeResult StatusDick LI GENERAL LABFinal ResultPerforming OrganizationAddEncompass [facility] of Yorkty/State/ZIP CodePhone Number [facility] [address] [place] [phone] * (ABNORMAL) PHOSPHORUS (05/03/2025 12:38 AM EDT)ComponentValueRef RangeTest MethodAnalysis TimePerformed AtPathologist SignaturePhosphorus, Serum2.3(L)2.5 - 5.0 mg/dL05/03/2025 1:13 AM [facility] PATHOLOGY LABORATORYSpecimen (Source) Anatomical Location / LateralityCollection Method / VolumeCollection Time Received TimeBloodBLOOD SPECIMEN / UnknownCentral Line / Fydirzl9605/03/2025 12:38 AM EDT05/03/2025 12:45 AM EDT Narrative Authorizing ProviderResult TypeResult StatusDick LI GENERAL LABFinal ResultPerforming OrganizationAddEn[facility] of Yorkty/State/ZIP CodePhone Number [facility] [address] [place] [phone] * MAGNESIUM (05/03/2025 12:38 AM EDT)ComponentValueRef RangeTest MethodAnalysis TimePerformed AtPathologist SignatureMagnesium2.11.9 - 2.7 mg/dL05/03/2025 1:13 AM [facility] PATH[facility] LABORATORYSpecimen (Source)Anatomical Location / LateralityCollection Method / VolumeCollection TimeReceived TimeBloodBLOOD SPECIMEN / UnknownCentral Line / Tojqozh3105/03/2025 12:38 AM EDT05/03/2025 12:45 AM EDT Narrative Authorizing ProviderResult TypeResult Cami Felipe MD98 GENERAL LABFinal ResultPerforming OrganizationAddressCity/State/ZIP CodePhone Number S PATHOLOGY LABORATORY [address] [place] [phone] * GLUCOSE, FINGERSTICK-IN OFFICE (05/03/2025 12:37 AM EDT)ComponentValueRef RangeTest MethodAnalysis TimePerformed AtPathologist SignatureGlucose, GDS4781 - 109 mg/dL05/03/2025 12:43 AM EDTNURSING GLUCOSE PROGRAMComment:Notified SULY MATA MD
Specimen (Source)Anatomical Location / LateralityCollection Method / VolumeCollection TimeReceived TimeBloodBLOOD SPECIMEN / Cohgfvc5005/03/2025 12:37 AM EDT05/03/2025 12:43 AM EDT Narrative Authorizing ProviderResult TypeResult StatusMariangel MARTÍNEZ BACK OFFICE LABS Final ResultPerforming OrganizationAddressCity/State/ZIP CodePhone Number NURSING GLUCOSE PROGRAM [address] [place] [phone] * (ABNORMAL) GLUCOSE, FINGERSTICK-IN OFFICE (05/02/2025 5:58 PM EDT)Component ValueRef RangeTest MethodAnalysis TimePerformed AtPathologist Signature Glucose, WAE701(H)74 - 109 mg/dL05/02/2025 6:15 PM EDTNURSING GLUCOSE PROGRAM Comment:Notified SULY MATA MD
Specimen (Source)Anatomical Location / LateralityCollection Method / VolumeCollection TimeReceived TimeBloodBLOOD SPECIMEN / Rgezkcy9505/02/2025 5:58 PM EDT05/02/2025 6:15 PM EDT Narrative Authorizing ProviderResult TypeResult StatusMariangel MARTÍNEZ BACK OFFICE LABS Final ResultPerforming OrganizationAddressCity/State/ZIP CodePhone Number NURSING GLUCOSE PROGRAM [address] [place] [address] * (ABNORMAL) GLUCOSE, FINGERSTICK-IN OFFICE (05/02/2025 12:02 PM EDT)Component ValueRef RangeTest MethodAnalysis TimePerformed AtPathologist Signature Glucose, PBW137(H)74 - 109 mg/dL05/02/2025 12:08 PM EDTNURSING GLUCOSE PROGRAM Specimen (Source)Anatomical Location / LateralityCollection Method / Volume Collection TimeReceived TimeBloodBLOOD SPECIMEN / Hllkuqs0005/02/2025 12:02 PM EDT05/02/2025 12:08 PM EDT Narrative Authorizing ProviderResult TypeResult Arnie MARTÍNEZ BACK OFFICE LABS Final ResultPerforming OrganizationAddressCity/State/ZIP CodePhone Number NURSING GLUCOSE PROGRAM [address] [place] [address] * (ABNORMAL) GLUCOSE, FINGERSTICK-IN OFFICE (05/02/2025 6:02 AM EDT)Component ValueRef RangeTest MethodAnalysis TimePerformed AtPathologist Signature Glucose, OCZ210(H)74 - 109 mg/dL05/02/2025 6:09 AM EDTNURSING GLUCOSE PROGRAM Comment:Notified SULY MATA MD
Specimen (Source)Anatomical Location / LateralityCollection Method / VolumeCollection TimeReceived TimeBloodBLOOD SPECIMEN / Btkwkox5505/02/2025 6:02 AM EDT05/02/2025 6:09 AM EDT Narrative Authorizing ProviderResult TypeResult StatusMariangel MARTÍNEZ BACK OFFICE LABS Final ResultPerforming OrganizationAddressCity/State/ZIP CodePhone Number NURSING GLUCOSE PROGRAM [address] [place] [address] * GLUCOSE, FINGERSTICK-IN OFFICE (05/02/2025 12:26 AM EDT)ComponentValueRef RangeTest MethodAnalysis TimePerformed AtPathologist SignatureGlucose, BUK929 74 - 109 mg/dL05/02/2025 12:33 AM EDTNURSING GLUCOSE PROGRAMComment:Notified SULY MATA MD
Specimen (Source)Anatomical Location / LateralityCollection Method / VolumeCollection TimeReceived TimeBloodBLOOD SPECIMEN / Unknown 05/02/2025 12:26 AM EDT05/02/2025 12:33 AM EDT Narrative Authorizing ProviderResult TypeResult StatusMariangel MARTÍNEZ BACK OFFICE LABS Final ResultPerforming OrganizationAddressCity/State/ZIP CodePhone Number NURSING GLUCOSE PROGRAM [address] [place] [address] * (ABNORMAL) HEPATIC FUNCTION PANEL (05/02/2025 12:25 AM EDT)ComponentValueRef RangeTest MethodAnalysis TimePerformed AtPathologist SignatureAlbumin2.0(L)3.5 - 5.7 g/dL05/02/2025 1:17 AM [facility] PATHOLOGY LABORATORYBilirubin, Direct0.13 0.03 - 0.18 mg/dL05/02/2025 1:17 AM [facility] PATHOLOGY LABORATORYBilirubin, Total0.30.3 - 1.0 mg/dL05/02/2025 1:17 AM [facility] PATHOLOGY LABORATORYComment: Note updated reference range.Alkaline Yxgeakujfhw5215 - 104 IU/L05/02/2025 1:17 AM [facility] PATHOLOGY LABORATORYALT (SGPT)117 - 52 IU/L05/02/2025 1:17 AM [facility] PATHOLOGY LABORATORYAST (SGOT)1413 - 39 IU/L05/02/2025 1:17 AM [facility] PATHOLOG[facility] LABORATORYProtein, Total4.0(L)6.1 - 7.9 g/dL05/02/2025 1:17 AM EDT [facility] PATHOLOGY LABORATORYComment:Note updated reference range.Specimen (Source) Anatomical Location / LateralityCollection Method / VolumeCollection Time Received TimeBloodBLOOD SPECIMEN / UnknownCentral Line / Gpykils7405/02/2025 12:25 AM EDT05/02/2025 12:37 AM EDT Narrative Authorizing ProviderResult TypeResult StatusDick Felipe MD98 GENERAL LABFinal ResultPerforming OrganizationAddressCity/State/ZIP CodePhone Number [facility] [address] [place] [phone] * (ABNORMAL) BASIC METABOLIC PANEL (05/02/2025 12:25 AM EDT)ComponentValueRef RangeTest MethodAnalysis TimePerformed AtPathologist EbbqinpwoIkovinw691(H)74 - 109 mg/dL05/02/2025 1:17 AM [facility] MRTQNBPMUGLxycye947869 - 145 mmol/L05/02/2025 1:17 AM [facility] PATHOLOGY LABORATORYPotassium3.73.5 - 5.0 mmol/L05/02/2025 1:17 AM [facility] PATHOLOGY LABORATORYCarbon Wtgadgn09(H)21 - 31 mmol/L05/02/2025 1:17 AM [facility] KWHNERZZWUIjumkzml37795 - 107 mmol/L 05/02/2025 1:17 AM [facility] PATHOLOGY LABORATORYBlood Urea Nmsflykh118 - 25 mg/dL05/02/2025 1:17 AM [facility] PATHOLOGY LABORATORYCreatinine0.870.70 - 1.30 mg/dL05/02/2025 1:17 AM [facility] PATHOLOGY LABORATORYCalcium7.1(L)8.6 - 10.3 mg/dL05/02/2025 1:17 AM [facility] PATHOLOGY LABORATORYAnion Dxq3146 - 20 05/02/2025 1:17 AM [facility] PATHOLOGY LABORATORYEstimated GFR (CKD-EPI)99>=60 mL/min/1.24ukl8205/02/2025 1:17 AM [facility] PATHOLOGY LABORATORYComment: 2020 CKD EPI Equation using Creatinine without Race Comment: ??Estimated glomerular filtration rate (eGFR) is calculated without a race coefficient. Values should be interpreted in the context of the patient's full clinical presentation. Reference: 1. Terrance C, Tal M, Arnold SIDHU, et al.. A Unifying Approach for GFR Estimation: Recommendations of the NKF-ASN Task Force on Reassessing the Inclusion of Race in Diagnosing Kidney Disease. AmericanJournal of Kidney Diseases 2021;79(2):268-88.e1. 2. N Engl J Med 1 Vol. 385 Issue 19 Pages 3417-6604 Specimen (Source)Anatomical Location / LateralityCollection Method / Volume Collection TimeReceived TimeBloodBLOOD SPECIMEN / UnknownCentral Line / Unknown 05/02/2025 12:25 AM EDT05/02/2025 12:37 AM EDT Narrative Authorizing ProviderResult TypeResult StatusDick Felipe MD98 GENERAL LABFinal ResultPerforming OrganizationAddressCity/State/ZIP CodePhone Number [facility] [address] [place] [phone] * (ABNORMAL) COMPLETE BLOOD COUNT (05/02/2025 12:25 AM EDT)ComponentValueRef RangeTest MethodAnalysis TimePerformed AtPathologist BmdxjzwriXGK93.6(H)4.5 - 11.5 K/uL05/02/2025 12:43 AM [facility] PATHOLOG[facility] LABORATORYRBC3.63(L)4.50 - 5.90 M/uL05/02/2025 12:43 AM [facility] WNPKSEJSJNBifbxeyxcb14.7(L)13.9 - 16.3 g/dL05/02/2025 12:43 AM [facility] BLQZQFXFWIRqotyuhqsf39.4(L)41.0 - 53.0 %05/02/2025 12:43 AM [facility] XHWQRBFPUKWBF8445 - 100 fL 05/02/2025 12:43 AM [facility] RRLEVZHIGVIJC99.526.0 - 34.0 pg05/02/2025 12:43 AM [facility] WUDZMJCDOCGUQJ82.1(L)32.0 - 35.9 g/dL05/02/2025 12:43 AM [facility] ITJLIUKZFDWhwomksx432619 - 400 K/uL05/02/2025 12:43 AM [facility] PATHOLOGY LABORATORYRDW-CV13.811.5 - 14.5 %05/02/2025 12:43 AM EDT [facility] PATHOLOGY LABORATORYMPV7.77.5 - 11.2 fL05/02/2025 12:43 AM [facility] PATHOLOGY LABORATORYSpecimen (Source)Anatomical Location / Laterality Collection Method / VolumeCollection TimeReceived TimeBloodBLOOD SPECIMEN / UnknownCentral Line / Yemzthx9705/02/2025 12:25 AM EDT05/02/2025 12:37 AM EDT Narrative Authorizing ProviderResult TypeResult StatusDick Felipe MD98 GENERAL LABFinal ResultPerforming OrganizationAddressCity/State/ZIP CodePhone Number [facility] [address] [place] [phone] * TRIGLYCERIDES (05/02/2025 12:25 AM EDT)ComponentValueRef RangeTest Method Analysis TimePerformed AtPathologist SxzinmvolTlqsesedmlaoc016<150 mg/dL 05/02/2025 1:17 AM [facility] PATHOLOGY LABORATORYComment: Normal: < 150 mg/dL Borderline High: 150-199 mg/dL High: 200-499 mg/dL Very High: > = 500 mg/dL Specimen (Source)Anatomical Location / LateralityCollection Method / Volume Collection TimeReceived TimeBloodBLOOD SPECIMEN / UnknownCentral Line / Unknown 05/02/2025 12:25 AM EDT05/02/2025 12:37 AM EDT Narrative Authorizing ProviderResult TypeResult StatusDick Felipe MD98 GENERAL LABFinal ResultPerforming OrganizationAddEn[facility] of Yorkty/State/ZIP CodePhone Number [facility] [address] [place] [phone] * PHOSPHORUS (05/02/2025 12:25 AM EDT)ComponentValueRef RangeTest MethodAnalysis TimePerformed AtPathologist SignaturePhosphorus, Serum3.92.5 - 5.0 mg/dL 05/02/2025 1:17 AM [facility] PATHOLOGY LABORATORYSpecimen (Source)Anatomical Location / LateralityCollection Method / VolumeCollection TimeReceived Time BloodBLOOD SPECIMEN / UnknownCentral Line / Wzfbzdb4505/02/2025 12:25 AM EDT 05/02/2025 12:37 AM EDT Narrative Authorizing ProviderResult TypeResult StatusDick Felipe MD98 GENERAL LABFinal ResultPerforming OrganizationAddEn[facility]ty/State/ZIP CodePhone Number [facility] [address] [place] [phone] * MAGNESIUM (05/02/2025 12:25 AM EDT)ComponentValueRef RangeTest MethodAnalysis TimePerformed AtPathologist SignatureMagnesium2.31.9 - 2.7 mg/dL05/02/2025 1:17 AM [facility] PATHOLOGY LABORATORYSpecimen (Source)Anatomical Location / LateralityCollection Method / VolumeCollection TimeReceived TimeBloodBLOOD SPECIMEN / UnknownCentral Line / Pgzbynr8505/02/2025 12:25 AM EDT05/02/2025 12:37 AM EDT Narrative Authorizing ProviderResult TypeResult StatusDick LI GENERAL LABFinal ResultPerforming OrganizationAddEn[facility]ty/State/ZIP CodePhone Number [facility] [address] [place] [phone] * (ABNORMAL) GLUCOSE, FINGERSTICK-IN OFFICE (05/01/2025 5:33 PM EDT)Component ValueRef RangeTest MethodAnalysis TimePerformed AtPathologist Signature Glucose, PGG502(H)74 - 109 mg/dL05/01/2025 5:40 PM EDTNURSING GLUCOSE PROGRAM Comment:Notified RN ADOLFO ROCHE
Specimen (Source)Anatomical Location / LateralityCollection Method / VolumeCollection TimeReceived TimeBloodBLOOD SPECIMEN / Qehnetj4705/01/2025 5:33 PM EDT05/01/2025 5:40 PM EDT Narrative Authorizing ProviderResult TypeResult StatusMariangel MARTÍNEZ BACK OFFICE LABS Final ResultPerforming OrganizationAddressCity/State/ZIP CodePhone Number NURSING GLUCOSE PROGRAM [address] [place] [phone] * (ABNORMAL) GLUCOSE, FINGERSTICK-IN OFFICE (05/01/2025 11:49 AM EDT)Component ValueRef RangeTest MethodAnalysis TimePerformed AtPathologist Signature Glucose, WXL505(H)74 - 109 mg/dL05/01/2025 11:56 AM EDTNURSING GLUCOSE PROGRAM Specimen (Source)Anatomical Location / LateralityCollection Method / Volume Collection TimeReceived TimeBloodBLOOD SPECIMEN / Ziswxwm4705/01/2025 11:49 AM EDT05/01/2025 11:56 AM EDT Narrative Authorizing ProviderResult TypeResult StatusMariangel MARTÍNEZ BACK OFFICE LABS Final ResultPerforming OrganizationAddressCity/State/ZIP CodePhone Number NURSING GLUCOSE PROGRAM [address] [place] [phone] * (ABNORMAL) GLUCOSE, FINGERSTICK-IN OFFICE (05/01/2025 6:54 AM EDT)Component ValueRef RangeTest MethodAnalysis TimePerformed AtPathologist Signature Glucose, NPD957(H)74 - 109 mg/dL05/01/2025 6:59 AM EDTNURSING GLUCOSE PROGRAM Specimen (Source)Anatomical Location / LateralityCollection Method / Volume Collection TimeReceived TimeBloodBLOOD SPECIMEN / Iledike7205/01/2025 6:54 AM EDT05/01/2025 6:59 AM EDT Narrative Authorizing ProviderResult TypeResult StatusMariangel MARTÍNEZ BACK OFFICE LABS Final ResultPerforming OrganizationAddEncompass [facility] Yorkty/State/ZIP CodePhone Number NURSING GLUCOSE PROGRAM [address] [place] [phone] * (ABNORMAL) GLUCOSE, FINGERSTICK-IN OFFICE (05/01/2025 1:33 AM EDT)Component ValueRef RangeTest MethodAnalysis TimePerformed AtPathologist Signature Glucose, LEE092(H)74 - 109 mg/dL05/01/2025 1:40 AM EDTNURSING GLUCOSE PROGRAM Specimen (Source)Anatomical Location / LateralityCollection Method / Volume Collection TimeReceived TimeBloodBLOOD SPECIMEN / Mpodwax1305/01/2025 1:33 AM EDT05/01/2025 1:40 AM EDT Narrative Authorizing ProviderResult TypeResult StatusAlikendra Singh MDEC BACK OFFICE LABS Final ResultPerforming OrganizationAddressCity/State/ZIP CodePhone Number NURSING GLUCOSE PROGRAM [address] [place] [address] * (ABNORMAL) HEPATIC FUNCTION PANEL (05/01/2025 12:34 AM EDT)ComponentValueRef RangeTest MethodAnalysis TimePerformed AtPathologist SignatureAlbumin2.5(L)3.5 - 5.7 g/dL05/01/2025 1:11 AM [facility] PATHOLOGY LABORATORYBilirubin, Direct0.23 (H)0.03 - 0.18 mg/dL05/01/2025 1:11 AM [facility] PATHOLOGY LABORATORYBilirubin, Total0.50.3 - 1.0 mg/dL05/01/2025 1:11 AM [facility] PATHOLOGY LABORATORYComment: Note updated reference range.Alkaline Ukohrilazoj8441 - 104 IU/L05/01/2025 1:11 AM [facility] PATHOLOGY LABORATORYALT (SGPT)177 - 52 IU/L05/01/2025 1:11 AM [facility] PATHOLOGY LABORATORYAST (SGOT)2913 - 39 IU/L05/01/2025 1:11 AM [facility] PATHOLOG[facility] LABORATORYProtein, Total4.5(L)6.1 - 7.9 g/dL05/01/2025 1:11 AM EDT [facility] PATHOLOGY LABORATORYComment:Note updated reference range.Specimen (Source) Anatomical Location / LateralityCollection Method / VolumeCollection Time Received TimeBloodBLOOD SPECIMEN / UnknownCentral Line / Wdxnnsx1605/01/2025 12:34 AM EDT05/01/2025 12:42 AM EDT Narrative Authorizing ProviderResult TypeResult StatusDick Felipe MD98 GENERAL LABFinal ResultPerforming OrganizationAddressCity/State/ZIP CodePhone Number [facility]OR[facility] [address] [place] [address] * (ABNORMAL) BASIC METABOLIC PANEL (05/01/2025 12:34 AM EDT)ComponentValueRef RangeTest MethodAnalysis TimePerformed AtPathologist OtdjwrsawIpfqyll212(H)74 - 109 mg/dL05/01/2025 1:11 AM [facility] RVHBAHQSQPTnmeca939595 - 145 mmol/L05/01/2025 1:11 AM [facility] PATH[facility] LABORATORYPotassium3.63.5 - 5.0 mmol/L05/01/2025 1:11 AM [facility] PATH[facility] LABORATORYCarbon Meiazsx0209 - 31 mmol/L05/01/2025 1:11 AM [facility] IORAAFSMPHJvfbtesh19313 - 107 mmol/L 05/01/2025 1:11 AM [facility] PATH[facility] LABORATORYBlood Urea Qgrllyqo55 - 25 mg/dL 05/01/2025 1:11 AM [facility] PATH[facility] LABORATORYCreatinine0.65(L)0.70 - 1.30 mg/dL05/01/2025 1:11 AM [facility] PATHOLOG[facility] LABORATORYCalcium7.5(L)8.6 - 10.3 mg/dL05/01/2025 1:11 AM [facility] PATH[facility] LABORATORYAnion Igl7396 - 20 05/01/2025 1:11 AM [facility] PATHOLOG[facility] LABORATORYEstimated GFR (CKD-EPI)109>=60 mL/min/1.53vzy4605/01/2025 1:11 AM [facility] PATHOLOGY LABORATORYComment: 2020 CKD EPI Equation using Creatinine without Race Comment: ??Estimated glomerular filtration rate (eGFR) is calculated without a race coefficient. Values should be interpreted in the context of the patient's full clinical presentation. Reference: 1. Terrance C, Tal M, Arnold SIDHU, et al.. A Unifying Approach for GFR Estimation: Recommendations of the NKF-ASN Task Force on Reassessing the Inclusion of Race in Diagnosing Kidney Disease. AmericanJournal of Kidney Diseases 202;79(2):268-88.e1. 2. N Engl J Med 2021 Vol. 385 Issue 19 Pages 3969-5757 Specimen (Source)Anatomical Location / LateralityCollection Method / Volume Collection TimeReceived TimeBloodBLOOD SPECIMEN / UnknownCentral Line / Unknown 05/01/2025 12:34 AM EDT05/01/2025 12:42 AM EDT Narrative Authorizing ProviderResult TypeResult StatusDick LI GENERAL LABFinal ResultPerforming OrganizationAddressCity/State/ZIP CodePhone Number [facility] [address], [place] * (ABNORMAL) COMPLETE BLOOD COUNT (05/01/2025 12:34 AM EDT)ComponentValueRef RangeTest MethodAnalysis TimePerformed AtPathologist LdlpnqojsOQS19.4(H)4.5 - 11.5 K/05/01/2025 12:48 AM [facility] PATH[facility] LABORATORYRBC4.15(L)4.50 - 5.90 M/uL05/01/2025 12:48 AM [facility] KQVHRHTXDOWfiktlymqq16.3(L)13.9 - 16.3 g/dL05/01/2025 12:48 AM [facility] AWAMDQAQBIAxgjatcmxi22.6(L)41.0 - 53.0 %05/01/2025 12:48 AM [facility] TGBWCFVGBZEPR9913 - 100 fL 05/01/2025 12:48 AM [facility] KVEAWXUZGPFUI50.126.0 - 34.0 pg05/01/2025 12:48 AM [facility] ZPLZPMXHIEEUNT11.532.0 - 35.9 g/dL05/01/2025 12:48 AM [facility] SGCEYBANTHYxkhmkpi733660 - 400 K/05/01/2025 12:48 AM EDT [facility] PATHOLOGY LABORATORYRDW-CV13.811.5 - 14.5 %05/01/2025 12:48 AM [facility] PATH[facility] LABORATORYMPV7.87.5 - 11.2 fL05/01/2025 12:48 AM [facility] PATHOLOGY LABORATORYSpecimen (Source)Anatomical Location / LateralityCollection Method / VolumeCollection TimeReceived TimeBloodBLOOD SPECIMEN / UnknownCentral Line / Pkdlulk5105/01/2025 12:34 AM EDT05/01/2025 12:42 AM EDT Narrative Authorizing ProviderResult TypeResult StatusDick LI GENERAL LABFinal ResultPerforming OrganizationAddressCity/State/ZIP CodePhone Number [facility] [address] [place] [address] * TRIGLYCERIDES (05/01/2025 12:34 AM EDT)ComponentValueRef RangeTest Method Analysis TimePerformed AtPathologist ZubktoaazWrvkdijorkswe371<150 mg/dL 05/01/2025 1:11 AM [facility] PATHOLOG[facility] LABORATORYComment: Normal: < 150 mg/dL Borderline High: 150-199 mg/dL High: 200-499 mg/dL Very High: > = 500 mg/dL Specimen (Source)Anatomical Location / LateralityCollection Method / Volume Collection TimeReceived TimeBloodBLOOD SPECIMEN / UnknownCentral Line / Unknown 05/01/2025 12:34 AM EDT05/01/2025 12:42 AM EDT Narrative Authorizing ProviderResult TypeResult StatusDick LI GENERAL LABFinal ResultPerforming OrganizationAddressCity/State/ZIP CodePhone Number [facility] [address] [place] [phone] * (ABNORMAL) PHOSPHORUS (05/01/2025 12:34 AM EDT)ComponentValueRef RangeTest MethodAnalysis TimePerformed AtPathologist SignaturePhosphorus, Serum5.3(H)2.5 - 5.0 mg/dL05/01/2025 1:11 AM [facility] PATH[facility] LABORATORYSpecimen (Source) Anatomical Location / LateralityCollection Method / VolumeCollection Time Received TimeBloodBLOOD SPECIMEN / UnknownCentral Line / Wizbkkq5905/01/2025 12:34 AM EDT05/01/2025 12:42 AM EDT Narrative Authorizing ProviderResult TypeResult StatusDick LI GENERAL LABFinal ResultPerforming OrganizationAddressCity/State/ZIP CodePhone Number [facility] [address] [place] [phone] * MAGNESIUM (05/01/2025 12:34 AM EDT)ComponentValueRef RangeTest MethodAnalysis TimePerformed AtPathologist SignatureMagnesium2.41.9 - 2.7 mg/dL05/01/2025 1:11 AM [facility] PATH[facility] LABORATORYSpecimen (Source)Anatomical Location / LateralityCollection Method / VolumeCollection TimeReceived TimeBloodBLOOD SPECIMEN / UnknownCentral Line / Asnztxl6605/01/2025 12:34 AM EDT05/01/2025 12:42 AM EDT Narrative Authorizing ProviderResult TypeResult StatusDick Felipe MD98 GENERAL LABFinal ResultPerforming OrganizationAddressCity/State/ZIP CodePhone Number [facility] [address] [place] [address] * SPECIMEN FOR SURGICAL PATH (04/30/2025 8:38 PM EDT)ComponentValueRef RangeTest MethodAnalysis TimePerformed AtPathologist SignatureCase ReportSurgical Pathology Report ? Case: [id number] ? Authorizing Provider: ??Domonique Milton MD ?Collected: ? 04/30/20252037 ? Ordering Location: ? [facility] OR ?Received: ?05/03/2025 1017 ? Pathologist: ? Sacha Sanchez MD ? Specimen: ?Colon, Sigmoid colon-suture david proximal ? 05/04/2025 1:18 PM [facility] PATHOLOGY LABORATORYFinal DiagnosisA. Colon, Sigmoid colon-suture david proximal Diverticular disease of colon, with diverticulitis, abscess, serositis, and perforation. No evidence of neoplasm. Margins of resection viable. . I certify that I personally conducted the diagnostic evaluation of the above specimen(s) and have rendered the final diagnosis(es). 05/04/2025 1:18 PM [facility]OR[facility] at 1318 EDTClinical Gdbzhbihtcx02/23/2025 1:18 PM EDT [facility] PATHOLOGY LABORATORYGross DescriptionA. Requisitioned as sigmoid colon . The specimen is received fresh in one container, labeled with the patient's name and medical recordnumber. Marked as sigmoid colon . The specimen consists of an unoriented segment of large bowel, 13.5 cm in length with a maximum circumference of 5 cm. The specimen has been surgically oriented with a suture at the proximal margin. The external surface is pink-newman, smooth, dull dusky unremarkablefor adherent white -nicolas exudate. Both resection margins are closed. The mucosa is pink-newman, prominently folded and remarkable for multiple mucosal outpouchings consistent with diverticula. A perforation is located 5 cm from the distal margin. Sections: represent A1-A2. Proximal margin, paired, en face (1 each) A3-A4. Distal margin, paired, en face (1 each A5-A6. Perpendicular sections of perforation to grossly normal bowel wall (1 each) A7-A8. Mucosal outpouchings consistent with diverticula (1 each) LILY Parker 05/04/2025 1:18 PM [facility] PATHOLOGY LABORATORYSpecimen (Source)Anatomical Location / LateralityCollection Method / VolumeCollection TimeReceived Time TissueSPECIMEN FROM COLON / Vitdlui0204/30/2025 8:38 PM EDT05/03/2025 10:17 AM EDT Narrative Authorizing ProviderResult TypeResult StatusStacy Yoan MARTÍNEZ ANATOMICAL PATHOLOGY (LAB)Final ResultPerforming OrganizationAddressCity/State/ZIP Code Phone Number [facility] [address] [place] [address] * (ABNORMAL) FUNGAL CULTURE & OLU PREP (04/30/2025 8:22 PM EDT)ComponentValueRef RangeTest MethodAnalysis TimePerformed AtPathologist SignatureFungus Culture Positive Culture Report(A)05/22/2025 1:59 PM [facility] Fungus CultureCulture yields Racquel albicans IZABELLA 05/22/2025 1:59 PM [facility] PATH[facility] LABORATORYFungal elementsYeast Present 05/22/2025 1:59 PM [facility] PATH[facility] LABORATORYSpecimen (Source)Anatomical Location / LateralityCollection Method / VolumeCollection TimeReceived TimeSwab SWAB FROM PELVIS / Ijvmfoc3004/30/2025 8:22 PM EDT04/30/2025 10:32 PM EDT Narrative Authorizing ProviderResult TypeResult StatusDick MARTÍNEZ MICROBIOLOGYFinal ResultPerforming OrganizationAddressCity/State/ZIP CodePhone Number [facility] [address] [place] [phone] * ANAEROBIC CULTURE, MISC (04/30/2025 8:22 PM EDT)ComponentValueRef RangeTest MethodAnalysis TimePerformed AtPathologist SignatureAnaerobe CultureNo Anaerobes hjihyufc71/26/2025 7:26 AM [facility] PATH[facility] LABORATORYSpecimen (Source)Anatomical Location / LateralityCollection Method / VolumeCollection TimeReceived TimeSwabSWAB FROM PELVIS / Ckccwvh4704/30/2025 8:22 PM EDT 04/30/2025 10:32 PM EDT Narrative Authorizing ProviderResult TypeResult StatusDick MARTÍNEZ MICROBIOLOGYFinal ResultPerforming OrganizationAddressCity/State/ZIP CodePhone Number [facility] [address] [place] [phone] * (ABNORMAL) AEROBIC WOUND CULTURE (04/30/2025 8:22 PM EDT)ComponentValueRef RangeTest MethodAnalysis TimePerformed AtPathologist SignatureMisc Pyogen CulturePositive Culture Report(A)05/02/2025 6:00 PM [facility] PATH[facility] LABORATORYMisc Pyogen CultureRare Racquel pniiglgf25/21/2025 6:00 PM ED[facility] PATHOLOGY LABORATORYGram Stain3+ Polymorphonuclear Jacucvhiqw39/21/2025 6:00 PM [facility] PATH[facility] LABORATORYGram StainNo Squamous Epithelial Cells seen 05/02/2025 6:00 PM [facility] PATH[facility] LABORATORYGram StainNo organisms seen 05/02/2025 6:00 PM [facility] PATH[facility] LABORATORYSpecimen (Source)Anatomical Location / LateralityCollection Method / VolumeCollection TimeReceived Time SwabSWAB FROM PELVIS / Dqkczpp2604/30/2025 8:22 PM EDT04/30/2025 10:32 PM EDT Narrative [facility] - 05/02/2025 6:00 PM EDT Authorizing ProviderResult TypeResult StatusDomonique MARTÍNEZ MICROBIOLOGY Final ResultPerforming OrganizationAddressCity/State/ZIP CodePhone Number [facility] [address] [place] [phone] * GLUCOSE, FINGERSTICK-IN OFFICE (04/30/2025 4:55 PM EDT)ComponentValueRef Range Test MethodAnalysis TimePerformed AtPathologist SignatureGlucose, YDP56221 - 109 mg/dL04/30/2025 5:04 PM EDTNURSING GLUCOSE PROGRAMSpecimen (Source) Anatomical Location / LateralityCollection Method / VolumeCollection Time Received TimeBloodBLOOD SPECIMEN / Cpcpdbb7804/30/2025 4:55 PM EDT04/30/2025 5:04 PM EDT Narrative Authorizing ProviderResult TypeResult StatusMariangel MARTÍNEZ BACK OFFICE LABS Final ResultPerforming OrganizationAddressCity/State/ZIP CodePhone Number NURSING GLUCOSE PROGRAM [address] [place] [address] * XA PICC INSERT ADULT RN (HILARIA) (04/30/2025 3:30 PM EDT)Specimen (Source) Anatomical Location / LateralityCollection Method / VolumeCollection Time Received Time Narrative Authorizing ProviderResult TypeResult StatusAguila MARTÍNEZ INVASIVE RADIOLOGYFinal Result * XR ABDOMEN AP 1 VIEW (04/30/2025 2:41 PM EDT)Anatomical RegionLaterality ModalityXR AbdomenN/AComputed RadiographySpecimen (Source)Anatomical Location / LateralityCollection Method / VolumeCollection TimeReceived Time04/30/2025 3:13 PM EDT Narrative 04/30/2025 3:14 PM EDT EXAMINATION: XR ABDOMEN AP 1 VIEWPRO 04/30/2025 02:41 PM CLINICAL HISTORY: NGT position ASSOCIATED DIAGNOSIS: ORDERING PROVIDER: AGUILA MARTÍNEZ TECHNDENIS NOTE: COMPARISON: XR ABDOMEN AP 1 VIEW 04/27/2025 6:[address] ABDOMEN/PELVIS W/ CONTRAST 04/30/2025 12:20 PM FINDINGS: Limited study for nasogastric tube placement. Nasogastric tube terminates overlying the proximal gastric body region with its side-port overlyingthe gastric cardia region. Intestinal gas pattern: Gas distended loops of small bowel in the upper abdomen with gas in a nondistended colon, concerning for a partial small bowel obstruction. Peritoneum: No pneumoperitoneum. Calcifications: No pathologic intra-abdominal calcification. Osseous structures: Unremarkable. Included lower chest: Grossly clear lung bases. IMPRESSION: 1. ??Satisfactory position of the nasogastric tube. 2. ??Gas distended loops of small bowel in the upper abdomen with gas in a nondistended colon, concerning for a partial small bowel obstruction. MACRO: None Procedure Note Baldemar Chopra, DO - 04/30/2025 EXAMINATION: XR ABDOMEN AP 1 VIEWPRO 04/30/2025 02:41 PM CLINICAL HISTORY: NGT position ASSOCIATED DIAGNOSIS: ORDERING PROVIDER: AGUILA MARTÍNEZ TECHNOLOGISTS NOTE: COMPARISON: XR ABDOMEN AP 1 VIEW 04/27/2025 6:[address] ABDOMEN/PELVISW/ CONTRAST 04/30/2025 12:20 PM FINDINGS: Limited study for nasogastric tube placement. Nasogastric tube terminates overlying the proximal gastric body regionwith its side-port overlying the gastric cardia region. Intestinal gas pattern: Gas distended loops of small bowel in the upperabdomen with gas in a nondistended colon, concerning for a partial smallbowel obstruction. Peritoneum: No pneumoperitoneum. Calcifications: No pathologic intra-abdominal calcification. Osseous structures: Unremarkable. Included lower chest: Grossly clear lung bases. IMPRESSION: 1. Satisfactory position of the nasogastric tube. 2. Gas distended loops of small bowel in the upper abdomen with gas in a nondistended colon, concerning for a partial small bowel obstruction. MACRO: None Authorizing ProviderResult TypeResult StatusCamlonnie Martínez MDEC DIAGNOSTIC X-RAYFinal Result * (ABNORMAL) BASIC METABOLIC PANEL (04/30/2025 1:11 PM EDT)ComponentValueRef RangeTest MethodAnalysis TimePerformed AtPathologist CapobxryfRkckfdz5798 - 109 mg/dL04/30/2025 1:49 PM [facility] TWAWJKQABLJpmlgk465325 - 145 mmol/L04/30/2025 1:49 PM ED[facility] LABORATORYPotassium3.3(L)3.5 - 5.0 mmol/L04/30/2025 1:49 PM EDLAUREL [facility] PATH[facility] LABORATORYCarbon Vpqmkwf4602 - 31 mmol/L04/30/2025 1:49 PM [facility] XDOXEUMXGNJoavchnw34458 - 107 mmol/L 04/30/2025 1:49 PM [facility] PATHOLOGY LABORATORYBlood Urea Fyzlidoo67 - 25 mg/dL 04/30/2025 1:49 PM [facility] PATHOLOGY LABORATORYCreatinine0.64(L)0.70 - 1.30 mg/dL04/30/2025 1:49 PM [facility] PATHOLOGY LABORATORYCalcium8.0(L)8.6 - 10.3 mg/dL04/30/2025 1:49 PM [facility] PATHOLOGY LABORATORYAnion Gap9(L)10 - 20 04/30/2025 1:49 PM [facility] PATHOLOGY LABORATORYEstimated GFR (CKD-EPI)109>=60 mL/min/1.98ljg6804/30/2025 1:49 PM [facility] PATHOLOGY LABORATORYComment: 2020 CKD EPI Equation using Creatinine without Race Comment: ??Estimated glomerular filtration rate (eGFR) is calculated without a race coefficient. Values should be interpreted in the context of the patient's full clinical presentation. Reference: 1. Terrance C, Tal M, Arnold DC, et al.. A Unifying Approach for GFR Estimation: Recommendations of the NKF-ASN Task Force on Reassessing the Inclusion of Race in Diagnosing Kidney Disease. AmericanJournal of Kidney Diseases 2021;79(2):268-88.e1. 2. N Engl J Med 1 Vol. 385 Issue 19 Pages 3440-1709 Specimen (Source)Anatomical Location / LateralityCollection Method / Volume Collection TimeReceived TimeBloodBLOOD SPECIMEN / UnknownVenipuncture / Unknown 04/30/2025 1:11 PM EDT04/30/2025 1:26 PM EDT Narrative Authorizing ProviderResult TypeResult StatusCamilana Martínez MD98 GENERAL LAB Final ResultPerforming OrganizationAddressCity/State/ZIP CodePhone Number [facility] [address] [place] [address] * TYPE AND SCREEN (04/30/2025 1:11 PM EDT)ComponentValueRef RangeTest Method Analysis TimePerformed AtPathologist SignatureABO Rh TypeA Kgnkjeno92/19/2025 2:19 PM EDLAUREL [facility] PATH[facility] LABORATORYAb Screen JhoqltPawgtsmz66/19/2025 2:19 PM [facility] PATHOLOGY LABORATORYSpecimen Expiration [id number]/19/2025 2:19 PM [facility] PATHOLOGY LABORATORYABO Rh/Jennifer/TXRX HistoryA Yywkhsvw49/19/2025 2:19 PM [facility] PATHOLOGY LABORATORYSpecimen (Source)Anatomical Location / LateralityCollection Method / VolumeCollection TimeReceived TimeBloodBLOOD SPECIMEN / UnknownVenipuncture / Raspmwh8804/30/2025 1:11 PM EDT04/30/2025 1:22 PM EDT Narrative Authorizing ProviderResult TypeResult StatusAguila Martínez MDEC BLOOD BANK Final ResultPerforming OrganizationAddressCity/State/ZIP CodePhone Number [facility] [address] [place] [address] * PROTHROMBIN TIME AND INR (04/30/2025 1:11 PM EDT)ComponentValueRef RangeTest MethodAnalysis TimePerformed AtPathologist YuwjfakitIfokmxf49.39.7 - 12.9 sec 04/30/2025 2:00 PM [facility] PATHOLOGY LABORATORYINR1.010.90 - 1.10004/30/2025 2:00 PM [facility] PATHOLOGY LABORATORYSpecimen (Source)Anatomical Location / LateralityCollection Method / VolumeCollection TimeReceived TimeBloodBLOOD SPECIMEN / UnknownVenipuncture / Zfshubf7304/30/2025 1:11 PM EDT04/30/2025 1:26 PM EDT Narrative Authorizing ProviderResult TypeResult StatusAguila Martínez MD98 GENERAL LAB Final ResultPerforming OrganizationAddressCity/State/ZIP CodePhone Number [facility] [address] [place] [phone] * PARTIAL THROMBOPLASTIN TIME (04/30/2025 1:11 PM EDT)ComponentValueRef Range Test MethodAnalysis TimePerformed AtPathologist VzbuakkwwlXNR7678 - 37 sec 04/30/2025 2:00 PM [facility] PATHOLOGY LABORATORYSpecimen (Source)Anatomical Location / LateralityCollection Method / VolumeCollection TimeReceived Time BloodBLOOD SPECIMEN / UnknownVenipuncture / Qacuqyf6804/30/2025 1:11 PM EDT 04/30/2025 1:26 PM EDT Narrative Authorizing ProviderResult TypeResult StatusAguila Martínez MD98 GENERAL LAB Final ResultPerforming OrganizationAddressCity/State/ZIP CodePhone Number [facility] [address] [place] [address] * CT ABDOMEN/PELVIS W/ CONTRAST (04/30/2025 12:19 PM EDT)ComponentValueRef Range Test MethodAnalysis TimePerformed AtPathologist SignatureCTDI VOL0.01 (mGy),9.94 (mGy),13.89 (mGy)RADIOLOGYPHANTOM TYPEIEC Body Dosimetry Phantom,IEC Body Dosimetry Phantom,IEC Body Dosimetry PhantomRADIOLOGYCT DLP 847.78 (mGy.cm)RADIOLOGYCT SeriesTopogram,ABD PEL WITH,3 MIN DELAYRADIOLOGY Anatomical RegionLateralityModalityCT Abdomen, Pelvis and lower extremitiesN/A Computed TomographySpecimen (Source)Anatomical Location / LateralityCollection Method / VolumeCollection TimeReceived Time04/30/2025 12:24 PM EDT Narrative 04/30/2025 12:46 PM EDT EXAMINATION: CT ABDOMEN/PELVIS W/ CONTRASTPRO 04/30/2025 12:19 PM CLINICAL HISTORY: Diverticulitis; PO AND IV CONTRAST complicated diverticulitis not progressing ASSOCIATED DIAGNOSIS: Diverticulitis PO AND IV CONTRAST complicated diverticulitis not progressing ORDERING PROVIDER: AGUILA MARTÍNEZ TECHNOLOGISTS NOTE: COMPARISON: CT BODY IMAGE IMPORT(HILARIA) 04/25/2025 8:34 PM TECHNIQUE: Contiguous axial images were obtained through the abdomen and pelvis from the level of the diaphragmatic domes through the pubic symphysis following bolus administration of intravenous contrast. MPR sagittal and coronal reconstructions were obtained from the axial data. Before infusion of intravenous contrast, radiology personnel investigated the possibility of an allergic history and of any history of reaction to iodinated contrast material. Contrast Protocol: Omnipaque 350 [>or =100lb] 100 ml [<100 lb] 1 ml per 1 lb. INTRA-PROCEDURE MEDS: iohexol (OMNIPAQUE) 300 MG/ML injection 50 mL Route: Oral iohexol (OMNIPAQUE) 350 MG/ML injection 100 mL Route: Intravenous FINDINGS: Included images of the lower thorax: Small bilateral pleural effusions, left greater than right, with associated compressive atelectasis. Hepatobiliary: Somewhat hypodense appearance of the liver suggestive of steatosis. Left lobe hypodensity again seen, likely a cyst or hemangioma. The gallbladder is contracted, limiting evaluation, however there is mild wall thickening and hyperemia, and acute cholecystitis is not excluded. Pancreas: Unremarkable Spleen: Unremarkable Adrenal Glands: Small left adrenal hypodense nodule, incompletely characterized but most likely representing an adenoma. Normal right adrenal gland. Kidneys, ureters, and bladder: No calculi or hydroureteronephrosis. Benign simple cyst measuring 1.7 cm at the left kidney upper pole. Abdominal and pelvic vasculature: Atherosclerotic wall calcifications are present without abdominalaortic aneurysm. GI tract: There is a small bowel obstruction with multiple air-fluid levels and dilation measuring up to 4.5 cm. No definite transition point is identified, however it is likely within the right lower quadrant, as decompressed distal ileum is seen. Rectosigmoid wall thickening again seen, related to diverticulitis. Peritoneum and retroperitoneum: Extensive complex branching abscess formation in the pelvis associated with perforated diverticulitis. The largest collection measures 7.4 x 2.8 cm in axial dimension (Series 2, Image 139). Additional abscesses measure 5.9 x 3.6 cm (Series 2, Image 136), 3.7 x 2.0 cm(Series 2, Image 129), 2.9 x 2.5 cm (Series 2, Image 119), 2.2 x 1.8 cm (Series 2, Image 119) and 5.2 x 1.5 cm (Series 2, Image 140). Small to moderate amount of free fluid. No intraperitoneal free air. Lymph Nodes: No abdominal or pelvic lymphadenopathy. Prostate and seminal vesicles: Poorly evaluated by CT. Visualized musculoskeletal structures: No acute fracture or destructive osseous lesion is identified. IMPRESSION: 1. ??Perforated sigmoid diverticulitis with extensive complex branching abscess formation. 2. ??Small bowel obstruction with transition point likely within the right lower quadrant. 3. ??Findings raising the possibility of cholecystitis. Consider gallbladder ultrasound for furtherevaluation as clinically warranted. 4. ??Small bilateral pleural effusions, left greater than right, and small to moderate amount of abdominopelvic free fluid. No intraperitoneal free air. MACRO: None Procedure Note Adal Guadalupe MD - 04/30/2025 EXAMINATION: CT ABDOMEN/PELVIS W/ CONTRASTPRO 04/30/2025 12:19 PM CLINICAL HISTORY: Diverticulitis; PO AND IV CONTRAST complicateddiverticulitis not progressing ASSOCIATED DIAGNOSIS: Diverticulitis PO AND IV CONTRAST complicated diverticulitis not progressing ORDERING PROVIDER: AGUILA MARTÍNEZ TECHNOLOGISTS NOTE: COMPARISON: CT BODY IMAGE IMPORT(HILARIA) 04/25/2025 8:34 PM TECHNIQUE: Contiguous axial images were obtained through the abdomen andpelvis from the level of the diaphragmatic domes through the pubicsymphysis following bolus administration of intravenous contrast. MPRsagittal and coronal reconstructions were obtained from the axial data.Before infusion of intravenous contrast, radiology personnel investigatedthe possibility of an allergic history and of any history of reaction toiodinated contrast material. Contrast Protocol: Omnipaque 350 [>or =100lb]100 ml [<100 lb] 1 ml per 1 lb. INTRA-PROCEDURE MEDS: iohexol (OMNIPAQUE) 300 MG/ML injection 50 mL Route: Oral iohexol (OMNIPAQUE) 350 MG/ML injection 100 mL Route: Intravenous FINDINGS: Included images of the lower thorax: Small bilateral pleural effusions,left greater than right, with associated compressive atelectasis. Hepatobiliary: Somewhat hypodense appearance of the liver suggestive of steatosis. Left lobe hypodensity again seen, likely a cyst or hemangioma.The gallbladder is contracted, limiting evaluation, however there is mildwall thickening and hyperemia, and acute cholecystitis is not excluded. Pancreas: Unremarkable Spleen: Unremarkable Adrenal Glands: Small left adrenal hypodense nodule, incompletelycharacterized but most likely representing an adenoma. Normal rightadrenal gland. Kidneys, ureters, and bladder: No calculi or hydroureteronephrosis. Benignsimple cyst measuring 1.7 cm at the left kidney upper pole. Abdominal and pelvic vasculature: Atherosclerotic wall calcifications arepresent without abdominal aortic aneurysm. GI tract: There is a small bowel obstruction with multiple air-fluidlevels and dilation measuring up to 4.5 cm. No definite transition pointis identified, however it is likely within the right lower quadrant, asdecompressed distal ileum is seen. Rectosigmoid wall thickening againseen, related to diverticulitis. Peritoneum and retroperitoneum: Extensive complex branching abscessformation in the pelvis associated with perforated diverticulitis. Thelargest collection measures 7.4 x 2.8 cm in axial dimension (Series 2,Image 139). Additional abscesses measure 5.9 x 3.6 cm (Series 2, Fujox077), 3.7 x 2.0 cm (Series 2, Image 129), 2.9 x 2.5 cm (Series 2, Feusp191), 2.2 x 1.8 cm (Series 2, Image 119) and 5.2 x 1.5 cm (Series 2, Ayahb547). Small to moderate amount of free fluid. No intraperitoneal free air. Lymph Nodes: No abdominal or pelvic lymphadenopathy. Prostate and seminal vesicles: Poorly evaluated by CT. Visualized musculoskeletal structures: No acute fracture or destructiveosseous lesion is identified. IMPRESSION: 1. Perforated sigmoid diverticulitis with extensive complex branchingabscess formation. 2. Small bowel obstruction with transition point likely within the rightlower quadrant. 3. Findings raising the possibility of cholecystitis. Considergallbladder ultrasound for further evaluation as clinically warranted. 4. Small bilateral pleural effusions, left greater than right, and smallto moderate amount of abdominopelvic free fluid. No intraperitoneal freeair. MACRO: None Authorizing ProviderResult TypeResult StatusCamlonnie MARTÍNEZ CT SCAN Final Result * (ABNORMAL) GLUCOSE, FINGERSTICK-IN OFFICE (04/30/2025 11:47 AM EDT)Component ValueRef RangeTest MethodAnalysis TimePerformed AtPathologist Signature Glucose, YCK850(H)74 - 109 mg/dL04/30/2025 11:53 AM EDTNURSING GLUCOSE PROGRAM Comment:Notified RN ADOLFO ROCHE
Specimen (Source)Anatomical Location / LateralityCollection Method / VolumeCollection TimeReceived TimeBloodBLOOD SPECIMEN / Lgmvvou6704/30/2025 11:47 AM EDT04/30/2025 11:53 AM EDT Narrative Authorizing ProviderResult TypeResult StatusAlikendra MARTÍNEZ BACK OFFICE LABS Final ResultPerforming OrganizationAddressCity/State/ZIP CodePhone Number NURSING GLUCOSE PROGRAM [address] [place] [phone] * CLOSTRIDIUM DIFFICILE (04/30/2025 10:10 AM EDT)ComponentValueRef RangeTest MethodAnalysis TimePerformed AtPathologist SignatureC. difficile DNANegative Dcpaokdt75/19/2025 11:18 AM [facility] PATH[facility] LABORATORYSpecimen (Source) Anatomical Location / LateralityCollection Method / VolumeCollection Time Received TimeStoolSTOOL SPECIMEN / Dclaotq6404/30/2025 10:10 AM EDT04/30/2025 10:16 AM EDT Narrative [facility] - 04/30/2025 11:18 AM EDT C. difficile DNA test was performed by real-time PCR based qualitative in vitro diagnostic test for the direct detection of the C. difficile toxin B gene (tcdB) targets in stool specimens. ?? Results should be interpreted in conjunction with information from the patient clinical evaluation and other diagnostic testing Authorizing ProviderResult TypeResult Baljit BASSETT MICROBIOLOGYFinal ResultPerforming OrganizationAddressCity/State/ZIP CodePhone Number [facility] [address] [place] [phone] * GLUCOSE, FINGERSTICK-IN OFFICE (04/30/2025 8:21 AM EDT)ComponentValueRef Range Test MethodAnalysis TimePerformed AtPathologist SignatureGlucose, TYJ8967 - 109 mg/dL04/30/2025 8:27 AM EDTNURSING GLUCOSE PROGRAMSpecimen (Source) Anatomical Location / LateralityCollection Method / VolumeCollection Time Received TimeBloodBLOOD SPECIMEN / Qlmwbij1804/30/2025 8:21 AM EDT04/30/2025 8:27 AM EDT Narrative Authorizing ProviderResult TypeResult StatusMariangel MARTÍNEZ BACK OFFICE LABS Final ResultPerforming OrganizationAddressCity/State/ZIP CodePhone Number NURSING GLUCOSE PROGRAM [address] [place] [address] * (ABNORMAL) BASIC METABOLIC PANEL (04/30/2025 3:31 AM EDT)ComponentValueRef RangeTest MethodAnalysis TimePerformed AtPathologist EzukosisgQxfleei79568 - 109 mg/dL04/30/2025 4:05 AM EDLAUREL [facility] BEAMQGXJJDFxiidv279148 - 145 mmol/L04/30/2025 4:05 AM EDLAUREL [facility] PATHOLOGY LABORATORYPotassium3.1(L)3.5 - 5.0 mmol/L04/30/2025 4:05 AM EDLAUREL [facility] PATHOLOGY LABORATORYCarbon Cmwwbeb4957 - 31 mmol/L04/30/2025 4:05 AM [facility] PATHOLOG[facility] IUWIRGSHRFKlsaeohl08654 - 107 mmol/L 04/30/2025 4:05 AM [facility] PATHOLOGY LABORATORYBlood Urea Tnprvjac21 - 25 mg/dL 04/30/2025 4:05 AM [facility] PATHOLOGY LABORATORYCreatinine0.52(L)0.70 - 1.30 mg/dL04/30/2025 4:05 AM [facility] PATHOLOGY LABORATORYCalcium7.7(L)8.6 - 10.3 mg/dL04/30/2025 4:05 AM [facility] PATHOLOGY LABORATORYAnion Csr4675 - 20 04/30/2025 4:05 AM [facility] PATHOLOGY LABORATORYEstimated GFR (CKD-EPI)116>=60 mL/min/1.29sgc3504/30/2025 4:05 AM [facility] PATHOLOGY LABORATORYComment: 2020 CKD EPI Equation using Creatinine without Race Comment: ??Estimated glomerular filtration rate (eGFR) is calculated without a race coefficient. Values should be interpreted in the context of the patient's full clinical presentation. Reference: 1. Terrance C, Tal M, Arnold DC, et al.. A Unifying Approach for GFR Estimation: Recommendations of the NKF-ASN Task Force on Reassessing the Inclusion of Race in Diagnosing Kidney Disease. AmericanJournal of Kidney Diseases 2021;79(2):268-88.e1. 2. N Engl J Med 2021 Vol. 385 Issue 19 Pages 8545-2046 Specimen (Source)Anatomical Location / LateralityCollection Method / Volume Collection TimeReceived TimeBloodBLOOD SPECIMEN / UnknownVenipuncture / Unknown 04/30/2025 3:31 AM EDT04/30/2025 3:37 AM EDT Narrative Authorizing ProviderResult TypeResult StatusDick Felipe MD98 GENERAL LABFinal ResultPerforming OrganizationAddressCity/State/ZIP CodePhone Number [facility] [address] [place] [phone] * (ABNORMAL) COMPLETE BLOOD COUNT (04/30/2025 3:31 AM EDT)ComponentValueRef RangeTest MethodAnalysis TimePerformed AtPathologist CykwrijreVYS53.9(H)4.5 - 11.5 K/uL04/30/2025 3:51 AM [facility] PATHOLOGY LABORATORYRBC3.83(L)4.50 - 5.90 M/uL04/30/2025 3:51 AM [facility] ONCIUJQFZTJlwqdofqzt55.6(L)13.9 - 16.3 g/dL04/30/2025 3:51 AM [facility] PATH[facility] YZGUIVDFSOOjyssnzvsb15.7(L)41.0 - 53.0 %04/30/2025 3:51 AM [facility] CFRNVQPKSMYBJ6138 - 100 fL04/30/2025 3:51 AM [facility] OTRGNBWVZOGDQ23.926.0 - 34.0 pg04/30/2025 3:51 AM [facility] PATH[facility] TXTQWUIMZFAGGP15.332.0 - 35.9 g/dL04/30/2025 3:51 AM [facility] PATH[facility] OBWMCJIJDYVuhnjsez443856 - 400 K/04/30/2025 3:51 AM [facility] PATHOLOGY LABORATORYRDW-CV13.411.5 - 14.5 %04/30/2025 3:51 AM [facility] PATHOLOGY LABORATORYMPV7.4(L)7.5 - 11.2 fL04/30/2025 3:51 AM [facility] Specimen (Source)Anatomical Location / LateralityCollection Method / Volume Collection TimeReceived TimeBloodBLOOD SPECIMEN / UnknownVenipuncture / Wbizonk0804/30/2025 3:31 AM EDT04/30/2025 3:37 AM EDT Narrative Authorizing ProviderResult TypeResult StatusDick Felipe MD98 GENERAL LABFinal ResultPerforming OrganizationAddressCity/State/ZIP CodePhone Number [facility] [address] [place] [address] * PHOSPHORUS (04/30/2025 3:31 AM EDT)ComponentValueRef RangeTest MethodAnalysis TimePerformed AtPathologist SignaturePhosphorus, Serum3.82.5 - 5.0 mg/dL 04/30/2025 4:05 AM [facility] PATHOLOGY LABORATORYSpecimen (Source)Anatomical Location / LateralityCollection Method / VolumeCollection TimeReceived Time BloodBLOOD SPECIMEN / UnknownVenipuncture / Trdxnjl5204/30/2025 3:31 AM EDT 04/30/2025 3:37 AM EDT Narrative Authorizing ProviderResult TypeResult StatusDick Felipe MD98 GENERAL LABFinal ResultPerforming OrganizationAddressCity/State/ZIP CodePhone Number [facility] [address] [place] [phone] * MAGNESIUM (04/30/2025 3:31 AM EDT)ComponentValueRef RangeTest MethodAnalysis TimePerformed AtPathologist SignatureMagnesium1.91.9 - 2.7 mg/dL04/30/2025 4:05 AM EDLAUREL [facility] PATH[facility]Y LABORATORYSpecimen (Source)Anatomical Location / LateralityCollection Method / VolumeCollection TimeReceived TimeBloodBLOOD SPECIMEN / UnknownVenipuncture / Kgjonei1504/30/2025 3:31 AM EDT04/30/2025 3:37 AM EDT Narrative Authorizing ProviderResult TypeResult StatusDick Felipe MD98 GENERAL LABFinal ResultPerforming OrganizationAddressCity/State/ZIP CodePhone Number [facility] [address] [place] [phone] * GLUCOSE, FINGERSTICK-IN OFFICE (04/29/2025 9:42 PM EDT)ComponentValueRef Range Test MethodAnalysis TimePerformed AtPathologist SignatureGlucose, QCC6534 - 109 mg/dL04/29/2025 9:49 PM EDTNURSING GLUCOSE PROGRAMSpecimen (Source) Anatomical Location / LateralityCollection Method / VolumeCollection Time Received TimeBloodBLOOD SPECIMEN / Mdedckb0304/29/2025 9:42 PM EDT04/29/2025 9:49 PM EDT Narrative Authorizing ProviderResult TypeResult StatusMariangel MARTÍNEZ BACK OFFICE LABS Final ResultPerforming OrganizationAddressCity/State/ZIP CodePhone Number NURSING GLUCOSE PROGRAM [address] [place] [phone] * GLUCOSE, FINGERSTICK-IN OFFICE (04/29/2025 4:24 PM EDT)ComponentValueRef Range Test MethodAnalysis TimePerformed AtPathologist SignatureGlucose, ZGS69788 - 109 mg/dL04/29/2025 4:31 PM EDTNURSING GLUCOSE PROGRAMSpecimen (Source) Anatomical Location / LateralityCollection Method / VolumeCollection Time Received TimeBloodBLOOD SPECIMEN / Xlvtpzg7804/29/2025 4:24 PM EDT04/29/2025 4:31 PM EDT Narrative Authorizing ProviderResult TypeResult StatusMariangel MARTÍNEZ BACK OFFICE LABS Final ResultPerforming OrganizationAddressCity/State/ZIP CodePhone Number NURSING GLUCOSE PROGRAM [address] [place] [address] * GLUCOSE, FINGERSTICK-IN OFFICE (04/29/2025 11:18 AM EDT)ComponentValueRef RangeTest MethodAnalysis TimePerformed AtPathologist SignatureGlucose, XLS010 74 - 109 mg/dL04/29/2025 11:24 AM EDTNURSING GLUCOSE PROGRAMSpecimen (Source) Anatomical Location / LateralityCollection Method / VolumeCollection Time Received TimeBloodBLOOD SPECIMEN / Actjxcp7904/29/2025 11:18 AM EDT04/29/2025 11:24 AM EDT Narrative Authorizing ProviderResult TypeResult StatusAlikendra MARTÍNEZ BACK OFFICE LABS Final ResultPerforming OrganizationAddressty/State/ZIP CodePhone Number NURSING GLUCOSE PROGRAM [address] [place] [phone] * GLUCOSE, FINGERSTICK-IN OFFICE (04/29/2025 9:05 AM EDT)ComponentValueRef Range Test MethodAnalysis TimePerformed AtPathologist SignatureGlucose, NYR62921 - 109 mg/dL04/29/2025 9:12 AM EDTNURSING GLUCOSE PROGRAMSpecimen (Source) Anatomical Location / LateralityCollection Method / VolumeCollection Time Received TimeBloodBLOOD SPECIMEN / Fzcrrij7304/29/2025 9:05 AM EDT04/29/2025 9:12 AM EDT Narrative Authorizing ProviderResult TypeResult StatusMariangel MARTÍNEZ BACK OFFICE LABS Final ResultPerforming OrganizationAddEncompass Health [facility] of Yorkty/State/ZIP CodePhone Number NURSING GLUCOSE PROGRAM [address] [place] [phone] * (ABNORMAL) HEPATIC FUNCTION PANEL (04/29/2025 3:28 AM EDT)ComponentValueRef RangeTest MethodAnalysis TimePerformed AtPathologist SignatureAlbumin2.6(L)3.5 - 5.7 g/dL04/29/2025 5:16 AM [facility] PATHOLOGY LABORATORYBilirubin, Direct0.12 0.03 - 0.18 mg/dL04/29/2025 5:16 AM [facility] PATHOLOGY LABORATORYBilirubin, Total0.50.3 - 1.0 mg/dL04/29/2025 5:16 AM [facility] PATHOLOGY LABORATORYComment: Note updated reference range.Alkaline Emekmkptlwj2627 - 104 IU/L04/29/2025 5:16 AM [facility] PATHOLOGY LABORATORYALT (SGPT)137 - 52 IU/L04/29/2025 5:16 AM [facility] PATHOLOGY LABORATORYAST (SGOT)2213 - 39 IU/L04/29/2025 5:16 AM [facility] PATHOLOG[facility] LABORATORYProtein, Total4.8(L)6.1 - 7.9 g/dL04/29/2025 5:16 AM EDT [facility] PATHOLOGY LABORATORYComment:Note updated reference range.Specimen (Source) Anatomical Location / LateralityCollection Method / VolumeCollection Time Received TimeBloodBLOOD SPECIMEN / UnknownVenipuncture / Xoiedic0704/29/2025 3:28 AM EDT04/29/2025 3:55 AM EDT Narrative Authorizing ProviderResult TypeResult StatusDick Felipe MD98 GENERAL LABFinal ResultPerforming OrganizationAddressCity/State/ZIP CodePhone Number [facility] [address] [place] [phone] * (ABNORMAL) BASIC METABOLIC PANEL (04/29/2025 3:28 AM EDT)ComponentValueRef RangeTest MethodAnalysis TimePerformed AtPathologist VyrokvsxdLlcfzof366(H)74 - 109 mg/dL04/29/2025 5:16 AM [facility] PATH[facility] PMKEFOTBQGIolybd555987 - 145 mmol/L04/29/2025 5:16 AM [facility] PATHOLOGY LABORATORYPotassium3.3(L)3.5 - 5.0 mmol/L04/29/2025 5:16 AM [facility] PATHOLOGY LABORATORYCarbon Hofbxeo2198 - 31 mmol/L04/29/2025 5:16 AM [facility] PATH[facility] GTSCOBPGNNJezmahtg60822 - 107 mmol/L 04/29/2025 5:16 AM [facility] PATHOLOGY LABORATORYBlood Urea Fclqatip825 - 25 mg/dL04/29/2025 5:16 AM [facility] PATHOLOGY LABORATORYCreatinine0.63(L)0.70 - 1.30 mg/dL04/29/2025 5:16 AM [facility] PATHOLOGY LABORATORYCalcium8.0(L)8.6 - 10.3 mg/dL04/29/2025 5:16 AM [facility] PATHOLOGY LABORATORYAnion Zbz4510 - 20 04/29/2025 5:16 AM [facility] PATHOLOGY LABORATORYEstimated GFR (CKD-EPI)110>=60 mL/min/1.55kwp5704/29/2025 5:16 AM [facility] PATHOLOGY LABORATORYComment: 2020 CKD EPI Equation using Creatinine without Race Comment: ??Estimated glomerular filtration rate (eGFR) is calculated without a race coefficient. Values should be interpreted in the context of the patient's full clinical presentation. Reference: 1. Terrance C, Tal M, Arnold DC, et al.. A Unifying Approach for GFR Estimation: Recommendations of the NKF-ASN Task Force on Reassessing the Inclusion of Race in Diagnosing Kidney Disease. AmericanJournal of Kidney Diseases 2021;79(2):268-88.e1. 2. N Engl J Med 1 Vol. 385 Issue 19 Pages 8656-1250 Specimen (Source)Anatomical Location / LateralityCollection Method / Volume Collection TimeReceived TimeBloodBLOOD SPECIMEN / UnknownVenipuncture / Unknown 04/29/2025 3:28 AM EDT04/29/2025 3:55 AM EDT Narrative Authorizing ProviderResult TypeResult StatusDick Felipe MD98 GENERAL LABFinal ResultPerforming OrganizationAddressCity/State/ZIP CodePhone Number [facility] [address] [place] [phone] * (ABNORMAL) COMPLETE BLOOD COUNT (04/29/2025 3:28 AM EDT)ComponentValueRef RangeTest MethodAnalysis TimePerformed AtPathologist SignatureWBC7.84.5 - 11.5 K/uL04/29/2025 4:51 AM [facility] PATHOLOGY LABORATORYRBC3.87(L)4.50 - 5.90 M/uL 04/29/2025 4:51 AM [facility] PATH[facility] CTUEAFNRUYMysfqeaase53.5(L)13.9 - 16.3 g/dL04/29/2025 4:51 AM [facility] PATH[facility] CLBFUGBPGEZxzzuhiood16.9(L)41.0 - 53.0 %04/29/2025 4:51 AM [facility] NGPOWHWPUGEQP3165 - 100 fL04/29/2025 4:51 AM [facility] PATH[facility] DUCJSCLEWEDRT28.326.0 - 34.0 pg04/29/2025 4:51 AM [facility] PATH[facility] LYHGXBSNWGNLFX09.832.0 - 35.9 g/dL04/29/2025 4:51 AM [facility] ICNSSXRPSEBoldejxz893210 - 400 K/uL04/29/2025 4:51 AM [facility] PATHOLOGY LABORATORYRDW-CV13.611.5 - 14.5 %04/29/2025 4:51 AM [facility] PATHOLOGY LABORATORYMPV8.07.5 - 11.2 fL04/29/2025 4:51 AM [facility]ORY Specimen (Source)Anatomical Location / LateralityCollection Method / Volume Collection TimeReceived TimeBloodBLOOD SPECIMEN / UnknownVenipuncture / Hlgvift6304/29/2025 3:28 AM EDT04/29/2025 3:55 AM EDT Narrative Authorizing ProviderResult TypeResult StatusDick LI GENERAL LABFinal ResultPerforming OrganizationAddressCity/State/ZIP CodePhone Number [facility] [address] [place] [phone] * (ABNORMAL) TRIGLYCERIDES (04/29/2025 3:28 AM EDT)ComponentValueRef RangeTest MethodAnalysis TimePerformed AtPathologist UjvfpvrgsSfcwsvytoaekh893(H)<150 mg/dL04/29/2025 5:16 AM [facility] PATHOLOGY LABORATORYComment: Normal: < 150 mg/dL Borderline High: 150-199 mg/dL High: 200-499 mg/dL Very High: > = 500 mg/dL Specimen (Source)Anatomical Location / LateralityCollection Method / Volume Collection TimeReceived TimeBloodBLOOD SPECIMEN / UnknownVenipuncture / Unknown 04/29/2025 3:28 AM EDT04/29/2025 3:55 AM EDT Narrative Authorizing ProviderResult TypeResult StatusDick LI GENERAL LABFinal ResultPerforming OrganizationAddressCity/State/ZIP CodePhone Number [facility] [address] [place] [phone] * PHOSPHORUS (04/29/2025 3:28 AM EDT)ComponentValueRef RangeTest MethodAnalysis TimePerformed AtPathologist SignaturePhosphorus, Serum3.12.5 - 5.0 mg/dL 04/29/2025 5:16 AM EDLAUREL [facility] PATH[facility] LABORATORYSpecimen (Source)Anatomical Location / LateralityCollection Method / VolumeCollection TimeReceived Time BloodBLOOD SPECIMEN / UnknownVenipuncture / Banzukl0604/29/2025 3:28 AM EDT 04/29/2025 3:55 AM EDT Narrative Authorizing ProviderResult TypeResult StatusDick Felipe MD98 GENERAL LABFinal ResultPerforming OrganizationAddressCity/State/ZIP CodePhone Number [facility] [address] [place] [phone] * MAGNESIUM (04/29/2025 3:28 AM EDT)ComponentValueRef RangeTest MethodAnalysis TimePerformed AtPathologist SignatureMagnesium2.21.9 - 2.7 mg/dL04/29/2025 5:16 AM [facility] PATHOLOGY LABORATORYSpecimen (Source)Anatomical Location / LateralityCollection Method / VolumeCollection TimeReceived TimeBloodBLOOD SPECIMEN / UnknownVenipuncture / Pplohmc5104/29/2025 3:28 AM EDT04/29/2025 3:55 AM EDT Narrative Authorizing ProviderResult TypeResult Cami Felipe MD98 GENERAL LABFinal ResultPerforming OrganizationAddressCity/State/ZIP CodePhone Number [facility] [address] [place] [phone] * (ABNORMAL) GLUCOSE, FINGERSTICK-IN OFFICE (04/29/2025 3:25 AM EDT)Component ValueRef RangeTest MethodAnalysis TimePerformed AtPathologist Signature Glucose, JDF281(H)74 - 109 mg/dL04/29/2025 3:33 AM EDTNURSING GLUCOSE PROGRAM Specimen (Source)Anatomical Location / LateralityCollection Method / Volume Collection TimeReceived TimeBloodBLOOD SPECIMEN / Kxxsjpa3304/29/2025 3:25 AM EDT04/29/2025 3:33 AM EDT Narrative Authorizing ProviderResult TypeResult Arnie MARTÍNEZ BACK OFFICE LABS Final ResultPerforming OrganizationAddressty/State/ZIP CodePhone Number NURSING GLUCOSE PROGRAM [address] [place] [address] * GLUCOSE, FINGERSTICK-IN OFFICE (04/28/2025 9:06 PM EDT)ComponentValueRef Range Test MethodAnalysis TimePerformed AtPathologist SignatureGlucose, NJF61422 - 109 mg/dL04/28/2025 9:12 PM EDTNURSING GLUCOSE PROGRAMComment:Notified SULY MATA MD
Specimen (Source)Anatomical Location / LateralityCollection Method / VolumeCollection TimeReceived TimeBloodBLOOD SPECIMEN / Lnyfhzw1004/28/2025 9:06 PM EDT04/28/2025 9:12 PM EDT Narrative Authorizing ProviderResult TypeResult StatusAlikendra MARTÍNEZ BACK OFFICE LABS Final ResultPerforming OrganizationAddressCity/State/ZIP CodePhone Number NURSING GLUCOSE PROGRAM [address] [place] [address] * GLUCOSE, FINGERSTICK-IN OFFICE (04/28/2025 2:54 PM EDT)ComponentValueRef Range Test MethodAnalysis TimePerformed AtPathologist SignatureGlucose, XAG05832 - 109 mg/dL04/28/2025 3:13 PM EDTNURSING GLUCOSE PROGRAMComment: Follow Protocol
Notified SULY MATA MD
Specimen (Source)Anatomical Location / LateralityCollection Method / Volume Collection TimeReceived TimeBloodBLOOD SPECIMEN / Qdaftot2404/28/2025 2:54 PM EDT 04/28/2025 3:13 PM EDT Narrative Authorizing ProviderResult TypeResult StatusAlikendra MARTÍNEZ BACK OFFICE LABS Final ResultPerforming OrganizationAddressCity/State/ZIP CodePhone Number NURSING GLUCOSE PROGRAM [address] [place] [address] * (ABNORMAL) GLUCOSE, FINGERSTICK-IN OFFICE (04/28/2025 8:50 AM EDT)Component ValueRef RangeTest MethodAnalysis TimePerformed AtPathologist Signature Glucose, KRZ278(H)74 - 109 mg/dL04/28/2025 9:01 AM EDTNURSING GLUCOSE PROGRAM Specimen (Source)Anatomical Location / LateralityCollection Method / Volume Collection TimeReceived TimeBloodBLOOD SPECIMEN / Euoljrm3404/28/2025 8:50 AM EDT04/28/2025 9:01 AM EDT Narrative Authorizing ProviderResult TypeResult StatusAlicia Francisco MARTÍNEZ BACK OFFICE LABS Final ResultPerforming OrganizationAddressCity/State/ZIP CodePhone Number NURSING GLUCOSE PROGRAM [address] [place] [address] * (ABNORMAL) BASIC METABOLIC PANEL (04/28/2025 3:47 AM EDT)ComponentValueRef RangeTest MethodAnalysis TimePerformed AtPathologist VdvaavgjsHllleta057(H)74 - 109 mg/dL04/28/2025 3:47 AM [facility] DDYCWORTWNWnbbeh387095 - 145 mmol/L04/28/2025 3:47 AM [facility] PATHOLOGY LABORATORYPotassium3.2(L)3.5 - 5.0 mmol/L04/28/2025 3:47 AM [facility] PATHOLOGY LABORATORYCarbon Ytrlwal2087 - 31 mmol/L04/28/2025 3:47 AM [facility] FDQGJDXYQVRutkwrtr02513 - 107 mmol/L 04/28/2025 3:47 AM [facility] PATHOLOGY LABORATORYBlood Urea Vxnrtnza248 - 25 mg/dL04/28/2025 3:47 AM [facility] PATHOLOGY LABORATORYCreatinine0.65(L)0.70 - 1.30 mg/dL04/28/2025 3:47 AM [facility] PATHOLOGY LABORATORYCalcium8.1(L)8.6 - 10.3 mg/dL04/28/2025 3:47 AM [facility] PATHOLOG[facility] LABORATORYAnion Uxs0571 - 20 04/28/2025 3:47 AM [facility] PATHOLOGY LABORATORYEstimated GFR (CKD-EPI)109>=60 mL/min/1.49vcd9304/28/2025 3:47 AM [facility] PATHOLOGY LABORATORYComment: 2020 CKD EPI Equation using Creatinine without Race Comment: ??Estimated glomerular filtration rate (eGFR) is calculated without a race coefficient. Values should be interpreted in the context of the patient's full clinical presentation. Reference: 1. Terrance C, Tal M, Arnold SIDHU, et al.. A Unifying Approach for GFR Estimation: Recommendations of the NKF-ASN Task Force on Reassessing the Inclusion of Race in Diagnosing Kidney Disease. AmericanJournal of Kidney Diseases 2021;79(2):268-88.e1. 2. N Engl J Med 2021 Vol. 385 Issue 19 Pages 2472-4086 Specimen (Source)Anatomical Location / LateralityCollection Method / Volume Collection TimeReceived TimeBloodBLOOD SPECIMEN / Gngwfgb8804/28/2025 3:47 AM EDT 04/28/2025 3:18 AM EDT Narrative Authorizing ProviderResult TypeResult StatusDick LI GENERAL LABFinal ResultPerforming OrganizationAddressty/State/ZIP CodePhone Number [facility] [address] [place] [phone] * PHOSPHORUS (04/28/2025 3:47 AM EDT)ComponentValueRef RangeTest MethodAnalysis TimePerformed AtPathologist SignaturePhosphorus, Serum3.12.5 - 5.0 mg/dL 04/28/2025 3:47 AM EDLAUREL [facility] PATH[facility] LABORATORYSpecimen (Source)Anatomical Location / LateralityCollection Method / VolumeCollection TimeReceived Time BloodBLOOD SPECIMEN / Mbmshsf9704/28/2025 3:47 AM EDT04/28/2025 3:18 AM EDT Narrative Authorizing ProviderResult TypeResult StatusDick LI GENERAL LABFinal ResultPerforming OrganizationAddEncompass [facility] of Yorkty/State/ZIP CodePhone Number [facility] [address] [place] [phone] * MAGNESIUM (04/28/2025 3:47 AM EDT)ComponentValueRef RangeTest MethodAnalysis TimePerformed AtPathologist SignatureMagnesium1.91.9 - 2.7 mg/dL04/28/2025 3:47 AM [facility] PATHOLOG[facility] LABORATORYSpecimen (Source)Anatomical Location / LateralityCollection Method / VolumeCollection TimeReceived TimeBloodBLOOD SPECIMEN / Wlskgcn4004/28/2025 3:47 AM EDT04/28/2025 3:18 AM EDT Narrative Authorizing ProviderResult TypeResult StatusDick LI GENERAL LABFinal ResultPerforming OrganizationAddEncompass Health Rehabilitation Hospital of Yorkty/State/ZIP CodePhone Number [facility] PATH[facility] LABOR[facility] [address] [place] [address] * (ABNORMAL) GLUCOSE, FINGERSTICK-IN OFFICE (04/28/2025 3:09 AM EDT)Component ValueRef RangeTest MethodAnalysis TimePerformed AtPathologist Signature Glucose, AAQ635(H)74 - 109 mg/dL04/28/2025 3:16 AM EDTNURSING GLUCOSE PROGRAM Comment:Notified RN ADOLFO ROCHE
Specimen (Source)Anatomical Location / LateralityCollection Method / VolumeCollection TimeReceived TimeBloodBLOOD SPECIMEN / Cesvuta2204/28/2025 3:09 AM EDT04/28/2025 3:16 AM EDT Narrative Authorizing ProviderResult TypeResult StatusAlicia Francisco MARTÍNEZ BACK OFFICE LABS Final ResultPerforming OrganizationAddressCity/State/ZIP CodePhone Number NURSING GLUCOSE PROGRAM [address] [place] [address] * (ABNORMAL) COMPLETE BLOOD COUNT (04/28/2025 2:45 AM EDT)ComponentValueRef RangeTest MethodAnalysis TimePerformed AtPathologist YfnptziizVJA17.74.5 - 11.5 K/uL04/28/2025 3:36 AM [facility] PATHOLOGY LABORATORYRBC4.17(L)4.50 - 5.90 M/04/28/2025 3:36 AM [facility] LKXUODWUQZYcheqhfyhp61.7(L)13.9 - 16.3 g/dL04/28/2025 3:36 AM [facility] IXIJUEHIFZXsgaugxmqp19.7(L)41.0 - 53.0 %04/28/2025 3:36 AM [facility] DVFGOXTKWCQVD2401 - 100 fL04/28/2025 3:36 AM [facility] BSGYNTSDRAOQU85.826.0 - 34.0 pg04/28/2025 3:36 AM [facility] ULNHTNKZOVXXIM04.432.0 - 35.9 g/dL04/28/2025 3:36 AM [facility] JWIRKAISSPIdivjgxp168349 - 400 K/uL04/28/2025 3:36 AM [facility] PATHOLOGY LABORATORYRDW-CV13.011.5 - 14.5 %04/28/2025 3:36 AM [facility] PATHOLOGY LABORATORYMPV7.67.5 - 11.2 fL04/28/2025 3:36 AM [facility] Specimen (Source)Anatomical Location / LateralityCollection Method / Volume Collection TimeReceived TimeBloodBLOOD SPECIMEN / Zqcryfx5804/28/2025 2:45 AM EDT04/28/2025 3:18 AM EDT Narrative Authorizing ProviderResult TypeResult StatusDick Felipe MD98 GENERAL LABFinal ResultPerforming OrganizationAddressCity/State/ZIP CodePhone Number [facility] [address] [place] [address] * (ABNORMAL) GLUCOSE, FINGERSTICK-IN OFFICE (04/27/2025 8:58 PM EDT)Component ValueRef RangeTest MethodAnalysis TimePerformed AtPathologist Signature Glucose, YPE118(H)74 - 109 mg/dL04/27/2025 9:04 PM EDTNURSING GLUCOSE PROGRAM Comment:Notified RN ADOLFO ROCHE
Specimen (Source)Anatomical Location / LateralityCollection Method / VolumeCollection TimeReceived TimeBloodBLOOD SPECIMEN / Gaqwpib7704/27/2025 8:58 PM EDT04/27/2025 9:04 PM EDT Narrative Authorizing ProviderResult TypeResult StatusAlikendra Singh MDEC BACK OFFICE LABS Final ResultPerforming OrganizationAddressCity/State/ZIP CodePhone Number NURSING GLUCOSE PROGRAM [address] [place] [address] * XR ABDOMEN AP 1 VIEW (04/27/2025 6:51 PM EDT)Anatomical RegionLaterality ModalityXR AbdomenN/AComputed RadiographySpecimen (Source)Anatomical Location / LateralityCollection Method / VolumeCollection TimeReceived Time04/27/2025 7:04 PM EDT Narrative 04/27/2025 7:05 PM EDT EXAMINATION: XR ABDOMEN AP 1 VIEWPRO 04/27/2025 06:51 PM CLINICAL HISTORY: UPRIGHT POSITION - ??CHECK FOR FREE AIR - KNOWN PNEUMOPERITONEUM ASSOCIATED DIAGNOSIS: ORDERING PROVIDER: [employer] MARTÍNEZ TECHNOLOGISTS NOTE: COMPARISON: CT BODY IMAGE IMPORT(HILARIA) 04/25/2025 8:34 PM IMPRESSION: * ??Moderate pneumoperitoneum is noted below both diaphragms. * ??Extensive abnormal gaseous small bowel distention with air-fluid levels suggesting small bowel obstruction. MACRO: None Procedure Note Prince Boothe MD - 04/27/2025 EXAMINATION: XR ABDOMEN AP 1 VIEWPRO 04/27/2025 06:51 PM CLINICAL HISTORY: UPRIGHT POSITION - CHECK FOR FREE AIR - KNOWNPNEUMOPERITONEUM ASSOCIATED DIAGNOSIS: ORDERING PROVIDER: AGUILA MARTÍNEZ TECHNOLOGISTS NOTE: COMPARISON: CT BODY IMAGE IMPORT(HILARIA) 04/25/2025 8:34 PM IMPRESSION: * Moderate pneumoperitoneum is noted below both diaphragms. * Extensive abnormal gaseous small bowel distention with air-fluid levels suggesting small bowel obstruction. MACRO: None Authorizing ProviderResult TypeResult StatusAguila MARTÍNEZ DIAGNOSTIC X-RAYFinal Result * (ABNORMAL) GLUCOSE, FINGERSTICK-IN OFFICE (04/27/2025 3:47 PM EDT)Component ValueRef RangeTest MethodAnalysis TimePerformed AtPathologist Signature Glucose, IWU451(H)74 - 109 mg/dL04/27/2025 3:54 PM EDTNURSING GLUCOSE PROGRAM Specimen (Source)Anatomical Location / LateralityCollection Method / Volume Collection TimeReceived TimeBloodBLOOD SPECIMEN / Jprcfzn1704/27/2025 3:47 PM EDT04/27/2025 3:54 PM EDT Narrative Authorizing ProviderResult TypeResult Arnie MARTÍNEZ BACK OFFICE LABS Final ResultPerforming OrganizationAddressCity/State/ZIP CodePhone Number NURSING GLUCOSE PROGRAM [address] [place] [phone] * ANTI FXA-LMW HEPARIN (04/27/2025 12:38 PM EDT)ComponentValueRef RangeTest MethodAnalysis TimePerformed AtPathologist SignatureAnti FXA-LMW Heparin Assay 0.29IU/mL04/27/2025 1:14 PM [facility] PATHOLOGY LABORATORYSpecimen (Source) Anatomical Location / LateralityCollection Method / VolumeCollection Time Received TimeBloodBLOOD SPECIMEN / UnknownVenipuncture / Qwgwyxe1704/27/2025 12:38 PM EDT04/27/2025 12:43 PM EDT Narrative [facility] PATH[facility] - 04/27/2025 1:14 PM EDT The recommended therapeutic range for treatment of thrombosis with Low Molecular Weight Heparin is 0.5 - 1.0 IU/mL The recommended range for VTE prophylaxis with Low Molecular Weight Heparin is 0.2 - 0.4 IU/mL. Authorizing ProviderResult TypeResult StatusRika Feng MD98 GENERAL LABFinal ResultPerforming OrganizationAddressCity/State/ZIP CodePhone Number [facility] PATH[facility] LAB[facility] [address] [place] [address] * CONFIRMATION ABO/RH (04/27/2025 12:38 PM EDT)ComponentValueRef RangeTest MethodAnalysis TimePerformed AtPathologist SignatureABO Rh TypeA Positive 04/27/2025 2:01 PM [facility] PATHOLOGY LABORATORYSpecimen Expiration Date [id number]/16/2025 2:01 PM EDLAUREL [facility] PATHOLOGY LABORATORYABO Rh/Jennifer/TXRX HistoryA Icvsmvbc04/16/2025 2:01 PM EDLAUREL [facility] PATH[facility] LABORATORYSpecimen (Source)Anatomical Location / LateralityCollection Method / VolumeCollection TimeReceived TimeBloodBLOOD SPECIMEN / UnknownVenipuncture / Srvmjno7004/27/2025 12:38 PM EDT04/27/2025 1:01 PM EDT Narrative Authorizing ProviderResult TypeResult StatusNlucía Capps MD BLOOD BANKFinal ResultPerforming OrganizationAddressCity/State/ZIP CodePhone Number [facility] [address] [place] [phone] * (ABNORMAL) GLUCOSE, FINGERSTICK-IN OFFICE (04/27/2025 8:48 AM EDT)Component ValueRef RangeTest MethodAnalysis TimePerformed AtPathologist Signature Glucose, EBS673(H)74 - 109 mg/dL04/27/2025 9:01 AM EDTNURSING GLUCOSE PROGRAM Specimen (Source)Anatomical Location / LateralityCollection Method / Volume Collection TimeReceived TimeBloodBLOOD SPECIMEN / Jzhaeey2304/27/2025 8:48 AM EDT04/27/2025 9:01 AM EDT Narrative Authorizing ProviderResult TypeResult StatusAlicikelechi Singh MD BACK OFFICE LABS Final ResultPerforming OrganizationAddressCity/State/ZIP CodePhone Number NURSING GLUCOSE PROGRAM [address] [place] [phone] * (ABNORMAL) BASIC METABOLIC PANEL (04/27/2025 3:27 AM EDT)ComponentValueRef RangeTest MethodAnalysis TimePerformed AtPathologist GjfjttyjlQgduogp336(H)74 - 109 mg/dL04/27/2025 5:05 AM EDLAUREL [facility] KIQHXXZTOOJmsmzq241183 - 145 mmol/L04/27/2025 5:05 AM [facility] PATHOLOG[facility] LABORATORYPotassium4.13.5 - 5.0 mmol/L04/27/2025 5:05 AM [facility] PATHOLOGY LABORATORYComment:Hemolysis present Carbon Qtqtsox5523 - 31 mmol/L04/27/2025 5:05 AM [facility] Icnokeuk02915 - 107 mmol/L04/27/2025 5:05 AM [facility] PATHOLOGY LABORATORYBlood Urea Nwumjreu220 - 25 mg/dL04/27/2025 5:05 AM [facility] Creatinine0.63(L)0.70 - 1.30 mg/dL04/27/2025 5:05 AM [facility] PATHOLOGY LABORATORYCalcium8.1(L)8.6 - 10.3 mg/dL04/27/2025 5:05 AM [facility] PATHOLOGY LABORATORYAnion Vvb8799 - 5:05 AM [facility] Estimated GFR (CKD-EPI)110>=60 mL/min/1.03hug6804/27/2025 5:05 AM [facility] PATHOLOGY LABORATORYComment: 2020 CKD EPI Equation using Creatinine without Race Comment: ??Estimated glomerular filtration rate (eGFR) is calculated without a race coefficient. Values should be interpreted in the context of the patient's full clinical presentation. Reference: 1. Terrance C, Tal M, Arnold DC, et al.. A Unifying Approach for GFR Estimation: Recommendations of the NKF-ASN Task Force on Reassessing the Inclusion of Race in Diagnosing Kidney Disease. AmericanJournal of Kidney Diseases 2021;79(2):268-88.e1. 2. N Engl J Med 1 Vol. 385 Issue 19 Pages 9900-5041 Specimen (Source)Anatomical Location / LateralityCollection Method / Volume Collection TimeReceived TimeBloodBLOOD SPECIMEN / UnknownVenipuncture / Unknown 04/27/2025 3:27 AM EDT04/27/2025 4:04 AM EDT Narrative Authorizing ProviderResult TypeResult StatusNuala Jefry MD98 GENERAL LABFinal ResultPerforming OrganizationAddressCity/State/ZIP CodePhone Number [facility] [address] [place] [phone] * (ABNORMAL) COMPLETE BLOOD COUNT (04/27/2025 3:27 AM EDT)ComponentValueRef RangeTest MethodAnalysis TimePerformed AtPathologist SignatureWBC8.74.5 - 11.5 K/uL04/27/2025 4:19 AM [facility] PATHOLOGY LABORATORYRBC4.36(L)4.50 - 5.90 M/uL 04/27/2025 4:19 AM [facility] OHFRULTSDTHmwdetwjno21.013.9 - 16.3 g/dL 04/27/2025 4:19 AM [facility] EQRNOWZOHKBtuhuhdxwj10.6(L)41.0 - 53.0 % 04/27/2025 4:19 AM [facility] GIGEBTZUAXBPU9480 - 100 fL04/27/2025 4:19 AM [facility] INPKMSUPGDBNJ10.226.0 - 34.0 pg04/27/2025 4:19 AM [facility] ZPTZAJRSICTTID82.632.0 - 35.9 g/dL04/27/2025 4:19 AM [facility] HMRVPCOEFLYrffkwtx556533 - 400 K/uL04/27/2025 4:19 AM [facility] PATHOLOGY LABORATORYRDW-CV13.411.5 - 14.5 %04/27/2025 4:19 AM [facility] PATHOLOGY LABORATORYMPV7.57.5 - 11.2 fL04/27/2025 4:19 AM [facility] Specimen (Source)Anatomical Location / LateralityCollection Method / Volume Collection TimeReceived TimeBloodBLOOD SPECIMEN / UnknownVenipuncture / Jqiboaw1304/27/2025 3:27 AM EDT04/27/2025 4:04 AM EDT Narrative Authorizing ProviderResult TypeResult StatusNuala Jefry ROCHE98 GENERAL LABFinal ResultPerforming OrganizationAddressCity/State/ZIP CodePhone Number [facility] [address] [place] [address] * PHOSPHORUS (04/27/2025 3:27 AM EDT)ComponentValueRef RangeTest MethodAnalysis TimePerformed AtPathologist SignaturePhosphorus, Serum3.52.5 - 5.0 mg/dL 04/27/2025 5:05 AM [facility] PATHOLOGY LABORATORYSpecimen (Source)Anatomical Location / LateralityCollection Method / VolumeCollection TimeReceived Time BloodBLOOD SPECIMEN / UnknownVenipuncture / Abctlpt2504/27/2025 3:27 AM EDT 04/27/2025 4:04 AM EDT Narrative Authorizing ProviderResult TypeResult StatusRogelio Capps MD98 GENERAL LABFinal ResultPerforming OrganizationAddressCity/State/ZIP CodePhone Number [facility] [address] [place] [address] * MAGNESIUM (04/27/2025 3:27 AM EDT)ComponentValueRef RangeTest MethodAnalysis TimePerformed AtPathologist SignatureMagnesium2.31.9 - 2.7 mg/dL04/27/2025 6:32 AM EDLAUREL [facility] PATHOLOG[facility] LABORATORYComment:Hemolysis presentSpecimen (Source) Anatomical Location / LateralityCollection Method / VolumeCollection Time Received TimeBloodBLOOD SPECIMEN / UnknownVenipuncture / Mlpwrkd2604/27/2025 3:27 AM EDT04/27/2025 4:04 AM EDT Narrative Authorizing ProviderResult TypeResult StatusRogelio LI GENERAL LABFinal ResultPerforming OrganizationAddressCity/State/ZIP CodePhone Number [facility] [address] [place] [address] * (ABNORMAL) GLUCOSE, FINGERSTICK-IN OFFICE (04/27/2025 2:32 AM EDT)Component ValueRef RangeTest MethodAnalysis TimePerformed AtPathologist Signature Glucose, SFV734(H)74 - 109 mg/dL04/27/2025 2:38 AM EDTNURSING GLUCOSE PROGRAM Specimen (Source)Anatomical Location / LateralityCollection Method / Volume Collection TimeReceived TimeBloodBLOOD SPECIMEN / Cbimohl9304/27/2025 2:32 AM EDT04/27/2025 2:38 AM EDT Narrative Authorizing ProviderResult TypeResult StatusMariangel MARTÍNEZ BACK OFFICE LABS Final ResultPerforming OrganizationAddressCity/State/ZIP CodePhone Number NURSING GLUCOSE PROGRAM [address] [place] [address] from Last 3 Months Insurance Advance Directives * Full Code (Latest Code Status on File) Date ActivatedDate InactivatedComments04/26/2025 2:45 AM05/18/2025 6:04 PMQuestion AnswerCommentsDocumentation of decision process for this code status:* Discussed with patient or surrogate.?? This is the code status chosen by the patient/surrogate. Care Teams Team MemberRelationshipSpecialtyStart DateEnd Date Dorothea White APRN-BAG LOADER MACHINE OPERATOR [address] [place], [place] [id number] APNGeneral Jzgspxq32/6/25 Mariangel Singh MD [address] [place] [address] [phone] PhysicianGeneral Eillyic51/6/25
== END 2025-07-27 10:06 | disposition home or self-care (01) ==
LOC: CT 10:05
PROVIDERS: PCP Nurse Practitioner Family; Visit Provider Nurse Practitioner Family
DX: R91.8 Other nonspecific abnormal finding of lung field (principal); Z12.2 Encounter for screening for malignant neoplasm of respiratory organs; F17.200 Nicotine dependence, unspecified, uncomplicated
CPT/HCPCS: 71271